=== PATIENT | female | born 1935 | race Caucasian/White ===

== ENCOUNTER 2017-03-03 16:32 | Inpatient (IN) | payer MEDICARE, OTHER ==
[2017-03-03] VITALS (7 sets, daily range): BP systolic 118–153; BP diastolic 54–82; PULSE 82–183; RESP 14–22; TEMP 97.3–97.9; O2SAT 83–98
[~2017-03-03] VITALS: Ht 163.8 cm; Wt 54.6 kg
[~2017-03-03 16:32] MED LIST: CALC1TAB16 PO; CALC500C16 CHEW; DIPH25CA PO; LEVO75TA3 PO; LISI-519 PO; MENT4GEL2 TOPICAL; OMEGCAP PO; POLYDRO EACH EYE; PRED10 PO; SACC1CAP3 PO; TYLE325T PO; VITA250T5 PO; [UNRECOGNIZED DRUG - CODE] IV
[2017-03-03] MEDS ORDERED: SODIUM CHLORID 0.9% 500 ML INJ 500 ML IV ONE (17:00)
[2017-03-03] MEDS ORDERED: DILTIAZEM INJ 125 MG in SODIUM CHLORIDE 0.9% INJ 100 ML IV PRN ×2 (17:00→19:45)
[2017-03-03] MEDS ORDERED: SODIUM CHLORIDE 0.9% FLUSH 5 ML FLUSH IV FLUSH PRN (17:00)
[2017-03-03] MEDS ORDERED: SODIUM CHLORIDE 0.9% FLUSH 10 ML FLUSH IVF PRN (17:00)
[2017-03-03] MEDS ORDERED: DILTIAZEM HCL 25 MG/5 ML VIAL IV PUSH ONE (17:00)
--- NOTE | 2017-03-03 17:19 | PD ---
HPI Chief Complaint: Cardiac Complaint Time Seen by Provider: 16:53 Travel History International Travel<30 days: No Contact w/Intl Traveler<30days: No Traveled to known affect area: No History of Present Illness HPI 81-year-old female patient with history of myasthenia gravis, chronic anemia, presents to the ER today because of intermittent dizziness, palpitations, found to be very tachycardic in the ER. She denies any shortness of breath or chest pains. She denies any vomiting, fevers, or other symptoms. She denies any black stools or blood in the stools. She states she is chronically anemic but they do not know why. Modifying Factors: None Associated Signs & Symptoms: Dizziness, palpitations Risk Factors: None PFSH Past Medical History Arthritis: Yes (jassi. shoulders) Cardiovascular Problems: No Genitourinary: No Musculoskeletal: Yes Neurologic: Yes (mystania gravis) Reproductive: No Respiratory: No Past Surgical History Gynecologic Surgery: Yes (tubal ligation 40 years ago) Social History Alcohol Use: No Tobacco Use: No Substance Use: No Allergies-Medications (Allergen,Severity, Reaction): Coded Allergies: levofloxacin (Unverified Allergy, Intermediate, rash, 03/03/17) Reported Meds & Prescriptions Reported Meds & Active Scripts Active Reported Diphenhydramine (Diphenhydramine HCl) 25 Mg Cap 25 Mg PO BEFORE PRIVIGEN Lisinopril 5 Mg Tab 5 Mg PO DAILY Lubricant Eye Drops Dry Eye Opth (Polyethylene Glycol-Propylene Opth) 0.4-0.3% Drops 1-2 Drop EACH EYE PRN Calcium Citrate-Vitamin D 315-200 Mg-Unit Tab 1 Tab PO DAILY Calcium Carbonate (Antacid) 500 Mg Chew 1,000 Mg CHEW PRN Tylenol (Acetaminophen) 325 Mg Tab 650 Mg PO Q4H PRN Privigen Inj (Immune Globulin) 20 Gm/200 Ml Inj 60 Gm IV [id number] Biofreeze Topical (Menthol Topical) 4 % Gel 1 Applic TOPICAL Q4H PRN [place]-3 Fish Oil/Vitamin (Fish Oil-Cholecalciferol) 1,000-1,000 Mg Cap 1 Cap PO DAILY Levothyroxine (Levothyroxine Sodium) 75 Mcg Tab 75 Mcg PO DAILY Prednisone 10 Mg Tab 10 Mg PO DAILY Probiotic (Saccharomyces Boulardii) Unknown Strength Cap Unknown Dose PO DAILY Vitamin B-12 (Cyanocobalamin) Unknown Strength Tab Unknown Dose PO DAILY Review of Systems Except as stated in HPI: all other systems reviewed are Neg Physical Exam Narrative GENERAL: Pleasant elderly white female patient currently in mild distress. Awake and oriented 3. SKIN: Focused skin assessment warm/dry. HEAD: Atraumatic. Normocephalic. EYES: Pupils equal and round. No scleral icterus. No injection or drainage. ENT: No nasal bleeding or discharge. Mucous membranes pink and moist. NECK: Trachea midline. No JVD. CARDIOVASCULAR: Fast and irregularly irregular. Pulses are present and equal bilaterally. RESPIRATORY: No accessory muscle use. Clear to auscultation. Breath sounds equal bilaterally. GASTROINTESTINAL: Abdomen soft, non-tender, nondistended. Hepatic and splenic margins not palpable. MUSCULOSKELETAL: No obvious deformities. No clubbing. No cyanosis. No edema. NEUROLOGICAL: Awake and alert. No obvious cranial nerve deficits. Motor grossly within normal limits. Normal speech. PSYCHIATRIC: Appropriate mood and affect; insight and judgment normal. Data Data Last Documented VS Vital Signs Date Time Temp Pulse Resp B/P (MAP) Pulse Ox O2 Delivery O2 Flow Rate FiO2 03/03/17 17:23 122 162/65 03/03/17 16:47 16 98 Room Air 03/03/17 16:42 97.9 Orders Orders Complete Blood Count With Diff (03/03/17 16:53) Comprehensive Metabolic Panel (03/03/17 16:53) Magnesium (Mg) (03/03/17 16:53) Ckmb (Isoenzyme) Profile (03/03/17 16:53) Troponin I (03/03/17 16:53) Act Partial Throm Time (Ptt) (03/03/17 16:53) Prothrombin Time / Inr (Pt) (03/03/17 16:53) Urinalysis - C+S If Indicated (03/03/17 16:53) Chest, Single Ap (03/03/17 16:53) Ecg Monitoring (03/03/17 16:53) Iv Access Insert/Monitor (03/03/17 16:53) Oximetry (03/03/17 16:53) Sodium Chloride 0.9% Flush (Ns Flush) (03/03/17 17:00) Diltiazem Inj (Cardizem Inj) (03/03/17 17:00) Diltiazem Inj (Cardizem Inj) (03/03/17 17:00) Sodium Chloride 0.9% Flush (Ns Flush) (03/03/17 17:00) Sodium Chlorid 0.9% 500 Ml Inj (Ns 500 M (03/03/17 17:00) Electrocardiogram (03/03/17 16:49) Enoxaparin Inj (Lovenox Inj) (03/03/17 18:45) Labs Laboratory Tests Test 03/03/17 16:57 White Blood Count 11.3 TH/MM3 Red Blood Count 3.39 MIL/MM3 Hemoglobin 11.3 GM/DL Hematocrit 33.8 % Mean Corpuscular Volume 99.8 FL Mean Corpuscular Hemoglobin 33.2 PG Mean Corpuscular Hemoglobin Concent 33.3 % Red Cell Distribution Width 12.5 % Platelet Count 453 TH/MM3 Mean Platelet Volume 6.6 FL Neutrophils (%) (Auto) 84.5 % Lymphocytes (%) (Auto) 9.7 % Monocytes (%) (Auto) 5.3 % Eosinophils (%) (Auto) 0.1 % Basophils (%) (Auto) 0.4 % Neutrophils # (Auto) 9.5 TH/MM3 Lymphocytes # (Auto) 1.1 TH/MM3 Monocytes # (Auto) 0.6 TH/MM3 Eosinophils # (Auto) 0.0 TH/MM3 Basophils # (Auto) 0.0 TH/MM3 CBC Comment DIFF FINAL Differential Comment Prothrombin Time 10.9 SEC Prothromb Time International Ratio 1.0 RATIO Activated Partial Thromboplast Time 28.9 SEC Blood Urea Nitrogen 12 MG/DL Creatinine 0.77 MG/DL Random Glucose 170 MG/DL Total Protein 7.9 GM/DL Albumin 3.0 GM/DL Calcium Level 10.2 MG/DL Magnesium Level 1.8 MG/DL Alkaline Phosphatase 82 U/L Aspartate Amino Transf (AST/SGOT) 19 U/L Alanine Aminotransferase (ALT/SGPT) 14 U/L Total Bilirubin 0.4 MG/DL Sodium Level 127 MEQ/L Potassium Level 4.2 MEQ/L Chloride Level 90 MEQ/L Carbon Dioxide Level 27.4 MEQ/L Anion Gap 10 MEQ/L Estimat Glomerular Filtration Rate 72 ML/MIN Total Creatine Kinase 93 U/L Troponin I 0.05 NG/ML MDM Medical Decision Making Medical Screen Exam Complete: Yes Emergency Medical Condition: Yes Medical Record Reviewed: Yes Interpretation(s) EKG shows A. fib with rapid ventricular response at a rate of 170 bpm. No signs of acute ST-T changes. Laboratory Tests Test 03/03/17 16:57 White Blood Count 11.3 TH/MM3 (4.0-11.0) Red Blood Count 3.39 MIL/MM3 (4.00-5.30) Hemoglobin 11.3 GM/DL (11.6-15.3) Hematocrit 33.8 % (35.0-46.0) Platelet Count 453 TH/MM3 (150-450) Mean Platelet Volume 6.6 FL (7.0-11.0) Neutrophils (%) (Auto) 84.5 % (16.0-70.0) Neutrophils # (Auto) 9.5 TH/MM3 (1.8-7.7) Random Glucose 170 MG/DL (74-106) Albumin 3.0 GM/DL (3.4-5.0) Calcium Level 10.2 MG/DL (8.5-10.1) Sodium Level 127 MEQ/L (136-145) Chloride Level 90 MEQ/L (98-107) Estimat Glomerular Filtration Rate 72 ML/MIN (>89) Last 24 hours Impressions Chest X-Ray 03/03/17 1653 Signed Impressions: Service Date/Time: Friday, March 03, 2017 17:09 - CONCLUSION: Cardiomegaly with chronic interstitial changes. Eduardo Broderick Jr., MD Differential Diagnosis Dizziness, palpitations: Dysrhythmias versus dehydration versus ACS versus metabolic issues versus pneumonia versus CHF Narrative Course Patient was given Cardizem in the ER and placed on Cardizem drip with good rate response. Vital signs are stable in the ER. Lab work did not indicate significant metabolic issues. Chest x-ray was unremarkable for any acute processes. At this point, patient was discussed with Dr. Tom for admission. Lovenox was given in the ER per discussion. He agrees to admit the patient. Diagnosis Primary Impression: New onset a-fib Admitting Information Admitting Physician Requests: Admit Bart Levin MD Mar 03, 2017 17:19
[2017-03-03 17:31] LABS: AUTOMATED NEUTROPHIL # 9.5 TH/MM3 (1.8-7.7); BASOPHIL % 0.4 % (0.0-2.0); EOSINOPHIL % 0.1 % (0.0-4.0); HEMATOCRIT 33.8 % (35.0-46.0); HEMO FLAGS DIFF FINAL; LYMPH % 9.7 % (9.0-44.0); LYMPHOCYTE # 1.1 TH/MM3 (1.0-4.8); MEAN CELL VOLUME 99.8 FL (80.0-100.0); MEAN CORPUSCULAR HEMOGLOBIN 33.2 PG (27.0-34.0); MEAN CORPUSCULAR HGB CONC 33.3 % (32.0-36.0); MONO % 5.3 % (0.0-8.0); NEUT % 84.5 % (16.0-70.0); PLATELET COUNT 453 TH/MM3 (150-450); RED BLOOD COUNT 3.39 MIL/MM3 (4.00-5.30); RED CELL DISTRIBUTION WIDTH 12.5 % (11.6-17.2); WHITE BLOOD COUNT 11.3 TH/MM3 (4.0-11.0)
--- NOTE | 2017-03-03 17:35 | RADRPT ---
EXAM DATE/TIME: 03/03/2017 17:09 [facility] COMPARISON: No previous studies available for comparison. INDICATIONS : Short of breath. MEDICAL HISTORY : None. SURGICAL HISTORY : None. ENCOUNTER: Initial ACUITY: 1 day PAIN SCORE: 0/10 LOCATION: Bilateral chest FINDINGS: A single portable frontal view the chest shows chronic interstitial changes. No infiltrates or effusi ons. Heart is mildly enlarged. The degenerative spine. High riding humeral heads bilaterally. Erosive changes involving the left humeral head. CONCLUSION: Cardiomegaly with chronic interstitial changes. Eduardo Broderick Jr., MD on March 03, 2017 at 17:27 Board Certified Radiologist. This report was verified electronically.
[2017-03-03 17:46] LABS: ANION GAP 10 MEQ/L (5-15); AST (GOT) 19 U/L (15-37); BICARBONATE 27.4 MEQ/L (21.0-32.0); BLOOD UREA NITROGEN 12 MG/DL (7-18); CHLORIDE 90 MEQ/L (98-107); GLOMERULAR FILTRATION RATE 72 ML/MIN (>89); MAGNESIUM 1.8 MG/DL (1.5-2.5); POTASSIUM 4.2 MEQ/L (3.5-5.1); SODIUM (NA) 127 MEQ/L (136-145)
[2017-03-03 17:47] LABS: ALT (GPT) 14 U/L (10-53); APTT (PATIENT) 28.9 SEC (24.3-30.1); PROTHROMBIN TIME - PATIENT 10.9 SEC (9.8-11.6)
[2017-03-03 17:51] LABS: ALKALINE PHOSPHATASE 82 U/L (45-117); TOTAL BILIRUBIN ADULT 0.4 MG/DL (0.2-1.0)
[2017-03-03 17:54] LABS: CREATINE KINASE 93 U/L (26-192)
[2017-03-03] MEDS ORDERED: ENOXAPARIN SODIUM 60 MG/0.6 ML SYRINGE SQ ONE (18:45)
[2017-03-03 18:49] LABS: BLOOD, URINE SMALL (NEG); COMMENT (UR) CULT NOT INDICATED; CULTURE IF INDICATED CULT NOT INDICATED; GLUCOSE,URINE 70 mg/dL (NEG); KETONE, URINE NEG (NEG); NITRITE,URINE NEG (NEG); URINE COLOR LIGHT-YELLOW (YELLW/STRAW)
[2017-03-03] MEDS ORDERED: ARTIFICIAL TEARS OPTH SOLN 15 ML BTL EACH EYE PRN (19:30)
[2017-03-03] MEDS ORDERED: MENTHOL TOPICAL PRN (19:30)
[2017-03-03] MEDS ORDERED: NALOXONE HCL 0.4 MG/ML AMP IV PUSH PRN (19:45)
[2017-03-03] MEDS ORDERED: MAGNESIUM HYDROXIDE SUSP 30 ML CUP PO PRN (19:45)
[2017-03-03] MEDS ORDERED: ACETAMINOPHEN 325 MG TAB PO PRN (19:45)
[2017-03-03] MEDS ORDERED: ONDANSETRON HCL 4 MG/2 ML VIAL IVP PRN (19:45)
[2017-03-03] MEDS ORDERED: SODIUM CHLORIDE 0.9% FLUSH 10 ML FLUSH IV FLUSH PRN (19:45)
[2017-03-03] MEDS: ASPIRIN 81 MG CHEW TAB PO SCH (20:22)
[2017-03-03] MEDS: SODIUM CHLORIDE 0.9% FLUSH 10 ML FLUSH IV FLUSH SCH (20:54)
[2017-03-03] MEDS: DOCUSATE SODIUM 50 MG/SENNA 8.6 MG TAB PO SCH (21:00)
[2017-03-04] VITALS (9 sets, daily range): BP systolic 127–156; BP diastolic 58–82; PULSE 88–110; RESP 16–20; TEMP 97.6–98.3; O2SAT 93–96
[2017-03-04 05:44] LABS: AUTOMATED NEUTROPHIL # 5.5 TH/MM3 (1.8-7.7); BASOPHIL # 0.1 TH/MM3 (0-0.2); EOSINOPHIL % 0.2 % (0.0-4.0); HEMATOCRIT 30.3 % (35.0-46.0); LYMPH % 22.3 % (9.0-44.0); LYMPHOCYTE # 1.8 TH/MM3 (1.0-4.8); MEAN CELL VOLUME 99.3 FL (80.0-100.0); MEAN CORPUSCULAR HEMOGLOBIN 34.2 PG (27.0-34.0); MEAN CORPUSCULAR HGB CONC 34.4 % (32.0-36.0); MONO % 10.5 % (0.0-8.0); PLATELET COUNT 394 TH/MM3 (150-450); RED BLOOD COUNT 3.05 MIL/MM3 (4.00-5.30); RED CELL DISTRIBUTION WIDTH 12.7 % (11.6-17.2); WHITE BLOOD COUNT 8.3 TH/MM3 (4.0-11.0)
[2017-03-04 05:50] LABS: HEMO FLAGS AUTO DIFF
[2017-03-04 06:07] LABS: BICARBONATE 29.8 MEQ/L (21.0-32.0)
[2017-03-04 06:08] LABS: POTASSIUM 4.2 MEQ/L (3.5-5.1)
[2017-03-04 07:00] LABS: SCAN/DIFF AUTO DIFF CONFIRMED
[2017-03-04] MEDS ORDERED: LISINOPRIL 5 MG TAB PO SCH (09:00)
[2017-03-04] MEDS ORDERED: predniSONE 10 MG TAB PO SCH (09:00)
[2017-03-04] MEDS: CALCIUM/VITAMIN D 250 MG/125 U TAB PO SCH (09:00)
[2017-03-04] MEDS: SODIUM CHLORIDE 0.9% FLUSH 10 ML FLUSH IV FLUSH SCH ×2 (09:00→22:11)
[2017-03-04] MEDS: DOCUSATE SODIUM 50 MG/SENNA 8.6 MG TAB PO SCH ×2 (10:42→22:11)
[2017-03-04] MEDS: ASPIRIN 81 MG CHEW TAB PO SCH (10:42)
[2017-03-04] MEDS: LEVOTHYROXINE SODIUM 100 MCG TAB PO SCH (11:15)
[2017-03-04] MEDS: FLUTICASONE PROPIONATE 50 MCG/ACT 16 GM NASAL SPRAY NASAL SCH ×2 (11:15→22:10)
--- NOTE | 2017-03-04 11:21 | MB ---
cc: JUNE ABREU M.D. DATE OF CONSULTATION: 03/04/2017 REASON FOR CONSULTATION Atrial fibrillation. HISTORY OF PRESENT ILLNESS The patient is an 81-year-old white female with a history of myasthenia gravis, left breast cancer, who was in her usual state of health up until the day of admission when she began to experience quivering palpitations. There was no associated dizziness, syncope, near-syncope, chest pain or shortness of breath. The palpitations subsided after a couple of hours. In the emergency department she was found to be in atrial fibrillation with a rapid ventricular response. Since coming into the hospital she has felt "just fine." She denies any recent chest pains, pedal edema, paroxysmal nocturnal dyspnea. For the most part she is active. PAST MEDICAL HISTORY As above. PAST SURGICAL HISTORY 1. Left lumpectomy for breast cancer. 2. Tubal ligation. MEDICATIONS Her cardiac medications at home are none. She had been on low-dose lisinopril in the past but it was stopped due to low blood pressures. ALLERGIES LEVAQUIN. FAMILY HISTORY Noncontributory. SOCIAL HISTORY The patient is a former smoker. There is no history of alcohol abuse. REVIEW OF SYSTEMS As in the history of present illness, otherwise negative or noncontributory. She also denies headache, melena, bright red blood per rectum, dyspepsia, abdominal pain. PHYSICAL EXAMINATION VITAL SIGNS: On physical examination her blood pressure is 134/66 with a pulse of 80, respirations 20. GENERAL: In general she is a well-developed, well-nourished white female in no acute distress HEENT/NECK: Jugular venous pressure is normal. Carotid pulses are 2+ bilaterally and without bruits. CHEST: Examination of the chest reveals clear lung mejia. CARDIAC: On cardiac examination she has a regular rhythm and rate without S3, S4, or murmur. ABDOMEN: On abdominal examination she has a soft, nontender abdomen. Bowel sounds are present. There is no definite hepatosplenomegaly. EXTREMITIES: Examination of extremities reveals no clubbing, cyanosis or edema. EKG EKG shows atrial fibrillation with a rapid ventricular response, otherwise normal EKG. IMAGING Chest x-ray shows no acute disease. LABORATORY Laboratory data includes WBC 8.3, hemoglobin 10.4, platelets 394, potassium 4.2, BUN 7, creatinine 0.57, troponin 0.06, TSH 2.85. IMPRESSION Paroxysmal atrial fibrillation in this 81-year-old white female with a history of myasthenia gravis and breast cancer. At this time she has reverted back to sinus rhythm. Overall there is no definite evidence for acute coronary syndrome. The slightly elevated troponin level may be due to the tachyarrhythmia. With respect to her thromboembolic risk, it is probably overall low. She denies any history of hypertension, diabetes, stroke, congestive heart failure. She may have been on low-dose lisinopril in the past, but it was stopped due to low blood pressures. RECOMMENDATIONS 1. Start oral Cardizem. 2. Continue daily aspirin. 3. Await her 2-D echo. 4. Continue to monitor until tomorrow morning. 5. Should she have significant atrial fibrillation recurrences in the future, consider anticoagulation therapy such as with Eliquis or Xarelto. MD MARYCRUZ Rios/LUIS ANTONIO /10:44 AM /11:09 AM MTDOmar
--- NOTE | 2017-03-04 12:25 | MH ---
cc: HARRISON TOM DATE OF ADMISSION: 03/03/2017 DATE OF : [address] Harrison Tom[address] PRIMARY CARE PHYSICIAN Dr. Monique. REASON FOR ADMISSION Dizziness, palpitations. HISTORY OF PRESENT ILLNESS The patient is very pleasant 81-year-old female with significant past medical history of myasthenia gravis, also has a history of chronic anemia, arthritis, who came to the ER because of the intermittent dizziness and palpitations. The patient came to the ER and in the ER was evaluated by the ER physician and found to have a new onset atrial fibrillation with RVR. The patient was given Cardizem and started on IV Cardizem, and recommended for admission. The patient at present has no complaint. She has no nausea or vomiting. No chest pain, diaphoresis or palpitations. There is no dizziness. There is no abdominal pain, diarrhea or constipation. She denies any diaphoresis. The patient has no other associated symptoms. As per patient she is taking prednisone and tapering down to 5 mg per day. She is not taking lisinopril anymore at all. PAST MEDICAL HISTORY 1. history of hypertension. 2. Myasthenia gravis. 3. Chronic anemia. MEDICATION Reviewed, please EMR. ALLERGIES The patient is allergic to LEVAQUIN. SOCIAL HISTORY The patient does not smoke, drink or do any drugs. The patient is a retired nurse. REVIEW OF SYSTEMS As described above in the history of present illness, negative for 10 systems. FAMILY HISTORY Noncontributory. PHYSICAL EXAMINATION GENERAL: The patient is alert and oriented x3, well-built, well-nourished, appropriate for age and condition, lying on bed without any apparent distress. As per patient she usually walks with a walking cane and walker and sometimes she uses a wheelchair as well. VITAL SIGNS: The patient is afebrile, pulse is 90, respiratory rate is 20, blood pressure 134/66, pulse ox 95% on room air. HEENT: Head is normocephalic. Negative conjunctival icterus. Mouth unremarkable. NECK: Supple. No increased JVD. Negative thyromegaly. Central trachea. RESPIRATORY SYSTEM: Chest is clear to auscultation. CVS: S1, S2 audible. Unable to hear any S3 gallop. GI: Abdomen soft, no organomegaly. Positive bowel sounds. MUSCULOSKELETAL: Extremities, no cyanosis or pedal edema appreciated. PEG DRIVER: Grossly intact. SKIN: Warm and moist. PSYCHE: Appropriate mood and affect. INVESTIGATIONS Chest x-ray was done which shows cardiomegaly with chronic interstitial changes. LABORATORY DATA WBC and platelet count within normal limits. Hemoglobin 10.4, hematocrit 30.3. Chemistry yesterday sodium was 127, today 130. Chloride 93. BMP within normal limits. Troponin first set was 0.05, second 0.06, third 0.06. TSH level is within normal limits. LFTs within normal limits. PT/INR APTT within normal limits. Urine shows urine glucose 70, urine occult blood is small and urine leukocyte esterase is small. EKG Shows atrial fibrillation at rate of 167 beats per minute. ASSESSMENT 1. Dizziness, palpitations secondary to atrial fibrillation. 2. Atrial fibrillation new onset with RVR on admission. 3. Hypothyroidism. 4. Myasthenia gravis history. 5. Chronic anemia. 6. Arthritis. PLAN 1. Admit to the floor. 2. Cardiology consult. 3. IV Cardizem. 4. Mild hyponatremia, improving. 5. Anemia, stable. 6. Continue home medications as indicated. 7. Monitor blood pressure. 8. Restart some of home medications as indicated including Levothyroxine. 9. Continue steroid 5 mg as she is taking at home. 10. Discussed with the patient. 11. Discussed with RN in detail. Further recommendation to follow as per patient progress. Harrison Tom MD JP/LESLEY /11:26 AM /11:53 AM
--- NOTE | 2017-03-04 12:43 | ECHRPT ---
Indication: ATRIAL FIB/FLUTTER CONCLUSIONS Normal left ventricular size. Normal wall motion.Wall thickness is normal. The left ventricular systolic function is normal with an estimated ejection fraction in the range of 55-60%. The left atrial size is mildly dilated. [id number] mitral valve regurgitation. Severe mitral annular calcification. Mild aortic valve sclerosis is present. Trace aortic valve regurgitation. There is mild tricuspid regurgitation. The estimated pulmonary arterial pressure is 40 mmHg. BP: 127 / 58 HR: Rhythm: Atrial fibrillation, Atrial flut ter, PVCs, PACs MEASUREMENTS (Male / Female) Normal Values Technical Quality:Fair 2D ECHO LV Diastolic Diameter PLAX 4.2 cm 4.2 - 5.9 / 3.9 - 5.3 cm LV Systolic Diameter PLAX 3.1 cm IVS Diastolic Thickness 0.8 cm 0.6 - 1.0 / 0.6 - 0.9 cm LVPW Diastolic Thickness 0.8 cm 0.6 - 1.0 / 0.6 - 0.9 cm LV Relative Wall Thickness 0.4 LVOT Diameter 1.7 cm Aortic Root Diameter 3.1 cm LA Systolic Diameter LX 3.6 cm 3.0 - 4.0 / 2.7 - 3.8 cm M-MODE AV Cusp Separation MM 1.6 cm DOPPLER AV Peak Velocity 128.0 cm/s AV Peak Gradient 6.6 mmHg AV Mean Gradient 4.0 mmHg AV Velocity Time Integral 26.3 cm LVOT Peak Velocity 78.5 cm/s LVOT Peak Gradient 2.5 mmHg LVOT Velocity Time Integral 17.8 cm AV Area Cont Eq vti 1.5 cm AV Area Cont Eq pk 1.4 cm MV Peak Velocity 185.5 cm/s MV Peak Gradient 13.8 mmHg MV Mean Velocity 105.5 cm/s MV Mean Gradient 5.0 mmHg MV Area PHT 2.4 cm Mitral E Point Velocity 164.0 cm/s Mitral A Point Velocity 112.0 cm/s Mitral E to A Ratio 1.5 LV E' Lateral Velocity 6.5 cm/s Mitral E to LV E' Lateral Ratio 25.1 LV E' Septal Velocity 3.9 cm/s Mitral E to LV E' Septal Ratio 42.1 TR Peak Velocity 282.0 cm/s TR Peak Gradient 31.8 mmHg Right Atrial Pressure 10.0 mmHg Pulmonary Artery Systolic Pressu 41.8 mmHg Right Ventricular Systolic Press 41.8 mmHg PV Peak Velocity 53.4 cm/s PV Peak Gradient 1.1 mmHg FINDINGS LEFT VENTRICLE Normal left ventricular size. Normal wall motion.Wall thickness is normal. The left ventricular systolic function is normal with an estimated ejection fraction in the range of 55-60%. RIGHT VENTRICLE Normal right ventricular size and systolic function. LEFT ATRIUM The left atrial size is mildly dilated. RIGHT ATRIUM The right atrial size is normal. ATRIAL SEPTUM Normal atrial septal thickness without atrial level shunting by limited color doppler interrogation. AORTA The aortic root and proximal ascending aorta are normal in size on limited imaging. MITRAL VALVE [id number] mitral valve regurgitation. Severe mitral annular calcification. AORTIC VALVE Mild aortic valve sclerosis is present. Trace aortic valve regurgitation. TRICUSPID VALVE There is mild tricuspid regurgitation. The estimated pulmonary arterial pressure is 40 mmHg. PULMONARY VALVE No pulmonary valve regurgitation or stenosis. VESSELS The inferior vena cava is normal in size. PERICARDIUM No pericardial effusion. Nico Martino MD (Electronically Signed) Final Date:04 March 2017 12:41
[2017-03-04] MEDS: DILTIAZEM-CD 180 MG CAP ER PO SCH (13:36)
--- NOTE | 2017-03-04 14:15 | EKG ---
Date Performed: 03/03/2017 Time Performed: 16:49:19 PTAGE: 81 years EKG: ATRIAL FIBRILLATION WITH RAPID VENTRICULAR RESPONSE MODERATE ST DEPRESSION ABNORMAL ECG INT ERPRETATION BASED ON A DEFAULT AGE OF 40 YEARS NO PREVIOUS TRACING DOCTOR: Brian Petit Interpretating Date/Time 03/04/2017 14:13:27
[2017-03-05] VITALS (16 sets, daily range): BP systolic 100–138; BP diastolic 50–81; PULSE 79–165; RESP 14–20; TEMP 97.4–98.8; O2SAT 90–98
[2017-03-05] MEDS ORDERED: DILTIAZEM HCL 25 MG/5 ML VIAL IV ONE (06:45)
[2017-03-05] MEDS: LEVOTHYROXINE SODIUM 100 MCG TAB PO SCH (06:48)
[2017-03-05] MEDS ORDERED: AMIODARONE INJ 150 MG in DEXTROSE 5% IN WATER 100ML INJ 100 ML IV ONE ×2 (08:07)
[2017-03-05] MEDS: DILTIAZEM-CD 180 MG CAP ER PO SCH (08:07)
[2017-03-05] MEDS: CALCIUM/VITAMIN D 250 MG/125 U TAB PO SCH (08:07)
--- NOTE | 2017-03-05 08:07 | PD.CARD.PN ---
Subjective Subjective Remarks Racing palpitations earlier this morning. Mild dizziness and nausea earlier, none now. No CP, near syncope. Slept very well. Objective Medications Item Value Date Time Diltiazem HCl 180 mg 03/04/17 1100 (Cardizem Cd) DAILY/PO 03/04/17 1336 Aspirin 81 mg 03/03/17 1945 (Aspirin Chew) DAILY/PO 03/04/17 1042 Current Medications Medications (Trade) Dose Ordered Sig/Naldo Route Start Time Stop Time Status Last Admin (Oscal-D 250-125) 250 mg DAILY PO 03/04/17 09:00 Patient Own Medication PT OWN MED: Ment... Q4H PRN TOPICAL 03/03/17 19:30 Future Hold (Tears Naturale Opth Soln) 1-2 drops to both eyes q ... Q4H PRN EACH EYE 03/03/17 19:30 (NS Flush) 2 ml UNSCH PRN IV FLUSH 03/03/17 19:45 03/05/17 06:50 (NS Flush) 2 ml BID IV FLUSH 03/03/17 21:00 03/04/17 22:11 (Tylenol) 650 mg Q4H PRN PO 03/03/17 19:45 (Zofran Inj) 4 mg Q6H PRN IVP 03/03/17 19:45 (Narcan Inj) 0.4 mg UNSCH PRN IV PUSH 03/03/17 19:45 (Connie-Colace) 1 tab BID PO 03/03/17 21:00 03/04/17 22:11 (Milk Of Magnesia Liq) 30 ml Q12H PRN PO 03/03/17 19:45 (Aspirin Chew) 81 mg DAILY PO 03/03/17 19:45 03/04/17 10:42 (Cardizem Cd) 180 mg DAILY PO 03/04/17 11:00 03/04/17 13:36 (Deltasone) 5 mg DAILY PO 03/05/17 09:00 (Synthroid) 100 mcg DAILY@0600 PO 03/04/17 11:15 03/05/17 06:48 (Flonase Cortez Spr) 1 spray BID NASAL 03/04/17 11:15 03/04/17 22:10 Vital Signs / I&O Vital Signs Date Time Temp Pulse Resp B/P (MAP) Pulse Ox O2 Delivery O2 Flow Rate FiO2 03/05/17 06:55 98.0 148 18 114/62 (79) 95 03/05/17 06:45 97.6 165 18 118/65 (82) 94 03/05/17 03:25 98.3 98 16 138/68 (91) 95 03/04/17 23:52 97.6 99 16 156/80 (105) 95 03/04/17 20:45 97.9 90 16 143/74 (97) 94 03/04/17 20:00 88 03/04/17 20:00 Room Air 03/04/17 16:00 98.2 107 20 153/82 (105) 96 03/04/17 12:00 98.3 97 20 154/72 (99) 96 I/O 03/04/17 03/04/17 03/04/17 03/05/17 03/05/17 03/05/17 07:00 15:00 23:00 07:00 15:00 23:00 Intake Total 60 ml 480 ml 480 ml Output Total 850 ml 1300 ml 1150 ml Balance -790 ml -820 ml -670 ml Intake Oral 60 ml 480 ml 480 ml Output Urine Total 850 ml 1300 ml 1150 ml # Bowel Movements 0 0 0 Physical Exam GENERAL: Well developed, well nourished. No acute distress. HEENT: Jugular venous pressure is normal. CHEST: Lungs clear to auscultation bilaterally. Unlabored respiratory effort. CARDIAC: Tachycardic irregular rhythm without S3, S4, or murmur. ABDOMEN: Soft, nontender, no hepatosplenomegaly. Bowel sounds present. EXTREMITIES: No clubbing, cyanosis, or edema. Assessment and Plan Problem List: (1) Paroxysmal atrial fibrillation ICD Codes: I48.0 - Paroxysmal atrial fibrillation Status: Acute Plan: Recurrent atrial fib this morning with RVR associated with palpitations, mild dizziness. HR still elevated now. REC IV Amiodarone anticoagulation therapy with Eliquis or Xarelto--->patient declines, wishes to remain on daily aspirin (2) Elevated troponin ICD Codes: R74.8 - Abnormal levels of other serum enzymes Status: Acute Plan: Minimal troponin elevations. Doubt due to ACS. More likely due to atrial fib tachyarrhythmia. Code Status full code Discussed Condition With patient Nico Martino MD Mar 05, 2017 08:07
[2017-03-05] MEDS: SODIUM CHLORIDE 0.9% FLUSH 10 ML FLUSH IV FLUSH SCH ×2 (08:08→20:46)
[2017-03-05] MEDS: DOCUSATE SODIUM 50 MG/SENNA 8.6 MG TAB PO SCH ×2 (08:08→20:46)
[2017-03-05] MEDS: predniSONE 5 MG TAB PO SCH (08:08)
[2017-03-05] MEDS: ASPIRIN 81 MG CHEW TAB PO SCH (08:09)
[2017-03-05] MEDS: FLUTICASONE PROPIONATE 50 MCG/ACT 16 GM NASAL SPRAY NASAL SCH ×2 (08:09→20:46)
[2017-03-05] MEDS ORDERED: AMIODARONE INJ 900 MG in DEXTROSE 5% IN WATE 500 ML INJ 482 ML IV PRN ×2 (08:17)
[2017-03-05] MEDS: AMIODARONE INJ 450 MG in D5W (EXCEL BAG) INJ 241 ML IV SCH ×2 (11:30→22:27)
--- NOTE | 2017-03-05 13:53 | HHI.PR ---
Subjective Remarks Patient is feeling okay now. This morning patient was feeling weak and has palpitations. had high heart rate. Review of systems a 12 point system otherwise unremarkable Objective Objective Results - Vital Signs Date Time Temp Pulse Resp B/P (MAP) Pulse Ox O2 Delivery O2 Flow Rate FiO2 03/05/17 12:20 93 130/65 03/05/17 12:15 98.1 93 18 130/65 (86) 97 03/05/17 12:05 98.1 84 18 130/62 (84) 95 03/05/17 12:05 84 130/62 03/05/17 12:02 98.7 93 20 114/55 (74) 96 03/05/17 12:00 97 Room Air 03/05/17 11:50 98.1 89 20 125/63 (83) 95 03/05/17 11:50 89 125/63 03/05/17 11:34 98.5 86 14 111/58 (75) 95 03/05/17 11:30 89 113/55 03/05/17 10:05 97.9 151 16 103/50 (67) 97 03/05/17 09:52 144 100/69 03/05/17 09:50 98.1 145 20 100/69 (79) 97 03/05/17 08:20 97.4 142 18 129/81 (97) 95 03/05/17 08:00 95 Room Air 03/05/17 08:00 97.8 136 20 113/61 (78) 93 03/05/17 07:54 139 03/05/17 06:55 98.0 148 18 114/62 (79) 95 03/05/17 06:45 97.6 165 18 118/65 (82) 94 03/05/17 03:25 98.3 98 16 138/68 (91) 95 03/04/17 23:52 97.6 99 16 156/80 (105) 95 03/04/17 20:45 97.9 90 16 143/74 (97) 94 03/04/17 20:00 88 03/04/17 20:00 Room Air 03/04/17 16:00 98.2 107 20 153/82 (105) 96 I/O 03/04/17 03/04/17 03/04/17 03/05/17 03/05/17 03/05/17 07:00 15:00 23:00 07:00 15:00 23:00 Intake Total 60 ml 480 ml 480 ml 100 ml Output Total 850 ml 1300 ml 1150 ml Balance -790 ml -820 ml -670 ml 100 ml Intake Oral 60 ml 480 ml 480 ml IV Total 100 ml Output Urine Total 850 ml 1300 ml 1150 ml # Bowel Movements 0 0 0 Result Diagram: 03/04/1751603/04/17516 Physical Exam Physical Exam GENERAL: The patient is alert and oriented x3, well-built, well-nourished, appropriate for age and condition, lying on bed without any apparent distress. As per patient she usually walks with a walking cane and walker and sometimes she uses a wheelchair as well. VITAL SIGNS: Reviewed HEENT: Head is normocephalic. Negative conjunctival icterus. Mouth unremarkable. NECK: Supple. No increased JVD. Negative thyromegaly. Central trachea. RESPIRATORY SYSTEM: Chest is clear to auscultation. CVS: S1, S2 audible. Unable to hear any S3 gallop. GI: Abdomen soft, no organomegaly. Positive bowel sounds. MUSCULOSKELETAL: Extremities, no cyanosis or pedal edema appreciated. INDEPENDENT CONSULTANT: Grossly intact. SKIN: Warm and moist. PSYCHE: Appropriate mood and affect. A/P Assessment and Plan 1. Dizziness, palpitations secondary to atrial fibrillation. 2. Atrial fibrillation new onset with RVR on admission. 3. Hypothyroidism. 4. Myasthenia gravis history. 5. Chronic anemia. 6. Arthritis. PLAN 1. Seen on the floor. 2. Cardiology consult. And input appreciated 3. Also on by mouth Cardizem. Had high heart rate this morning for which bolus Cardizem was ordered. After that still she had high heart rate for which started on amiodarone drip. 4. Mild hyponatremia, improving. 5. Anemia, stable. 6. Continue home medications as indicated. 7. Monitor blood pressure. 8. Restart some of home medications as indicated including Levothyroxine. 9. Continue steroid 5 mg as she is taking at home. 10. Discussed with the patient. 11. Discussed with RN in detail. Condition guarded Ariana Tom MD Mar 05, 2017 13:53
[2017-03-06] VITALS (8 sets, daily range): BP systolic 117–149; BP diastolic 58–84; PULSE 74–90; RESP 12–20; TEMP 97.1–99; O2SAT 95–96
[2017-03-06] MEDS: AMIODARONE INJ 450 MG in D5W (EXCEL BAG) INJ 241 ML IV SCH (00:02)
[2017-03-06] MEDS: LEVOTHYROXINE SODIUM 100 MCG TAB PO SCH (05:15)
[2017-03-06] MEDS: CALCIUM/VITAMIN D 250 MG/125 U TAB PO SCH (07:55)
[2017-03-06] MEDS: DILTIAZEM-CD 180 MG CAP ER PO SCH (07:56)
[2017-03-06] MEDS: DOCUSATE SODIUM 50 MG/SENNA 8.6 MG TAB PO SCH ×2 (07:56→21:13)
[2017-03-06] MEDS: predniSONE 5 MG TAB PO SCH (07:56)
[2017-03-06] MEDS: ASPIRIN 81 MG CHEW TAB PO SCH (07:56)
[2017-03-06] MEDS: FLUTICASONE PROPIONATE 50 MCG/ACT 16 GM NASAL SPRAY NASAL SCH ×2 (08:01→21:13)
[2017-03-06] MEDS: SODIUM CHLORIDE 0.9% FLUSH 10 ML FLUSH IV FLUSH SCH ×2 (08:17→21:14)
--- NOTE | 2017-03-06 08:45 | PD.CARD.PN ---
Subjective Subjective Remarks Denies palpitations, SOB, CP, dizziness, nausea. Objective Medications Item Value Date Time Amiodarone HCl 250 ml @ 33.33 mls/hr 03/05/17 0900 450 mg/Dextrose .Q7H31M/IV 03/06/17 0002 Diltiazem HCl 180 mg 03/04/17 1100 (Cardizem Cd) DAILY/PO 03/06/17 0756 Aspirin 81 mg 03/03/17 1945 (Aspirin Chew) DAILY/PO 03/06/17 0756 Current Medications Medications (Trade) Dose Ordered Sig/Naldo Route Start Time Stop Time Status Last Admin (Oscal-D 250-125) 250 mg DAILY PO 03/04/17 09:00 03/06/17 07:55 Patient Own Medication PT OWN MED: Ment... Q4H PRN TOPICAL 03/03/17 19:30 Future Hold (Tears Naturale Opth Soln) 1-2 drops to both eyes q ... Q4H PRN EACH EYE 03/03/17 19:30 (NS Flush) 2 ml UNSCH PRN IV FLUSH 03/03/17 19:45 03/05/17 06:50 (NS Flush) 2 ml BID IV FLUSH 03/03/17 21:00 03/05/17 08:08 (Tylenol) 650 mg Q4H PRN PO 03/03/17 19:45 (Zofran Inj) 4 mg Q6H PRN IVP 03/03/17 19:45 (Narcan Inj) 0.4 mg UNSCH PRN IV PUSH 03/03/17 19:45 (Connie-Colace) 1 tab BID PO 03/03/17 21:00 03/06/17 07:56 (Milk Of Magnesia Liq) 30 ml Q12H PRN PO 03/03/17 19:45 (Aspirin Chew) 81 mg DAILY PO 03/03/17 19:45 03/06/17 07:56 (Cardizem Cd) 180 mg DAILY PO 03/04/17 11:00 03/06/17 07:56 (Deltasone) 5 mg DAILY PO 03/05/17 09:00 03/06/17 07:56 (Synthroid) 100 mcg DAILY@0600 PO 03/04/17 11:15 03/06/17 05:15 (Flonase Cortez Spr) 1 spray BID NASAL 03/04/17 11:15 03/06/17 08:01 Amiodarone HCl 450 mg/Dextrose 250 ml @ 33.33 mls/ hr Q7H31M IV 03/05/17 09:00 03/06/17 00:02 Vital Signs / I&O Vital Signs Date Time Temp Pulse Resp B/P (MAP) Pulse Ox O2 Delivery O2 Flow Rate FiO2 03/06/17 07:10 98.5 82 14 135/62 (86) 95 03/06/17 04:00 Room Air 03/06/17 03:45 98.1 90 16 149/66 (93) 96 03/06/17 00:02 89 146/84 03/06/17 00:00 97.1 89 16 146/84 (104) 96 03/06/17 00:00 Room Air 03/05/17 22:27 80 129/61 03/05/17 21:00 97.5 90 16 131/59 (83) 90 03/05/17 20:45 Room Air 03/05/17 20:00 79 03/05/17 18:00 98 Room Air 03/05/17 15:54 98.8 85 20 124/69 (87) 98 03/05/17 12:20 93 130/65 03/05/17 12:15 98.1 93 18 130/65 (86) 97 03/05/17 12:05 98.1 84 18 130/62 (84) 95 03/05/17 12:05 84 130/62 03/05/17 12:02 98.7 93 20 114/55 (74) 96 03/05/17 12:00 97 Room Air 03/05/17 12:00 97 Room Air 03/05/17 11:50 98.1 89 20 125/63 (83) 95 03/05/17 11:50 89 125/63 03/05/17 11:34 98.5 86 14 111/58 (75) 95 03/05/17 11:30 89 113/55 03/05/17 10:05 97.9 151 16 103/50 (67) 97 03/05/17 09:52 144 100/69 03/05/17 09:50 98.1 145 20 100/69 (79) 97 I/O 10/19/03/05/17 03/05/17 03/06/17 03/06/17 03/06/17 07:00 15:00 23:00 07:00 15:00 23:00 Intake Total 480 ml 100 ml 357 ml Output Total 1150 ml 700 ml Balance -670 ml 100 ml -343 ml Intake Oral 480 ml 240 ml IV Total 100 ml 117 ml Output Urine Total 1150 ml 700 ml # Voids 3 # Bowel Movements 0 0 Physical Exam GENERAL: Well developed, well nourished. No acute distress. HEENT: Jugular venous pressure is normal. CHEST: Lungs clear to auscultation bilaterally. Unlabored respiratory effort. CARDIAC: Regular rate and rhythm without S3, S4, or murmur. ABDOMEN: Soft, nontender, no hepatosplenomegaly. Bowel sounds present. EXTREMITIES: No clubbing, cyanosis, or edema. Assessment and Plan Problem List: (1) Paroxysmal atrial fibrillation ICD Codes: I48.0 - Paroxysmal atrial fibrillation Status: Acute Plan: Remains in NSR on IV Amiodarone, oral Cardizem. Unremarkable echo this admission. REC change to oral Amiodarone; OK to discharge tomorrow on Amiodarone 400 mg qd , Cardizem CD 180 mg qd patient wishes to f/u in our [place] office; will refer to Dr. Walters anticoagulation therapy with Eliquis or Xarelto--->patient declines, wishes to remain on daily aspirin will have coverage see patient PRN tomorrow (2) Elevated troponin ICD Codes: R74.8 - Abnormal levels of other serum enzymes Status: Acute Plan: Minimal troponin elevations. Doubt due to ACS. More likely due to atrial fib tachyarrhythmia. Normal EF with normal wall motion on echo. Code Status full code Discussed Condition With patient Nico Martino MD Mar 06, 2017 08:45
--- NOTE | 2017-03-06 10:16 | HHI.PR ---
Subjective Remarks Patient is feeling okay now. This morning patient was feeling weak and has palpitations. Heart rate is controlled. Review of systems a 12 point system otherwise unremarkable Objective Objective Results - Vital Signs Date Time Temp Pulse Resp B/P (MAP) Pulse Ox O2 Delivery O2 Flow Rate FiO2 03/06/17 08:00 95 Room Air 03/06/17 07:10 98.5 82 14 135/62 (86) 95 03/06/17 04:00 Room Air 03/06/17 03:45 98.1 90 16 149/66 (93) 96 03/06/17 00:02 89 146/84 03/06/17 00:00 97.1 89 16 146/84 (104) 96 03/06/17 00:00 Room Air 03/05/17 22:27 80 129/61 03/05/17 21:00 97.5 90 16 131/59 (83) 90 03/05/17 20:45 Room Air 03/05/17 20:00 79 03/05/17 18:00 98 Room Air 03/05/17 15:54 98.8 85 20 124/69 (87) 98 03/05/17 12:20 93 130/65 03/05/17 12:15 98.1 93 18 130/65 (86) 97 03/05/17 12:05 98.1 84 18 130/62 (84) 95 03/05/17 12:05 84 130/62 03/05/17 12:02 98.7 93 20 114/55 (74) 96 03/05/17 12:00 97 Room Air 03/05/17 12:00 97 Room Air 03/05/17 11:50 98.1 89 20 125/63 (83) 95 03/05/17 11:50 89 125/63 03/05/17 11:34 98.5 86 14 111/58 (75) 95 03/05/17 11:30 89 113/55 I/O 03/05/17 03/05/17 03/05/17 03/06/17 03/06/17 03/06/17 07:00 15:00 23:00 07:00 15:00 23:00 Intake Total 480 ml 100 ml 357 ml Output Total 1150 ml 700 ml Balance -670 ml 100 ml -343 ml Intake Oral 480 ml 240 ml IV Total 100 ml 117 ml Output Urine Total 1150 ml 700 ml # Voids 3 # Bowel Movements 0 0 1 Result Diagram: 03/04/1751603/04/17516 Physical Exam Physical Exam GENERAL: The patient is alert and oriented x3, well-built, well-nourished, appropriate for age and condition, sitting on bed without any apparent distress. As per patient she usually walks with a walking cane and walker and sometimes she uses a wheelchair as well. VITAL SIGNS: Reviewed HEENT: Head is normocephalic. Negative conjunctival icterus. Mouth unremarkable. NECK: Supple. No increased JVD. Negative thyromegaly. Central trachea. RESPIRATORY SYSTEM: Chest is clear to auscultation. CVS: S1, S2 audible. Unable to hear any S3 gallop. GI: Abdomen soft, no organomegaly. Positive bowel sounds. MUSCULOSKELETAL: Extremities, no cyanosis or pedal edema appreciated. HOUSEKEEPER CLEANING COOKING: Grossly intact. SKIN: Warm and moist. PSYCHE: Appropriate mood and affect. A/P Assessment and Plan 1. Dizziness, palpitations secondary to atrial fibrillation. 2. Atrial fibrillation new onset with RVR on admission. 3. Hypothyroidism. 4. Myasthenia gravis history. 5. Chronic anemia. 6. Arthritis. PLAN 1. Seen on the floor. 2. Cardiology consult. And input appreciated 3. Also on by mouth Cardizem. on amiodarone drip. As per cardiology can go home tomorrow on amiodarone 400 mg daily and by mouth Cardizem to follow cardiology as outpatient 4. Mild hyponatremia, improving/better. 5. Anemia, stable. 6. Continue home medications as indicated. 7. Monitor blood pressure. 8. Restart some of home medications as indicated including Levothyroxine. 9. Continue steroid 5 mg as she is taking at home. 10. Discussed with the patient. 11. Discussed with RN in detail. Hopefully we see tomorrow if his stable Ariana Tom MD Mar 06, 2017 10:16
[2017-03-07] VITALS: BP 119/58; PULSE 86; RESP 16; TEMP 98; O2SAT 96
[2017-03-07 04:00] VITALS: BP 130/60; PULSE 91; RESP 16; TEMP 97.7; O2SAT 93
[2017-03-07] MEDS: LEVOTHYROXINE SODIUM 100 MCG TAB PO SCH (05:00)
[2017-03-07 08:00] VITALS: BP 118/58; PULSE 81; PULSE 88; RESP 20; TEMP 97.5; O2SAT 96
[2017-03-07] MEDS: DILTIAZEM-CD 180 MG CAP ER PO SCH (08:55)
[2017-03-07] MEDS: DOCUSATE SODIUM 50 MG/SENNA 8.6 MG TAB PO SCH (08:55)
[2017-03-07] MEDS: CALCIUM/VITAMIN D 250 MG/125 U TAB PO SCH (08:56)
[2017-03-07] MEDS: ASPIRIN 81 MG CHEW TAB PO SCH (08:56)
[2017-03-07] MEDS: predniSONE 5 MG TAB PO SCH (08:56)
[2017-03-07] MEDS: FLUTICASONE PROPIONATE 50 MCG/ACT 16 GM NASAL SPRAY NASAL SCH (08:57)
[2017-03-07] MEDS: SODIUM CHLORIDE 0.9% FLUSH 10 ML FLUSH IV FLUSH SCH (08:57)
[2017-03-07] MEDS ORDERED: AMIODARONE 200 MG TAB PO SCH (09:00)
[2017-03-07] MEDS ORDERED: AMIO200T PO ×2 (10:06→17:30)
[2017-03-07] MEDS ORDERED: ASPI81CH25 PO (10:11)
[2017-03-07] MEDS ORDERED: CARD180C5 PO (10:11)
[2017-03-07] MEDS ORDERED: SENN1TAB PO (10:11)
--- NOTE | 2017-03-07 10:13 | HHI.PR ---
Subjective Remarks Patient seen and examined today. Feeling good. No further episodes of tachycardia/palpitations. No CP./SOB/fever/NVD. Will dc to home on amiodarone 400mg/cardizem CD 180mg po qday. Follow-up with pcp in1 week. Follow-up with cardiology in 1-2 weeks. Objective Objective Results - Vital Signs Date Time Temp Pulse Resp B/P (MAP) Pulse Ox O2 Delivery O2 Flow Rate FiO2 03/07/17 04:00 Room Air 03/07/17 04:00 97.7 91 16 130/60 (83) 93 03/07/17 00:00 98.0 86 16 119/58 (78) 96 03/07/17 00:00 Room Air 03/06/17 21:15 Room Air 03/06/17 20:22 74 03/06/17 20:00 97.7 78 18 117/58 (77) 96 03/06/17 16:00 98.1 83 20 130/64 (86) 96 03/06/17 12:00 95 Nasal Cannula 03/06/17 11:00 99.0 86 12 123/61 (81) 95 I/O 03/06/17 03/06/17 03/06/17 03/07/17 03/07/17 03/07/17 07:00 15:00 23:00 07:00 15:00 23:00 Intake Total 357 ml 360 ml Output Total 700 ml Balance -343 ml 360 ml Intake Oral 240 ml 360 ml IV Total 117 ml Output Urine Total 700 ml # Voids 8 # Bowel Movements 0 1 2 Result Diagram: 03/04/1751603/04/17516 Physical Exam Physical Exam PHYSICAL EXAMINATION GENERAL: This is a well-developed, well-nourished female who appears to be in no acute distress. She is alert and awake, []. HEAD: Normocephalic without any lesion or mass noted. Facial features appear symmetric. EYES: Perrla, Normal eye movement, [] Icterus. [] Conj congestion. OROPHARYNGEAL: Oropharynx without erythema or edema. MOUTH/THROAT: Tongue midline []. Buccal mucosa is moist []. NECK: Supple. No nuchal rigidity or lymphadenopathy. Trachea midline without deviation. Thyroid not palpable, no bruits appreciated. CARDIAC: Regular rhythm, regular rate, S1 and S2 are heard. Murmur []; no gallops or rubs. LUNGS: Clear to auscultation bilaterally. [] wheeze, [] rhonchi or [] rale. No use of accessory muscles on inspiration or expiration. ABDOMEN: Soft, nontender, no organomegaly or masses. Bowel sounds are heard in all four quadrants. No rebound. No guarding. EXTREMITIES: [] edema. Pulses equal bilateral. [] cyanosis. NEUROLOGICAL: Patient mood and affect appropriate. Cranial nerves II through XII grossly intact. Muscle strength 5/5 in the upper and lower extremities bilaterally. Deep tendon reflexes are 2+ in the upper and lower extremities bilaterally. SKIN:Warm and moist PSYCH: Mood and affect appropriate Ant Mahoney MD Mar 07, 2017 10:13
[2017-03-07 12:00] VITALS: BP 138/63; PULSE 89; RESP 20; TEMP 97.6; O2SAT 95
--- NOTE | 2017-03-07 12:13 | HHI.FF ---
Face to Face Verification Diagnosis: (1) New onset a-fib (2) Myasthenia gravis (3) History of breast cancer Physical Therapy Order: Evaluate and Treat, Improve ambulation, Strength and gait training Home Health Nursing Order: Medical education Signs/symptoms of disease process Medication education-adverse effect I have seen patient Richa Hayes on 03/07/17. My clinical findings support the need for the requested home health care services because: of myasthenia gravis, new onset atrial fibrillation Deconditioned w/ increased weakness Limited ability to care for self High risk of falls I certify that my clinical findings support that this patient is homebound because: of myasthenia gravis/generalized weakness Unsteady gait/balance Poor cardiac reserve Ant Mahoney MD Mar 07, 2017 12:13
[2017-03-07 16:00] VITALS: BP 129/62; PULSE 87; RESP 20; TEMP 98.1; O2SAT 97
--- NOTE | 2017-03-09 08:14 | MD ---
cc: CATHLEEN OCHOA MD ADMISSION DATE: 03/05/2017 DISCHARGE DATE: 03/07/2017 ADMITTING PHYSICIAN: Dr. Ariana Tom. DISCHARGING PHYSICIAN: Dr. Cathleen Ochoa. ADMITTING DIAGNOSIS: 1. Dizziness. 2. Palpitations secondary to atrial fibrillation. 3. Atrial fibrillation new-onset with rapid ventricular rate on admission. 4. Hypothyroidism. 5. Myasthenia gravis. 6. Chronic anemia. 7. Arthritis. DISCHARGE DIAGNOSIS: 1. Atrial fibrillation with rapid ventricular rate on admission. 2. Dizziness. 3. Palpitations secondary to atrial fibrillation. 4. Hypothyroidism. 5. Myasthenia gravis. 6. Chronic anemia. 7. Arthritis. CONSULTS REQUESTED: Cardiology. PROCEDURES DONE: On 03/03/2017, chest x-ray: Cardiomegaly with chronic interstitial changes. On 03/04/2017, 2-D echocardiogram shows an ejection fraction of 55% to 60%, trace mitral regurgitation, severe mitral annular calcification, trace aortic valve regurgitation, no pulmonary valve regurgitation or stenosis. HOSPITAL COURSE: The patient is a very pleasant 81-year-old female who had presented to the emergency room with complaints of intermittent dizziness and palpitations. In the emergency room, she was noted to be in atrial fibrillation with rapid ventricular rate. She was given IV Cardizem and recommended an admission. Cardiology consult was requested. She was continued on IV Cardizem, which was tapered off as her heart rate was improving. She was started on a small dose of IV fluids. Her home medications were continued as appropriate. A 2-D echocardiogram was done on 03/04/2017. The patient was started on IV amiodarone and oral Cardizem by cardiology and she was continuously monitored on telemetry. On 03/06/2017, her IV amiodarone was changed to oral amiodarone and she was continued on Cardizem CD 180 milligrams. On 03/07/2017, the patient was clinically stable. Her blood pressure was 130/60, temperature was 97.7, her pulse was 91. As the patient was clinically stable for discharge after discussing with cardiology she was discharged home in stable condition. DISCHARGE CONDITION: Stable. DISCHARGE DISPOSITION: Home. DISCHARGE MEDICATIONS: Please see the reconciled medication list. DISCHARGE INSTRUCTIONS: 1. Follow up with primary care physician in one week. 2. Follow up with cardiology, Dr. Walters, in two weeks. Cathleen Ochoa MD SR/CRISTOBAL /11:29 AM /8:12 AM
== END 2017-03-07 18:37 | disposition home or self-care (01) | DRG 309 ==
LOC: NEPC 16:32 → UNDOADMIN 18:32 → NEDA 18:32 → INTOOBSV 19:35 → NEDA 19:35 → N04B 21:28 → OBSVTOIN 03-05 13:55
PROVIDERS: ADMIT Specialist; ATTEND Specialist
DX: I48.0 Paroxysmal atrial fibrillation (principal); E87.1 Hypo-osmolality and hyponatremia; G70.00 Myasthenia gravis without (acute) exacerbation; I11.9 Hypertensive heart disease without heart failure; I08.3 Combined rheumatic disorders of mitral, aortic and tricuspid valves; D64.9 Anemia, unspecified; E03.9 Hypothyroidism, unspecified; M19.90 Unspecified osteoarthritis, unspecified site; R74.8 Abnormal levels of other serum enzymes; R42 Dizziness and giddiness; R00.2 Palpitations; Z88.1 Allergy status to other antibiotic agents; Z79.82 Long term (current) use of aspirin; Z85.3 Personal history of malignant neoplasm of breast; Z87.891 Personal history of nicotine dependence
CPT/HCPCS: 71010; 76937; 80048; 80053; 81001; 82550; 83735; 84443; 84484; 85025; 85610; 85730; 93005; 93306; J0282; J1650; J7040; J7060; J7512

== ENCOUNTER 2017-05-29 06:02 | Day surgery (SDC) | payer MEDICARE, OTHER ==
[~2017-05-29 06:02] MED LIST changes: +AMIO200T PO; +ASPI81CH25 PO; -CALC1TAB16 PO; +CARD180C5 PO; +SENN1TAB PO
[2017-05-29] MEDS ORDERED: NS 1000 ML IV SCH (06:15)
[2017-05-29] MEDS ORDERED: MUPIROCIN 2% OINT 1 APPLIC/GM SYR NASAL SCH (06:15)
[2017-05-29] MEDS ORDERED: CHLORHEXIDINE GLUCONATE 2 % 1 PACK (2 CLOTHS) TOPICAL SCH (06:30)
[2017-05-29] MEDS ORDERED: POVIDONE IODINE 5% (ANTISEPSIS KIT) 4 APPLICATIONS EACH NARE SCH (06:30)
[2017-05-29] MEDS ORDERED: ceFAZolin 2 GM PREMIX 50 ML IV SCH (06:30)
[2017-05-29] MEDS ORDERED: FLUT1SPR5 EACH NARE (06:34)
[2017-05-29] MEDS ORDERED: TUMS500C PO (06:34)
--- NOTE | 2017-05-29 09:33 | MA ---
cc: VIGNESH WALTERS MD DATE 05/29/[address] Vignesh Walters PREPROCEDURE DIAGNOSIS Atrial fibrillation with an uncertain burden POSTPROCEDURE DIAGNOSIS Atrial fibrillation with an uncertain burden PROCEDURE PERFORMED Loop recorder insertion DESCRIPTION OF THE PROCEDURE The patient was brought to the DOC unit in the postabsorptive state. After informed consent was obtained, a [employer] LINQ loop recorder was inserted subcutaneously in the left chest. The patient tolerated procedure well without any apparent complications. Tachybrady pause and atrial fibrillation detection was enabled. Initial R-wave was 0.64 mV. The serial number was [id number]. Vignesh Walters MD ARTUR/SKYE /8:15 AM /9:24 AM
== END 2017-05-29 09:20 | disposition home or self-care (01) ==
LOC: HDOC 06:02 → HDIC 06:03 → HDOC 09:20
PROVIDERS: ATTEND Nuclear Medicine Nuclear Cardiology
DX: I48.91 Unspecified atrial fibrillation (principal)
CPT/HCPCS: 33282; C1764; J0690

== ENCOUNTER 2017-07-24 03:11 | Inpatient (IN) | payer MEDICARE, OTHER ==
[2017-07-24] VITALS (27 sets, daily range): BP systolic 95–137; BP diastolic 55–80; PULSE 77–142; RESP 16–22; TEMP 97.2–98.4; O2SAT 93–98
[~2017-07-24] VITALS: Ht 162.6 cm; Wt 51.9 kg
[~2017-07-24 03:11] MED LIST changes: -AMIO200T PO; -ASPI81CH25 PO; -CALC500C16 CHEW; +FLUT1SPR5 EACH NARE; +IVIG10P4 IV; -LISI-519 PO; -MENT4GEL2 TOPICAL; -OMEGCAP PO; -SENN1TAB PO; +TUMS500C PO; -[UNRECOGNIZED DRUG - CODE] IV
[2017-07-24] MEDS ORDERED: DILTIAZEM HCL 25 MG/5 ML VIAL IV ONE ×2 (03:30)
[2017-07-24 03:43] LABS: AUTOMATED NEUTROPHIL # 14.9 TH/MM3 (1.8-7.7); BASOPHIL % 0.2 % (0.0-2.0); HEMATOCRIT 31.9 % (35.0-46.0); HEMOGLOBIN 10.7 GM/DL (11.6-15.3); LYMPH % 1.8 % (9.0-44.0); LYMPHOCYTE # 0.3 TH/MM3 (1.0-4.8); MEAN CORPUSCULAR HEMOGLOBIN 32.9 PG (27.0-34.0); MEAN CORPUSCULAR HGB CONC 33.6 % (32.0-36.0); MEAN PLATELET VOLUME 7.1 FL (7.0-11.0); MONO % 2.4 % (0.0-8.0); MONOCYTE # 0.4 TH/MM3 (0-0.9); NEUT % 95.6 % (16.0-70.0); PLATELET COUNT 199 TH/MM3 (150-450); RED BLOOD COUNT 3.25 MIL/MM3 (4.00-5.30); RED CELL DISTRIBUTION WIDTH 14.2 % (11.6-17.2); WHITE BLOOD COUNT 15.7 TH/MM3 (4.0-11.0)
--- NOTE | 2017-07-24 03:49 | RADRPT ---
EXAM DATE/TIME: 07/24/2017 03:32 [facility] COMPARISON: CHEST SINGLE AP, March 03, 2017, 17:09. INDICATIONS : Shortness of breath. MEDICAL HISTORY : None. SURGICAL HISTORY : IV access port ENCOUNTER: Initial ACUITY: 1 day PAIN SCORE: 0/10 LOCATION: Bilateral chest FINDINGS: A moderate to large pleural effusion has developed on the right, some of which is loculated laterally . There is associated right parenchymal consolidation, mostly the base. Mild patchy air space opacities left lung. No left pleural effusion. No pneumothorax on either side. Lumpectomy changes of the left breast and I believe mastectomy on the right. There is a right subclav minnie [id number] catheter with tip in the superior vena cava. High riding humeral heads with chronic bony remodeling typical of a chronic full-thickness rotator cu ff tears. There is bilateral glenohumeral joint osteoarthritis, moderate to severe on the right and v maryam severe on the left. CONCLUSION: Right greater than left airspace opacities and a moderate to large right pleural effusion, all new. Jose Herman MD on July 24, 2017 at 3:45 Board Certified Radiologist. This report was verified electronically.
[2017-07-24 04:04] LABS: ALT (GPT) 22 U/L (10-53); AST (GOT) 19 U/L (15-37); BICARBONATE 35.7 MEQ/L (21.0-32.0); BLOOD UREA NITROGEN 22 MG/DL (7-18); CALCIUM 9.3 MG/DL (8.5-10.1); CHLORIDE 87 MEQ/L (98-107); CREATININE 0.69 MG/DL (0.50-1.00); GLOMERULAR FILTRATION RATE 81 ML/MIN (>89); GLUCOSE,RANDOM 121 MG/DL (74-106); SODIUM (NA) 129 MEQ/L (136-145)
[2017-07-24 04:09] LABS: ALKALINE PHOSPHATASE 102 U/L (45-117); TOTAL BILIRUBIN ADULT 0.2 MG/DL (0.2-1.0); TOTAL PROTEIN 6.9 GM/DL (6.4-8.2); TROPONIN I 0.05 NG/ML (0.02-0.05)
[2017-07-24] MEDS ORDERED: PIPERACIL-TAZO 3.375 GM PREMIX 50 ML IV ONE (04:45)
[2017-07-24] MEDS ORDERED: VANCOMYCIN INJ 1,000 MG in SODIUM CHLOR 0.9% 250 ML INJ 250 ML IV ONE (04:45)
[2017-07-24] MEDS ORDERED: ACETAMINOPHEN 325 MG TAB PO ONE (05:15)
[2017-07-24] MEDS ORDERED: Vancomycin Consult Pharmacy 1 EA OTHER SCH (05:45)
[2017-07-24] MEDS ORDERED: LACTULOSE SYRUP 20 GM/30 ML CUP PO PRN (05:45)
[2017-07-24] MEDS ORDERED: BISACODYL 10 MG SUPP RECTAL PRN (05:45)
[2017-07-24] MEDS ORDERED: NALOXONE HCL 0.4 MG/ML AMP IV PUSH PRN (05:45)
[2017-07-24] MEDS ORDERED: ONDANSETRON HCL 4 MG/2 ML VIAL IVP PRN (05:45)
[2017-07-24] MEDS ORDERED: MAGNESIUM HYDROXIDE SUSP 30 ML CUP PO PRN (05:45)
[2017-07-24] MEDS ORDERED: SODIUM CHLORIDE 0.9% FLUSH 10 ML FLUSH IV FLUSH PRN (05:45)
[2017-07-24] MEDS ORDERED: SENNOSIDES 8.6 MG TAB PO PRN (05:45)
[2017-07-24] MEDS ORDERED: RESP: ALBUTEROL 2.5 MG/IPRATROPIUM 0.5 MG NEB (PRN) NEB (05:45)
[2017-07-24] MEDS: DILTIAZEM INJ 125 MG in SODIUM CHLORIDE 0.9% INJ 100 ML IV PRN ×2 (05:55→07:17)
[2017-07-24 07:01] LABS: LACTIC ACID SEPSIS PROTOCOL 2.1 mmol/L (0.4-2.0)
[2017-07-24] MEDS ORDERED: HEPARIN SODIUM - SQ 10,000 UNITS/ML VIAL SQ SCH (09:00)
[2017-07-24] MEDS: DOCUSATE SODIUM 50 MG/SENNA 8.6 MG TAB PO SCH ×2 (09:56→20:58)
[2017-07-24] MEDS: SODIUM CHLORIDE 0.9% FLUSH 10 ML FLUSH IV FLUSH SCH ×2 (09:57→20:58)
[2017-07-24] MEDS: PIPERACIL-TAZO 4.5 GM PREMIX 100 ML IV SCH ×2 (11:02→16:53)
[2017-07-24 11:30] LABS: TROPONIN I 0.08 NG/ML (0.02-0.05)
--- NOTE | 2017-07-24 13:37 | HHI.HP ---
[facility] Non-Staff Admission Diagnosis RAPID AFIB Diagnoses: Chief Complaint: SOB Travel History International Travel<30 Days: No Contact w/Intl Traveler <30 Da: No Traveled to Known Affected Are: No History of Present Illness This is an 82-year-old female with history of myasthenia gravis, hypertension, atrial fibrillation, and chronic anemia who presented with shortness of breathing. Patient stated that shortness of breathing happened last night so she went to the emergency department. Patient stated that about 2 weeks ago she has been having a cough so was seen fruit harvester machine operator Dr. Gaston. Patient stated that she had a thoracentesis done about 1-1/2 weeks ago when she had 100 cc of fluid taken out. She also said that she had a PET scan done. Patient stated that she does not know the results. Patient also found wheezing upon exam she said that she had never had any history of wheezing. Denies any history of COPD or asthma. She denies any chest pain, palpitation, lightheadedness or dizziness. Patient's daughter at the bedside during the interview. She is asking for a second opinion with a different fruit harvester machine operator. All other review of system reviewed and negative. Past Family Social History Past Medical History Myasthenia gravis Hypertension Atrial fibrillation Chronic anemia Hypothyroidism Allergic rhinitis Past Surgical History Loop recorder placement Port placement Left lumpectomy secondary to breast cancer Tubal ligation Reported Medications Reported Meds & Active Scripts Active Cardizem CD 24 HR (Diltiazem CD 24 HR) 180 Mg Caper 180 Mg PO DAILY MDD 180 30 Days Reported Privigen Inj (Immune Globulin) 10 % Inj 55 Gm IV EVERY 8 WEEKS Tylenol (Acetaminophen) 325 Mg Tab 650 Mg PO ONCE PRN Diphenhydramine (Diphenhydramine HCl) 25 Mg Cap 25 Mg PO ONCE PRN Flonase Nasal Hamilton (Fluticasone Nasal Hamilton) 50 Mcg/Act Hamilton 50 Mcg EACH NARE BID Tums (Calcium Carbonate (Antacid)) 500 Mg Chew 200 Mg PO DAILY PRN Lubricant Eye Drops Dry Eye Opth (Polyethylene Glycol-Propylene Opth) 0.4-0.3% Drops 1-2 Drop EACH EYE PRN Levothyroxine (Levothyroxine Sodium) 75 Mcg Tab 75 Mcg PO DAILY Prednisone 10 Mg Tab 10 Mg PO DAILY Probiotic (Saccharomyces Boulardii) Unknown Strength Cap Unknown Dose PO DAILY Vitamin B-12 (Cyanocobalamin) Unknown Strength Tab Unknown Dose PO DAILY Allergies: Coded Allergies: ketorolac (Verified Allergy, Severe, 07/20/17) levofloxacin (Unverified Allergy, Intermediate, rash, 07/20/17) Active Ordered Medications Current Medications Diltiazem HCl (Cardizem Inj) 10 mg ONCE ONCE IV Last administered on 07/24/17at 03:28; Start 07/24/17 at 03:30; Stop 07/24/17 at 03:31; Status DC Diltiazem HCl (Cardizem Inj) 10 mg ONCE ONCE IV Last administered on 07/24/17at 04:17; Start 07/24/17 at 03:30; Stop 07/24/17 at 03:31; Status DC Piperacillin Sod/ Tazobactam Sod 50 ml @ 100 mls/hr ONCE ONCE IV Last administered on 07/24/17at 07:27; Start 07/24/17 at 04:45; Stop 07/24/17 at 05:14; Status DC Vancomycin HCl 1000 mg/Sodium Chloride 250 ml @ 250 mls/hr ONCE ONCE IV Last administered on 07/24/17at 05:03; Start 07/24/17 at 04:45; Stop 07/24/17 at 05:44; Status DC Diltiazem HCl 125 mg/Sodium Chloride 125 ml @ 5 mls/hr TITRATE PRN IV Tachycardia Last administered on 07/24/17at 07:17; Start 07/24/17 at 05:00 Acetaminophen (Tylenol) 975 mg ONCE ONCE PO Last administered on 07/24/17at 05: 22; Start 07/24/17 at 05:15; Stop 07/24/17 at 05:16; Status DC Pharmacy Profile Note 0 ml @ 0 mls/hr UNSCH OTHER ; Start 07/24/17 at 05:45 Vancomycin HCl 1250 mg/Sodium Chloride 262.5 ml @ 262.5 mls/ hr Q24H IV ; Start 07/25/17 at 05:00 Piperacillin Sod/ Tazobactam Sod 100 ml @ 200 mls/hr Q6H IV Last administered on 07/24/17at 11:02; Start 07/24/17 at 11:00 Albuterol/ Ipratropium (Duoneb Neb) 1 ampule Q4HR NEB PRN NEB SOB/Wheezing; Start 07/24/17 at 05:45; Stop 07/24/17 at 13:39; Status DC Sodium Chloride (NS Flush) 2 ml UNSCH PRN IV FLUSH FLUSH AFTER USING IV ACCESS ; Start 07/24/17 at 05:45 Sodium Chloride (NS Flush) 2 ml BID IV FLUSH Last administered on 07/24/17at 09: 57; Start 07/24/17 at 09:00 Acetaminophen (Tylenol) 650 mg Q4H PRN PO TEMP > 100.4; Start 07/24/17 at 05:45 Ondansetron HCl (Zofran Inj) 4 mg Q6H PRN IVP NAUSEA OR VOMITING; Start at 05:45 Naloxone HCl (Narcan Inj) 0.4 mg UNSCH PRN IV PUSH SEE LABEL COMMENTS; Start at 05:45 Senna/Docusate Sodium (Connie-Colace) 1 tab BID PO Last administered on 07/24/17at 09:56; Start 07/24/17 at 09:00 Magnesium Hydroxide (Milk Of Magnesia Liq) 30 ml Q12H PRN PO Mild constipation ; Start 07/24/17 at 05:45 Sennosides (Senokot) 17.2 mg Q12H PRN PO Moderate constipation; Start 07/24/17 at 05:45 Bisacodyl (Dulcolax Supp) 10 mg DAILY PRN RECTAL SEVERE CONSITIPATION; Start at 05:45 Lactulose (Lactulose Liq) 30 ml DAILY PRN PO SEVERE CONSITIPATION; Start at 05:45 Heparin Sodium (Porcine) (Heparin Inj) 5,000 units Q12HR SQ Last administered on 07/24/17at 09:57; Start 07/24/17 at 09:00 Miscellaneous Information SPECIFIC LAB TO BE LENA... ONCE ONCE .XX ; Start 07/27 at 04:45; Stop 07/27/17 at 04:46 Metoprolol Tartrate (Lopressor) 25 mg Q12HR PO ; Start 07/24/17 at 13:00 Albuterol/ Ipratropium (Duoneb Neb) 1 ampule Q4HR NEB NEB ; Start 07/24/17 at 16 :00 Methylprednisolone Sodium Succinate (SoluMEDROL INJ) 60 mg Q6HR IV PUSH ; Start 07/24/17 at 13:45; Status UNV Albuterol Sulfate (Albuterol Concentrated Neb) 2.5 mg Q2HR NEB PRN NEB SOB or Wheezing; Start 07/24/17 at 13:45; Status UNV Furosemide (Lasix Inj) 20 mg DAILY IV PUSH ; Start 07/24/17 at 14:00; Status UNV Family History reviewed past family history noncontributory. Social History Denies any alcohol, tobacco, or illicit drug use. Physical Exam Vital Signs Vital Signs Date Time Temp Pulse Resp B/P (MAP) Pulse Ox O2 Delivery O2 Flow Rate FiO2 07/24/17 12:50 97.8 115 22 129/77 (94) 98 Nasal Cannula 2.00 07/24/17 12:16 98 2.00 07/24/17 11:42 115 20 137/70 (92) 98 Nasal Cannula 2.00 07/24/17 11:03 133 20 123/59 (80) 98 Nasal Cannula 2.00 07/24/17 09:58 131 18 95/57 (70) 97 Nasal Cannula 2.00 07/24/17 08:46 22 07/24/17 07:17 108 108/55 07/24/17 07:14 108 22 108/55 (72) 97 Nasal Cannula 2.00 07/24/17 06:27 95 Nasal Cannula 2.00 07/24/17 05:55 132 130/62 07/24/17 05:26 132 16 132/62 (85) Nasal Cannula 2.00 07/24/17 04:20 139 19 96 Nasal Cannula 2.00 07/24/17 04:14 121 16 122/72 (89) 96 Nasal Cannula 2.00 07/24/17 04:02 135 19 104/64 (77) 96 Nasal Cannula 2.00 07/24/17 03:32 126 19 99/56 (70) 95 Nasal Cannula 3.00 07/24/17 03:18 97.9 142 16 131/73 (92) 95 Nasal Cannula 2.00 Physical Exam GENERAL: This is a well-nourished, well-developed patient, in no apparent distress. SKIN: No rashes, ecchymoses or lesions. Cool and dry. HEAD: Atraumatic. Normocephalic. No temporal or scalp tenderness. EYES: Pupils equal round and reactive. Extraocular motions intact. No scleral icterus. No injection or drainage. ENT: Nose without bleeding, purulent drainage or septal hematoma. Throat without erythema, tonsillar hypertrophy or exudate. Uvula midline. Airway patent. NECK: Trachea midline. No JVD or lymphadenopathy. Supple, nontender, no meningeal signs. CARDIOVASCULAR: Irregular rate and irregular rhythm without murmurs, gallops, or rubs. RESPIRATORY: Diffuse bilateral expiratory wheezing. Decreased breath sounds right side of the lungs. GASTROINTESTINAL: Abdomen soft, non-tender, nondistended. No hepato-splenomegaly , or palpable masses. No guarding. MUSCULOSKELETAL: Extremities without clubbing, cyanosis, or edema. No joint tenderness, effusion, or edema noted. No calf tenderness. Negative Homans sign bilaterally. NEUROLOGICAL: Awake and alert. Cranial nerves II through XII intact. Motor and sensory grossly within normal limits. Five out of 5 muscle strength in all muscle groups. Normal speech. Laboratory Laboratory Tests Test 07/24/17 03:22 07/24/17 06:03 07/24/17 10:15 White Blood Count 15.7 Red Blood Count 3.25 Hemoglobin 10.7 Hematocrit 31.9 Mean Corpuscular Volume 98.0 Mean Corpuscular Hemoglobin 32.9 Mean Corpuscular Hemoglobin Concent 33.6 Red Cell Distribution Width 14.2 Platelet Count 199 Mean Platelet Volume 7.1 Neutrophils (%) (Auto) 95.6 Lymphocytes (%) (Auto) 1.8 Monocytes (%) (Auto) 2.4 Eosinophils (%) (Auto) 0.0 Basophils (%) (Auto) 0.2 Neutrophils # (Auto) 14.9 Lymphocytes # (Auto) 0.3 Monocytes # (Auto) 0.4 Eosinophils # (Auto) 0.0 Basophils # (Auto) 0.0 CBC Comment DIFF FINAL Differential Comment Blood Urea Nitrogen 22 Creatinine 0.69 Random Glucose 121 Total Protein 6.9 Albumin 2.0 Calcium Level 9.3 Alkaline Phosphatase 102 Aspartate Amino Transf (AST/SGOT) 19 Alanine Aminotransferase (ALT/SGPT) 22 Total Bilirubin 0.2 Sodium Level 129 Potassium Level 3.7 Chloride Level 87 Carbon Dioxide Level 35.7 Anion Gap 6 Estimat Glomerular Filtration Rate 81 Total Creatine Kinase 22 38 Troponin I 0.05 0.08 B-Type Natriuretic Peptide 422 Lipase 85 Lactic Acid Level 2.1 2.6 Date/Time Source Procedure Growth Status 07/24/17 06:05 Blood Peripheral Aerobic Blood Culture Pending Received 07/24/17 06:05 Blood Peripheral Anaerobic Blood Culture Pending Received Result Diagram: 07/24/17 0322 07/24/17 0322 Imaging Last Impressions Chest X-Ray 07/24/17314 Signed Impressions: Service Date/Time: Monday, July 24, 2017 03:32 - CONCLUSION: Right greater than left airspace opacities and a moderate to large right pleural effusion, all new. MD Debbie Cameron VTE Risk Assessment Debbie VTE Risk Assessment: Mod/High Risk (score >= 2) Caprini Risk Assessment Model Point Value = 1 Point Value = 2 Point Value = 3 Point Value = 5 Age 41-60 Minor surgery BMI > 25 kg/m2 Swollen legs Varicose veins or History of unexplained or recurrent spontaneous Oral contraceptives or hormone replacement Sepsis (< 1 month) Serious lung disease, including pneumonia (< 1 month) Abnormal pulmonary function Acute myocardial infarction Congestive heart failure (< 1 month) History of inflammatory bowel disease Medical patient at bed rest Age 61-74 Arthroscopic surgery Major open surgery (> 45 min) Laparoscopic surgery (> 45 min) Malignancy Confined to bed (> 72 hours) Immobilizing plaster cast Central venous access Age >= 75 History of VTE Family history of VTE Factor V Leiden Prothrombin [id number] Lupus anticoagulant Anticardiolipin antibodies Elevated serum homocysteine Heparin-induced thrombocytopenia Other congenital or acquired thrombophilia Stroke (< 1 month) Elective arthroplasty Hip, pelvis, or leg fracture Acute spinal cord injury (< 1 month) Prophylaxis Regimen Total Risk Factor Score Risk Level Prophylaxis Regimen 0-1 Low Early ambulation 2 Moderate Order ONE of the following: *Sequential Compression Device (SCD) *Heparin 5000 units SQ BID 3-4 Higher Order ONE of the following medications: *Heparin 5000 units SQ TID *Enoxaparin/Lovenox 40 mg SQ daily (WT < 150 kg, CrCl > 30 mL/min) *Enoxaparin/Lovenox 30 mg SQ daily (WT < 150 kg, CrCl > 10-29 mL/min) *Enoxaparin/Lovenox 30 mg SQ BID (WT < 150 kg, CrCl > 30 mL/min) AND/OR *Sequential Compression Device (SCD) 5 or more Highest Order ONE of the following medications: *Heparin 5000 units SQ TID (Preferred with Epidurals) *Enoxaparin/Lovenox 40 mg SQ daily (WT < 150 kg, CrCl > 30 mL/min) *Enoxaparin/Lovenox 30 mg SQ daily (WT < 150 kg, CrCl > 10-29 mL/min) *Enoxaparin/Lovenox 30 mg SQ BID (WT < 150 kg, CrCl > 30 mL/min) AND *Sequential Compression Device (SCD) Assessment and Plan Assessment and Plan This is an 82-year-old female with myasthenia gravis and atrial fibrillation who presented with shortness of breathing Dyspnea -Labs significant for leukocytosis. Imaging significant for chest x-ray with left-sided consolidation and pleural effusion. EKG shows atrial fibrillation with RVR. Heart rate in the 130s. See treatment as below. Atrial fibrillation with RVR -Patient currently on IV Cardizem drip at 15 heart rate continues to be elevated in the 130s. Rn Hedis consulted and managing. Management per slope hoist operator. -We will place an echo. Pneumonia/pleural effusion -Chest x-ray shows bilateral opacities right greater than left with moderate to large amount of right pleural effusion. -Patient was being worked up by Dr. Gaston as outpatient. She had thoracentesis and a PET scan done and does not know the results. Patient asking for a second opinion from a different fruit harvester machine operator. -Patient given Zosyn and vancomycin in the ED. We will continue with vancomycin and Zosyn. Will have pharmacist manage vancomycin. -This may be due to an underlying malignancy. We will also request medical records from her fruit harvester machine operator. Reactive airway disease -Patient has diffuse wheezing. She has no history of COPD or asthma. Patient has no history of smoking tobacco. -We will schedule duo nebs every 4 hours, as needed albuterol, schedule Solu- Medrol 60 mg IV every 6 hours. Continue to supplement with oxygen. -Later she will need a pulmonary function test. Mild hyponatremia sodium 129. -Asymptomatic. Most likely secondary to atrial fibrillation with RVR. -Continue to monitor. Once heart rate improves this should improve. Mildly elevated troponin -Troponin 0 0.05 now 0.08. Most likely secondary to age of atrial fibrillation with RVR causing demand ischemia. Hypothyroidism/hypertension/GERD -Continue with home medication. DVT prophylaxis -Heparin Code Status discussed code status with patient and her daughter at the bedside. patient stated she does not want to be intubated. She stated she wants to be a DNI. She is okay with chest compression, shock and medication. she stated her daughter in law will bring her living will. Discussed Condition With patient, her nurse, Dr. Murphy, and patient's daughter Physician Certification 2 Midnight Certification Type: Admission for Inpatient Services Order for Inpatient Services The services are ordered in accordance with Medicare regulations or non- Medicare payer requirements, as applicable. In the case of services not specified as inpatient-only, they are appropriately provided as inpatient services in accordance with the 2-midnight benchmark. Estimated LOS (days): 5 5 days is the estimated time the patient will need to remain in the hospital, assuming treatment plan goals are met and no additional complications. Post-Hospital Plan: SNF Tatiana Le MD Jul 24, 2017 13:37
[2017-07-24] MEDS: FUROSEMIDE 20 MG/2 ML VIAL IV PUSH SCH (14:28)
[2017-07-24] MEDS: METOPROLOL TARTRATE 25 MG TAB PO SCH ×2 (14:28→20:58)
[2017-07-24] MEDS: methylPREDNISolone SOD SUCC 125 MG/2 ML VIAL IV PUSH SCH ×2 (14:28→20:59)
[2017-07-24] MEDS: RESP: ALBUTEROL 2.5 MG/IPRATROPIUM 0.5 MG NEB (SCH) NEB ×3 (17:00→23:14)
--- NOTE | 2017-07-24 17:14 | MB ---
cc: Katlyn Potts MD, [place] W MD DATE OF CONSULT: 07/24/2017 REASON FOR CONSULTATION: Pleural effusion. HISTORY OF PRESENT ILLNESS: Mrs. Hayes is an 82-year-old female admitted with increasing shortness of breath, chest x-ray with bilateral pleural effusions more so on the right. She had a previous thoracentesis about 10 day ago in [place] and tells me 800 mL of fluid was aspirated. The patient was being evaluated by further imaging studies including a PET scan which she had had. The patient, however, is not aware of her diagnosis to explain her recurrent pleural effusion. PAST MEDICAL HISTORY: Myasthenia gravis, atrial fibrillation, hypothyroidism, hypertension as well as allergic rhinitis. She did have previous lumpectomy for breast cancer. SOCIAL HISTORY: She does not smoke, does not drink. No TB, no industrial exposure. FAMILY HISTORY: Noncontributory. ALLERGIES: CARDIZEM, KETOROLAC, LEVOFLOXACIN. MEDICATIONS: At present include diltiazem, Tylenol, albuterol, piperacillin, vancomycin. REVIEW OF SYSTEMS: A 12-point review of systems as per HPI and past history otherwise negative. PHYSICAL EXAMINATION: GENERAL: The patient is alert on oxygen by nasal cannula. VITAL SIGNS: Pulse 100, respiration 18, blood pressure 120/80, oxygen saturation 98% on 2 liters oxygen nasal cannula. HEENT: Unremarkable. Eyes without icterus. NECK: Without adenopathy or thyroid enlargement. Trachea is central. CHEST: Decreased breath sounds at both lung bases. CARDIAC: Irregularity noted. ABDOMEN: Lax, bowel sounds audible. EXTREMITIES: Trace edema. LABORATORY DATA: White count 16.7, hemoglobin 10, hematocrit 31, platelets 199,000. Sodium 129, potassium 3.7, BUN 22, creatinine 0.69. IMAGING STUDIES: Chest x-ray: Bilateral effusions, more so on the right. IMPRESSION: 1. Bilateral pleural effusion. 2. Atrial fibrillation. 3. Hypothyroidism. 4. Hypertension. 5. Myasthenia gravis. 6. Chronic anemia. PLAN: The patient has bilateral pleural effusions. No clear etiology is known. Apparently, workup has been initiated prior to her admission. She does have history of breast cancer, which is a diagnosis of exclusion. The results of previous thoracentesis are not available nor are the results of the PET scan. An attempt should be made to obtain both to avoid repetition. Meanwhile, proceed with a right thoracentesis for both diagnostic and therapeutic objective. This has been discussed and explained to the patient and she is agreeable to proceed. I do thank you for asking me to partake in Mrs. Hayes's care. MD MALINDA Palomo//angelo , 04:03 PM , 05:05 PM
[2017-07-24 18:28] LABS: PROTHROMBIN TIME - PATIENT 10.1 SEC (9.8-11.6)
[2017-07-24 18:44] LABS: TROPONIN I 0.08 NG/ML (0.02-0.05)
[2017-07-24] MEDS: HEPARIN SODIUM - SQ 10,000 UNITS/ML VIAL SQ SCH (20:58)
--- NOTE | 2017-07-24 23:54 | MB ---
cc: Luca Murphy DO DATE OF CONSULT: 07/24/2017 REASON FOR CONSULTATION: Atrial fibrillation with rapid ventricular response. HISTORY OF PRESENT ILLNESS: Richa Hayes is a pleasant 82-year-old female who presented to [facility] Emergency Room on 07/24/2017 due to shortness of breath. Apparently she has had significant shortness of breath over the past few weeks. She saw her novelty printing machine operator Dr. López around 2 weeks ago and had a thoracentesis done for which she said they took out 800 mL of fluid and then had a PET scan done. Family as well as the patient do not know the results of this testing yet. She continues to be short of breath and so she came into the emergency room. In seeing her she is significantly shortness of breath on nasal cannula 8 liters of oxygen. She denies any chest pain, palpitations, light-headedness or dizziness. PAST MEDICAL HISTORY: 1. Myasthenia gravis. 2. Hypertension . 3. Atrial fibrillation. 4. Chronic anemia. 5. Hypothyroidism. 6. Allergic rhinitis. PAST SURGICAL HISTORY: 1. Loop recorder placement. 2. Port placement. 3. Left lumpectomy secondary to breast cancer. 4. Tubal ligation. 5. Recent thoracentesis. ALLERGIES: 1. KETOROLAC. 2. LEVOFLOXACIN. MEDICATIONS: 1. Benadryl 25 mg as needed for IVIg infusion. 2. Cardizem 180 mg daily. 3. Tylenol 650 mg as needed for IVIg infusion. 4. Flonase 50 mcg b.i.d. 5. Probiotic daily. 6. Prednisone 10 mg daily. 7. Synthroid 75 mcg daily. 8. Immunoglobin 55 gm every week. FAMILY HISTORY: Denies premature coronary artery disease or sudden cardiac within the family. SOCIAL HISTORY: Denies alcohol, tobacco or drug abuse. REVIEW OF SYSTEMS: Fourteen systems were reviewed including osteopathic including positive and negatives above, otherwise negative. PHYSICAL EXAMINATION: VITAL SIGNS: Temperature 97.8, heart rate 115, blood pressure 129/77, respirations 22, pulse ox 98% on 8 liters. GENERAL: The patient appears in mild distress due to shortness of breath. HEENT: Extraocular muscles intact. Mucous membranes are moist. NECK: Supple, no JVD at 45 degrees, no carotid bruits heard bilaterally. Carotid upstroke is brisk in nature. HEART: Irregularly irregular, positive first and second heart sounds with no noted murmurs, rubs or gallops. LUNGS: Decreased breath sounds bilaterally with expiratory wheezes noted. ABDOMEN: Soft, nontender, nondistended, no organomegaly noted. EXTREMITIES: Show no clubbing, cyanosis or edema. Femoral and distal pulses intact bilaterally. NEUROLOGIC: No focal deficits. SKIN: Warm, dry and intact. OSTEOPATHIC: No kyphoscoliosis, lordosis or paraspinal tender points. LABORATORY DATA: Hemoglobin 10.7, hematocrit 31.9, platelets 199. BUN 22, creatinine 0.69. Troponin 0.08. Electrocardiogram (07/24/2017 at 1429) atrial fibrillation with rapid ventricular response, incomplete right bundle branch block, non-specific ST-T wave changes. IMPRESSION: 1. Shortness of breath. 2. Atrial fibrillation with rapid ventricular response. 3. Pleural effusion. 4. Mild hyponatremia. 5. Minimally elevated troponin. 6. Hypertension . 7. Chronic anemia. RECOMMENDATIONS: 1. Ms. Hayes appears to have atrial fibrillation with rapid ventricular response. She has been started on a Cardizem drip and is at 10 mg per hour and this will be increased to 15 to further control her heart rate. 2. Her overall shortness of breath is most likely secondary to her atrial fibrillation with rapid ventricular response as well as a pleural effusion. Pleural effusion may be recurrent or due to the atrial fibrillation with rapid ventricular response. 3. She will be seen by pulmonology and most likely need repeat thoracentesis. 4. She underwent a PET scan and review of the report shows a large loculated pleural effusion with pleural uptake highly suspicious for pleural based metastatic disease as well as mediastinal adenopathy, highly suspicious for metastatic disease, a right lung base parenchymal opacity is mass like essentially consolidated collapsed lung, however underlying malignancy in this location should be entertained. She will be further evaluated by pulmonology for considerations of thoracentesis so that pleural effusion can be evaluated for malignant cells. 5. We will check a 2D echo to look at her overall left ventricular function, cardiac structure and possible valvulopathies. 6. She does have a mildly elevated troponin but I believe that this is due to her overall illness including her atrial fibrillation with rapid ventricular response as well as her significant shortness of breath. 7. As far as anticoagulation goes, this will be held off at this time due to the need for most likely a thoracentesis. This can be reevaluated later in the hospital course or as an outpatient. Thank you for allowing me to see Richa Hayes. If there are any questions please due not hesitate to call. Luca Murphy DO VGP/rt , 11:18 PM , 11:52 PM
[2017-07-25] VITALS (27 sets, daily range): BP systolic 101–129; BP diastolic 33–77; PULSE 63–114; RESP 18; TEMP 96.7–98.8; O2SAT 94–99
--- NOTE | 2017-07-25 01:03 | RADRPT ---
EXAM DATE/TIME: 07/25/2017 00:38 [place] COMPARISON: No previous studies available for comparison. INDICATIONS : Respiratory failure. MEDICAL HISTORY : None. SURGICAL HISTORY : IV access port ENCOUNTER: Subsequent ACUITY: 2 days PAIN SCORE: 0/10 LOCATION: Bilateral chest FINDINGS: Worsening consolidation and pleural effusion on the right, right hemithorax now completely opacified. Mild consolidation of the left mid and lower lung is slightly worse in the interim. No pneumothorax seen. Heart size stable, within normal limits. Right subclavian [id number] cathete r again seen with tip in the superior vena cava. CONCLUSION: There is essentially complete opacification of the right hemithorax currently related to worsening co nsolidation and effusion. Jose Herman MD on July 25, 2017 at 1:00 Board Certified Radiologist. This report was verified electronically.
[2017-07-25] MEDS: PIPERACIL-TAZO 4.5 GM PREMIX 100 ML IV SCH ×5 (01:26→22:40)
[2017-07-25] MEDS: DILTIAZEM HCL 90 MG TAB PO SCH ×4 (01:26→18:47)
[2017-07-25] MEDS: DILTIAZEM INJ 125 MG in SODIUM CHLORIDE 0.9% INJ 100 ML IV PRN (01:27)
[2017-07-25] MEDS: methylPREDNISolone SOD SUCC 125 MG/2 ML VIAL IV PUSH SCH ×4 (01:50→22:40)
[2017-07-25] MEDS: RESP: ALBUTEROL 2.5 MG/IPRATROPIUM 0.5 MG NEB (SCH) NEB ×6 (02:47→23:25)
[2017-07-25] MEDS: HEPARIN SODIUM - SQ 10,000 UNITS/ML VIAL SQ SCH ×3 (05:12→22:00)
[2017-07-25] MEDS: VANCOMYCIN INJ 1,250 MG in SODIUM CHLOR 0.9% 250 ML INJ 250 ML IV SCH (05:13)
[2017-07-25 06:54] LABS: AUTOMATED NEUTROPHIL # 10.5 TH/MM3 (1.8-7.7); HEMATOCRIT 30.4 % (35.0-46.0); HEMOGLOBIN 10.5 GM/DL (11.6-15.3); LYMPH % 1.5 % (9.0-44.0); LYMPHOCYTE # 0.2 TH/MM3 (1.0-4.8); MEAN CELL VOLUME 98.2 FL (80.0-100.0); MEAN CORPUSCULAR HEMOGLOBIN 33.7 PG (27.0-34.0); MEAN CORPUSCULAR HGB CONC 34.4 % (32.0-36.0); MEAN PLATELET VOLUME 7.4 FL (7.0-11.0); MONO % 1.1 % (0.0-8.0); MONOCYTE # 0.1 TH/MM3 (0-0.9); NEUT % 97.4 % (16.0-70.0); PLATELET COUNT 179 TH/MM3 (150-450); RED CELL DISTRIBUTION WIDTH 14.2 % (11.6-17.2); WHITE BLOOD COUNT 10.8 TH/MM3 (4.0-11.0)
[2017-07-25 07:08] LABS: BICARBONATE 38.3 MEQ/L (21.0-32.0); CALCIUM 9.3 MG/DL (8.5-10.1); CREATININE 0.62 MG/DL (0.50-1.00)
--- NOTE | 2017-07-25 08:53 | HHI.PR ---
Subjective Remarks This is an 82-year-old female with history of myasthenia gravis, hypertension, atrial fibrillation, and chronic anemia who presented with shortness of breathing. Patient stated that shortness of breathing happened last night so she went to the emergency department. Patient stated that about 2 weeks ago she has been having a cough so was seen content publisher Dr. Gaston. Patient stated that she had a thoracentesis done about 1-1/2 weeks ago when she had 100 cc of fluid taken out. She also said that she had a PET scan done. Patient stated that she does not know the results. Patient also found wheezing upon exam she said that she had never had any history of wheezing. Denies any history of COPD or asthma. She denies any chest pain, palpitation, lightheadedness or dizziness. Seen in her bedroom in the presence of her Daughter, she has Respiratory insufficiency, followed by logistics specialist, recommended to continue Bronchodilator Steroids, awaiting for Right ultrasound guided thoracentesis, to continue Zosyn and Vancomycin. Lasix. Echocardiogram from February 2017 showed EF 55 to 60%. Objective Vital Signs Date Time Temp Pulse Resp B/P (MAP) Pulse Ox O2 Delivery O2 Flow Rate FiO2 07/25/17 06:00 66 07/25/17 05:00 64 07/25/17 04:00 95 40 07/25/17 04:00 92 07/25/17 03:00 98.0 98 117/76 (90) 99 07/25/17 03:00 90 07/25/17 02:00 84 07/25/17 01:27 101/69 07/25/17 01:00 96 07/25/17 00:45 95 40 07/25/17 00:00 114 07/25/17 00:00 97.6 72 101/69 (80) 97 07/24/17 23:00 110 07/24/17 22:00 84 07/24/17 21:00 98 07/24/17 20:50 98 Simple Mask 8.00 07/24/17 20:00 82 07/24/17 20:00 97.2 77 117/69 (85) 93 07/24/17 19:00 80 07/24/17 18:00 94 07/24/17 17:10 94 Simple Mask 9.00 07/24/17 17:00 102 07/24/17 16:00 83 07/24/17 15:00 97.9 79 20 118/64 (82) 98 07/24/17 15:00 98 07/24/17 14:20 95 Simple Mask 10.00 07/24/17 14:00 87 07/24/17 14:00 130 118/64 07/24/17 13:35 98.4 120 22 124/80 (95) 98 07/24/17 13:35 130 07/24/17 12:50 97.8 115 22 129/77 (94) 98 Nasal Cannula 2.00 07/24/17 12:16 98 2.00 07/24/17 11:42 115 20 137/70 (92) 98 Nasal Cannula 2.00 07/24/17 11:03 133 20 123/59 (80) 98 Nasal Cannula 2.00 07/24/17 09:58 131 18 95/57 (70) 97 Nasal Cannula 2.00 I/O 07/24/17 07/24/17 07/24/17 07/25/17 07/25/17 07/25/17 07:00 15:00 23:00 07:00 15:00 23:00 Intake Total 400 ml 580 ml 240 ml Output Total 400 ml 350 ml Balance 400 ml 180 ml -110 ml Intake Oral 480 ml 240 ml IV Total 400 ml 100 ml Output Urine Total 400 ml 350 ml Bladder Scan Volume Amount 296 ml # Voids 2 # Bowel Movements 0 Result Diagram: 07/25/17 0530 07/25/17 0530 Imaging Last Impressions Chest X-Ray 07/25/17 0032 Signed Impressions: Service Date/Time: Tuesday, July 25, 2017 00:38 - CONCLUSION: There is essentially complete opacification of the right hemithorax currently related to worsening consolidation and effusion. Jose Herman MD Procedures None Other Results Laboratory Tests Test 07/24/17 03:22 07/24/17 10:15 07/24/17 18:00 07/25/17 00:28 Blood Urea Nitrogen 22 MG/DL Creatinine 0.69 MG/DL Random Glucose 121 MG/DL Total Protein 6.9 GM/DL Albumin 2.0 GM/DL Calcium Level 9.3 MG/DL Alkaline Phosphatase 102 U/L Aspartate Amino Transf (AST/SGOT) 19 U/L Alanine Aminotransferase (ALT/SGPT) 22 U/L Total Bilirubin 0.2 MG/DL Sodium Level 129 MEQ/L Potassium Level 3.7 MEQ/L Chloride Level 87 MEQ/L Carbon Dioxide Level 35.7 MEQ/L B-Type Natriuretic Peptide 422 PG/ML Lipase 85 U/L Lactic Acid Level 2.6 mmol/L Prothrombin Time 10.1 SEC Prothromb Time International Ratio 1.0 RATIO Activated Partial Thromboplast Time 25.4 SEC Total Creatine Kinase 40 U/L Troponin I 0.08 NG/ML Thyroid Stimulating Hormone 3rd Gen 2.420 uIU/ML Blood Gas Puncture Site RT RADIAL Blood Gas Patient Temperature 98.6 Blood Gas HCO3 38 mmol/L Blood Gas Base Excess 12.9 mmol/L Blood Gas Oxygen Saturation 90 % Arterial Blood pH 7.41 Arterial Blood Partial Pressure CO2 62 mmHg Arterial Blood Partial Pressure O2 68 mmHg Arterial Blood Oxygen Content 14.5 Vol % Arterial Blood Carboxyhemoglobin 0.9 % Arterial Blood Methemoglobin 1.1 % Blood Gas Hemoglobin 11.4 G/DL Oxygen Delivery Device NRB MASK Blood Gas Liter Flow 15 L/M Test 07/25/17 05:30 White Blood Count 10.8 TH/MM3 Red Blood Count 3.10 MIL/MM3 Hemoglobin 10.5 GM/DL Hematocrit 30.4 % Mean Corpuscular Volume 98.2 FL Mean Corpuscular Hemoglobin 33.7 PG Mean Corpuscular Hemoglobin Concent 34.4 % Red Cell Distribution Width 14.2 % Platelet Count 179 TH/MM3 Mean Platelet Volume 7.4 FL Neutrophils (%) (Auto) 97.4 % Lymphocytes (%) (Auto) 1.5 % Monocytes (%) (Auto) 1.1 % Eosinophils (%) (Auto) 0.0 % Basophils (%) (Auto) 0.0 % Neutrophils # (Auto) 10.5 TH/MM3 Lymphocytes # (Auto) 0.2 TH/MM3 Monocytes # (Auto) 0.1 TH/MM3 Eosinophils # (Auto) 0.0 TH/MM3 Basophils # (Auto) 0.0 TH/MM3 CBC Comment DIFF FINAL Differential Comment Blood Urea Nitrogen 20 MG/DL Creatinine 0.62 MG/DL Random Glucose 124 MG/DL Calcium Level 9.3 MG/DL Sodium Level 128 MEQ/L Potassium Level 3.3 MEQ/L Chloride Level 82 MEQ/L Carbon Dioxide Level 38.3 MEQ/L Anion Gap 8 MEQ/L Estimat Glomerular Filtration Rate 92 ML/MIN Objective Remarks GENERAL: This is a well-nourished, well-developed patient, in no apparent distress. SKIN: No rashes, ecchymoses or lesions. Cool and dry. HEAD: Atraumatic. Normocephalic. No temporal or scalp tenderness. EYES: Pupils equal round and reactive. Extraocular motions intact. No scleral icterus. No injection or drainage. NECK: Trachea midline. No JVD or lymphadenopathy. Supple CARDIOVASCULAR: Irregular rate and irregular rhythm without murmurs RESPIRATORY: Decreased breath sounds bilateral, No wheezing or crackles. GASTROINTESTINAL: Abdomen soft, non-tender, nondistended. MUSCULOSKELETAL: Extremities without clubbing, cyanosis, or edema. NEUROLOGICAL: Awake and alert. No focal deficits. Medications and IVs Current Medications Medications (Trade) Dose Ordered Sig/Naldo Route Start Time Stop Time Status Last Admin Pharmacy Profile Note 0 ml @ 0 mls/hr UNSCH OTHER 07/24/17 05:45 Vancomycin HCl 1250 mg/Sodium Chloride 262.5 ml @ 262.5 mls/ hr Q24H IV 07/25/17 05:00 07/25/17 05:13 Piperacillin Sod/ Tazobactam Sod 100 ml @ 200 mls/hr Q6H IV 07/24/17 11:00 07/25/17 05:13 (NS Flush) 2 ml UNSCH PRN IV FLUSH 07/24/17 05:45 (NS Flush) 2 ml BID IV FLUSH 07/24/17 09:00 07/24/17 20:58 (Tylenol) 650 mg Q4H PRN PO 07/24/17 05:45 (Zofran Inj) 4 mg Q6H PRN IVP 07/24/17 05:45 (Narcan Inj) 0.4 mg UNSCH PRN IV PUSH 07/24/17 05:45 (Connie-Colace) 1 tab BID PO 07/24/17 09:00 07/24/17 20:58 (Milk Of Magnesia Liq) 30 ml Q12H PRN PO 07/24/17 05:45 (Senokot) 17.2 mg Q12H PRN PO 07/24/17 05:45 (Dulcolax Supp) 10 mg DAILY PRN RECTAL 07/24/17 05:45 (Lactulose Liq) 30 ml DAILY PRN PO 07/24/17 05:45 Miscellaneous Information SPECIFIC LAB TO BE ... ONCE ONCE .XX 07/27/17 04:45 07/27/17 04:46 (Lopressor) 25 mg Q12HR PO 07/24/17 13:00 07/24/17 20:58 (Duoneb Neb) 1 ampule Q4HR NEB NEB 07/24/17 16:00 07/25/17 02:47 (SoluMEDROL INJ) 60 mg Q6H IV PUSH 07/24/17 14:00 07/25/17 01:50 (Albuterol Concentrated Neb) 2.5 mg Q2HR NEB PRN NEB 07/24/17 13:45 (Lasix Inj) 20 mg DAILY IV PUSH 07/24/17 14:00 07/24/17 14:28 (Heparin Inj) 5,000 units Q8HR SQ 07/24/17 22:00 07/25/17 05:12 (Cardizem) 90 mg Q6HR PO 07/25/17 00:00 07/25/17 05:12 A/P Assessment and Plan This is an 82-year-old female with myasthenia gravis and atrial fibrillation who presented with shortness of breathing Pneumonia -Labs significant for leukocytosis. Imaging significant for chest x-ray with left-sided consolidation and pleural effusion. continue Vancomycin and Zosyn. continue Steroids. bronchodilators. logistics specialist following. Atrial fibrillation with RVR -Patient currently on IV Cardizem drip at 15 heart rate continues to be elevated in the 130s. [facility] consulted and managing. Management per backside grinder. -Echocardiogram showed EF 55-60%. -Chest x-ray shows bilateral opacities right greater than left with moderate to large amount of right pleural effusion. -Patient was being worked up by Dr. Gaston as outpatient. She had thoracentesis and a PET scan done and does not know the results. Patient asking for a second opinion from a different content publisher. -Patient given Zosyn and vancomycin in the ED. We will continue with vancomycin and Zosyn. Will have pharmacist manage vancomycin. -Questioned probable malignancy, as per Cardiology do not know why the patient is off anticoagulation will get information from the office. Reactive airway disease -Patient has diffuse wheezing. She has no history of COPD or asthma. Patient has no history of smoking tobacco. -We will schedule duo nebs every 4 hours, as needed albuterol, schedule Solu- Medrol 60 mg IV every 6 hours. Continue to supplement with oxygen. -Later she will need a pulmonary function test. Pleural effusion will go for Right thoracentesis later today. electrolyte derangement replacing. Mildly elevated troponin -Troponin 0 0.05 now 0.08. Most likely secondary to age of atrial fibrillation with RVR causing demand ischemia. Hypothyroidism/hypertension/GERD -Continue with home medication. DVT prophylaxis -Heparin Code Status discussed code status with patient and her daughter at the bedside. patient stated she does not want to be intubated. She stated she wants to be a DNI. She is okay with chest compression, shock and medication. she stated her daughter in law will bring her living will. Discussed Condition With patient, his Daughter and Nurse Chase Weinstein. Discharge Planning Once cleared by Cardiology and Pulmonary specialists. Froy Hart MD Jul 25, 2017 08:53
[2017-07-25] MEDS: METOPROLOL TARTRATE 25 MG TAB PO SCH ×2 (09:36→21:00)
[2017-07-25] MEDS: DOCUSATE SODIUM 50 MG/SENNA 8.6 MG TAB PO SCH ×2 (09:36→21:00)
[2017-07-25] MEDS: SODIUM CHLORIDE 0.9% FLUSH 10 ML FLUSH IV FLUSH SCH ×2 (09:38→22:39)
--- NOTE | 2017-07-25 10:08 | HHI.PR ---
Subjective Remarks Patient is on 6L oxygen with sats 97%. For thoracentesis today. Afebrile. Looks comfortable. Objective Vital Signs Vital Signs Date Time Temp Pulse Resp B/P (MAP) Pulse Ox O2 Delivery O2 Flow Rate FiO2 07/25/17 09:13 97 Nasal Cannula 6.00 07/25/17 06:00 66 07/25/17 05:00 64 07/25/17 04:00 95 40 07/25/17 04:00 92 07/25/17 03:00 98.0 98 117/76 (90) 99 07/25/17 03:00 90 07/25/17 02:00 84 07/25/17 01:27 101/69 07/25/17 01:00 96 07/25/17 00:45 95 40 07/25/17 00:00 114 07/25/17 00:00 97.6 72 101/69 (80) 97 07/24/17 23:00 110 07/24/17 22:00 84 07/24/17 21:00 98 07/24/17 20:50 98 Simple Mask 8.00 07/24/17 20:00 82 07/24/17 20:00 97.2 77 117/69 (85) 93 07/24/17 19:00 80 07/24/17 18:00 94 07/24/17 17:10 94 Simple Mask 9.00 07/24/17 17:00 102 07/24/17 16:00 83 07/24/17 15:00 97.9 79 20 118/64 (82) 98 07/24/17 15:00 98 07/24/17 14:20 95 Simple Mask 10.00 07/24/17 14:00 87 07/24/17 14:00 130 118/64 07/24/17 13:35 98.4 120 22 124/80 (95) 98 07/24/17 13:35 130 07/24/17 12:50 97.8 115 22 129/77 (94) 98 Nasal Cannula 2.00 07/24/17 12:16 98 2.00 07/24/17 11:42 115 20 137/70 (92) 98 Nasal Cannula 2.00 07/24/17 11:03 133 20 123/59 (80) 98 Nasal Cannula 2.00 I/O 3/9/07/24/17 07/24/17 07/25/17 07/25/17 07/25/17 07:00 15:00 23:00 07:00 15:00 23:00 Intake Total 400 ml 580 ml 240 ml Output Total 400 ml 350 ml Balance 400 ml 180 ml -110 ml Intake Oral 480 ml 240 ml IV Total 400 ml 100 ml Output Urine Total 400 ml 350 ml Bladder Scan Volume Amount 296 ml # Voids 2 # Bowel Movements 0 Result Diagram: 07/25/17 0530 07/25/17 0530 Other Results Last Impressions Chest X-Ray 07/25/17 0032 Signed Impressions: Service Date/Time: Tuesday, July 25, 2017 00:38 - CONCLUSION: There is essentially complete opacification of the right hemithorax currently related to worsening consolidation and effusion. Jose Herman MD Objective Remarks GENERAL: Patient is 82 yo lying in bed in NAD SKIN: Warm and dry. HEAD: Normocephalic. EYES: No scleral icterus. No injection or drainage. NECK: Supple, trachea midline. No JVD or lymphadenopathy. CARDIOVASCULAR: Regular rate and rhythm without murmurs, gallops, or rubs. RESPIRATORY: Diminished BS on right. No accessory muscle use. GASTROINTESTINAL: Abdomen soft, non-tender, nondistended. MUSCULOSKELETAL: No cyanosis, or edema. Neuro: Awake and alert A/P Assessment and Plan 10Resp Insuff 2)Opacification of right hemithorax 3)Bilateral pleural effusion. 4)Atrial fibrillation. 5)Hyponatremia, hypokalemia 6)Hypothyroidism. 7)Hypertension. 8)Myasthenia gravis. 9)Chronic anemia. 10 Hx Breast ca PLAN: Continue with oxygen keep sats >92% Bronchodilators, on solumederol 60mg Q6 For US guided right thoracentesis today, send pleural fluid for analysis, cytology/cxs Continue abx for now ( Vanco, Zosyn) monitor for signs of infections ( Fever, WBC) Follow up on blood culture Continue with Lasix 20mg daily, for K replacement today Echo from February 2017 showed EF 55-60% Patient had PET scan as outpatient- awaiting records GI/DVT prophylaxis per primary team. Manish Florentino MD Jul 25, 2017 10:08
[2017-07-25] MEDS ORDERED: POTASSIUM CHLORIDE 25 MEQ EFFERVESCENT TAB PO ONE ×2 (11:15→14:00)
[2017-07-25] MEDS: FUROSEMIDE 20 MG/2 ML VIAL IV PUSH SCH (12:18)
[2017-07-25] MEDS: NYSTATIN SUSP 500,000 U/5 ML CUP SWISH-SWAL SCH ×3 (12:20→22:39)
[2017-07-25] MEDS: POLYETHYLENE GLYCOL 17 GM PKG PO SCH (13:27)
--- NOTE | 2017-07-25 14:00 | PD.CARD.PN ---
Subjective Subjective Remarks Doing much better today SOB decreased, heart rates controlled Objective Medications Current Medications Medications (Trade) Dose Ordered Sig/Naldo Route Start Time Stop Time Status Last Admin Pharmacy Profile Note 0 ml @ 0 mls/hr UNSCH OTHER 07/24/17 05:45 Vancomycin HCl 1250 mg/Sodium Chloride 262.5 ml @ 262.5 mls/ hr Q24H IV 07/25/17 05:00 07/25/17 05:13 Piperacillin Sod/ Tazobactam Sod 100 ml @ 200 mls/hr Q6H IV 07/24/17 11:00 07/25/17 12:26 (NS Flush) 2 ml UNSCH PRN IV FLUSH 07/24/17 05:45 (NS Flush) 2 ml BID IV FLUSH 07/24/17 09:00 07/25/17 09:38 (Tylenol) 650 mg Q4H PRN PO 07/24/17 05:45 (Zofran Inj) 4 mg Q6H PRN IVP 07/24/17 05:45 (Narcan Inj) 0.4 mg UNSCH PRN IV PUSH 07/24/17 05:45 (Connie-Colace) 1 tab BID PO 07/24/17 09:00 07/25/17 09:36 (Milk Of Magnesia Liq) 30 ml Q12H PRN PO 07/24/17 05:45 (Senokot) 17.2 mg Q12H PRN PO 07/24/17 05:45 (Dulcolax Supp) 10 mg DAILY PRN RECTAL 07/24/17 05:45 (Lactulose Liq) 30 ml DAILY PRN PO 07/24/17 05:45 Miscellaneous Information SPECIFIC LAB TO BE LENA... ONCE ONCE .XX 07/27/17 04:45 07/27/17 04:46 (Lopressor) 25 mg Q12HR PO 07/24/17 13:00 07/25/17 09:36 (Duoneb Neb) 1 ampule Q4HR NEB NEB 07/24/17 16:00 07/25/17 12:06 (SoluMEDROL INJ) 60 mg Q6H IV PUSH 07/24/17 14:00 07/25/17 13:28 (Albuterol Concentrated Neb) 2.5 mg Q2HR NEB PRN NEB 07/24/17 13:45 (Lasix Inj) 20 mg DAILY IV PUSH 07/24/17 14:00 07/25/17 12:18 (Heparin Inj) 5,000 units Q8HR SQ 07/24/17 22:00 07/25/17 05:12 (Cardizem) 90 mg Q6HR PO 07/25/17 00:00 07/25/17 12:19 (Miralax) 17 gm DAILY PO 07/25/17 11:15 07/25/17 13:27 (Mycostatin Liq) 5 ml QID SWISH-SWAL 07/25/17 13:00 07/25/17 12:20 (K-Lyte Cl Eff) 25 meq ONCE ONCE PO 07/25/17 14:00 07/25/17 14:01 07/25/17 13:29 Vital Signs / I&O Vital Signs Date Time Temp Pulse Resp B/P (MAP) Pulse Ox O2 Delivery O2 Flow Rate FiO2 07/25/17 09:13 97 Nasal Cannula 6.00 07/25/17 06:00 66 07/25/17 05:00 64 07/25/17 04:00 95 40 07/25/17 04:00 92 07/25/17 03:00 98.0 98 117/76 (90) 99 07/25/17 03:00 90 07/25/17 02:00 84 07/25/17 01:27 101/69 07/25/17 01:00 96 07/25/17 00:45 95 40 07/25/17 00:00 114 07/25/17 00:00 97.6 72 101/69 (80) 97 07/24/17 23:00 110 07/24/17 22:00 84 07/24/17 21:00 98 07/24/17 20:50 98 Simple Mask 8.00 07/24/17 20:00 82 07/24/17 20:00 97.2 77 117/69 (85) 93 07/24/17 19:00 80 07/24/17 18:00 94 07/24/17 17:10 94 Simple Mask 9.00 07/24/17 17:00 102 07/24/17 16:00 83 07/24/17 15:00 97.9 79 20 118/64 (82) 98 07/24/17 15:00 98 07/24/17 14:20 95 Simple Mask 10.00 07/24/17 14:00 87 07/24/17 14:00 130 118/64 I/O 07/24/17 07/24/17 07/24/17 07/25/17 07/25/17 07/25/17 07:00 15:00 23:00 07:00 15:00 23:00 Intake Total 400 ml 580 ml 240 ml Output Total 400 ml 350 ml Balance 400 ml 180 ml -110 ml Intake Oral 480 ml 240 ml IV Total 400 ml 100 ml Output Urine Total 400 ml 350 ml Bladder Scan Volume Amount 296 ml # Voids 2 # Bowel Movements 0 Physical Exam GENERAL: NAD, AAOx3 SKIN: Warm and dry. HEAD: Atraumatic. Normocephalic. EYES: Pupils equal and round. No scleral icterus. No injection or drainage. ENT: No nasal bleeding or discharge. Mucous membranes pink and moist. NECK: Trachea midline. No JVD. CARDIOVASCULAR: Irregularly irregular RESPIRATORY: No accessory muscle use. Decreased breath sounds bilaterally, right > left GASTROINTESTINAL: Abdomen soft, non-tender, nondistended. Hepatic and splenic margins not palpable. MUSCULOSKELETAL: Extremities without clubbing, cyanosis, or edema. No obvious deformities. NEUROLOGICAL: Awake and alert. No obvious cranial nerve deficits. Motor grossly within normal limits. Five out of 5 muscle strength in the arms and legs. Normal speech. PSYCHIATRIC: Appropriate mood and affect; insight and judgment normal. Laboratory Laboratory Tests Test 07/24/17 18:00 07/25/17 00:28 07/25/17 05:30 Prothrombin Time 10.1 SEC Prothromb Time International Ratio 1.0 RATIO Activated Partial Thromboplast Time 25.4 SEC Total Creatine Kinase 40 U/L Troponin I 0.08 NG/ML Thyroid Stimulating Hormone 3rd Gen 2.420 uIU/ML Blood Gas Puncture Site RT RADIAL Blood Gas Patient Temperature 98.6 Blood Gas HCO3 38 mmol/L Blood Gas Base Excess 12.9 mmol/L Blood Gas Oxygen Saturation 90 % Arterial Blood pH 7.41 Arterial Blood Partial Pressure CO2 62 mmHg Arterial Blood Partial Pressure O2 68 mmHg Arterial Blood Oxygen Content 14.5 Vol % Arterial Blood Carboxyhemoglobin 0.9 % Arterial Blood Methemoglobin 1.1 % Blood Gas Hemoglobin 11.4 G/DL Oxygen Delivery Device NRB MASK Blood Gas Liter Flow 15 L/M White Blood Count 10.8 TH/MM3 Red Blood Count 3.10 MIL/MM3 Hemoglobin 10.5 GM/DL Hematocrit 30.4 % Mean Corpuscular Volume 98.2 FL Mean Corpuscular Hemoglobin 33.7 PG Mean Corpuscular Hemoglobin Concent 34.4 % Red Cell Distribution Width 14.2 % Platelet Count 179 TH/MM3 Mean Platelet Volume 7.4 FL Neutrophils (%) (Auto) 97.4 % Lymphocytes (%) (Auto) 1.5 % Monocytes (%) (Auto) 1.1 % Eosinophils (%) (Auto) 0.0 % Basophils (%) (Auto) 0.0 % Neutrophils # (Auto) 10.5 TH/MM3 Lymphocytes # (Auto) 0.2 TH/MM3 Monocytes # (Auto) 0.1 TH/MM3 Eosinophils # (Auto) 0.0 TH/MM3 Basophils # (Auto) 0.0 TH/MM3 CBC Comment DIFF FINAL Differential Comment Blood Urea Nitrogen 20 MG/DL Creatinine 0.62 MG/DL Random Glucose 124 MG/DL Calcium Level 9.3 MG/DL Sodium Level 128 MEQ/L Potassium Level 3.3 MEQ/L Chloride Level 82 MEQ/L Carbon Dioxide Level 38.3 MEQ/L Anion Gap 8 MEQ/L Estimat Glomerular Filtration Rate 92 ML/MIN Imaging Last 24 hours Impressions Chest X-Ray 07/25/17 0032 Signed Impressions: Service Date/Time: Tuesday, July 25, 2017 00:38 - CONCLUSION: There is essentially complete opacification of the right hemithorax currently related to worsening consolidation and effusion. Jose Herman MD Assessment and Plan Problem List: (1) Paroxysmal atrial fibrillation ICD Codes: I48.0 - Paroxysmal atrial fibrillation Status: Acute (2) Tachycardia ICD Codes: R00.0 - Tachycardia, unspecified Status: Acute (3) Myasthenia gravis ICD Codes: G70.00 - Myasthenia gravis without (acute) exacerbation Status: Acute (4) History of breast cancer ICD Codes: Z85.3 - Personal history of malignant neoplasm of breast Status: Acute (5) Elevated troponin ICD Codes: R74.8 - Abnormal levels of other serum enzymes Status: Acute (6) Edema of both legs ICD Codes: R60.0 - Localized edema Status: Acute (7) Hyponatremia ICD Codes: E87.1 - Hypo-osmolality and hyponatremia Status: Acute (8) Hypertension ICD Codes: I10 - Essential (primary) hypertension Status: Acute Assessment and Plan 1) Afib with RVR Rates now controlled, con't CCB/BB Not currently on anti-coagulation, will plan to hold off as patient will be getting thoracentesis Will review outpatient office note to see if there is a reason for or against anti-coagulation 2) Recurrent pleural effusion Plan for thoracentesis today 3) Dyspnea Secondary to pleural effusion as well as Afib with RVR 4) Minimally elevated troponin Due to Afib with RVR and SOB/pleural effusion 5) Outpatient PET scan Review of the report shows a large loculated pleural effusion with pleural uptake highly suspicious for pleural based metastatic disease as well as mediastinal adenopathy, highly suspicious for metastatic disease, a right lung base parenchymal opacity is mass like essentially consolidated collapsed lung, however underlying malignancy in this location should be entertained. She will be further evaluated by pulmonology for considerations of thoracentesis so that pleural effusion can be evaluated for malignant cells. 6) 2D echo pending Luca Murphy DO Jul 25, 2017 14:00
[2017-07-25] MEDS: ACETAMINOPHEN 325 MG TAB PO PRN (15:15)
--- NOTE | 2017-07-25 16:59 | ECHRPT ---
Indication: ATRIAL FIB/FLUTTER CONCLUSIONS Normal left ventricular size. Mild concentric left ventricular hypertrophy. The left ventricular systolic function is normal with an estimated ejection fraction in the range of 55-60%. The left atrial size is moderately dilated. The right atrial size is mildly dilated. No atrial level shunt is demonstrated by color flow Doppler interrogation. Moderate mitral valve regurgitation. Severe mitral annular calcification. Aortic valve sclerosis is present. Trace aortic valve regurgitation. There is moderate tricuspid regurgitation. The estimated pulmonary arterial pressure is 48.9 mmHg. Mild pulmonary valve regurgitation. BP: 124 / 80 HR: 87 Rhythm: Atrial fibrillation, Atrial flut ter MEASUREMENTS (Male / Female) Normal Values Technical Quality:Fair 2D ECHO LV Diastolic Diameter PLAX 3.6 cm 4.2 - 5.9 / 3.9 - 5.3 cm LV Systolic Diameter PLAX 2.3 cm IVS Diastolic Thickness 1.1 cm 0.6 - 1.0 / 0.6 - 0.9 cm LVPW Diastolic Thickness 1.1 cm 0.6 - 1.0 / 0.6 - 0.9 cm LV Relative Wall Thickness 0.6 RV Internal Dim ED PLAX 3.2 cm LVOT Diameter 2.2 cm Aortic Root Diameter 3.2 cm LA Systolic Diameter LX 3.5 cm 3.0 - 4.0 / 2.7 - 3.8 cm M-MODE AV Cusp Separation MM 1.6 cm DOPPLER AV Peak Velocity 121.0 cm/s AV Peak Gradient 5.9 mmHg AV Mean Gradient 3.0 mmHg AV Velocity Time Integral 26.8 cm LVOT Peak Velocity 65.8 cm/s LVOT Peak Gradient 1.7 mmHg LVOT Velocity Time Integral 15.2 cm AV Area Cont Eq vti 2.2 cm AV Area Cont Eq pk 2.1 cm MV Peak Velocity 165.5 cm/s MV Peak Gradient 11.0 mmHg MV Mean Velocity 86.0 cm/s MV Mean Gradient 4.0 mmHg Mitral E Point Velocity 123.0 cm/s Mitral A Point Velocity 106.0 cm/s Mitral E to A Ratio 1.2 LV E' Lateral Velocity 4.7 cm/s Mitral E to LV E' Lateral Ratio 26.3 LV E' Septal Velocity 4.3 cm/s Mitral E to LV E' Septal Ratio 28.7 TR Peak Velocity 312.0 cm/s TR Peak Gradient 38.9 mmHg Right Atrial Pressure 10.0 mmHg Pulmonary Artery Systolic Pressu 48.9 mmHg Right Ventricular Systolic Press 48.9 mmHg PV Peak Velocity 52.6 cm/s PV Peak Gradient 1.1 mmHg FINDINGS LEFT VENTRICLE Normal left ventricular size. Mild concentric left ventricular hypertrophy. The left ventricular systolic function is grossly normal on limited imaging. The left ventricular systolic function is normal with an estimated ejection fraction in the range of 55-60%. RIGHT VENTRICLE Normal right ventricular size and systolic function. LEFT ATRIUM The left atrial size is moderately dilated. RIGHT ATRIUM The right atrial size is mildly dilated. ATRIAL SEPTUM No atrial level shunt is demonstrated by color flow Doppler interrogation. AORTA The aortic root and proximal ascending aorta are normal in size on limited imaging. MITRAL VALVE Moderate mitral valve regurgitation. Severe mitral annular calcification. AORTIC VALVE Aortic valve sclerosis is present. Trace aortic valve regurgitation. TRICUSPID VALVE There is moderate tricuspid regurgitation. The estimated pulmonary arterial pressure is 48.9 mmHg. PULMONARY VALVE Mild pulmonary valve regurgitation. VESSELS The inferior vena cava is normal in size. PERICARDIUM No pericardial effusion. Vignesh Walters MD (Electronically Signed) Final Date:25 July 2017 16:58
--- NOTE | 2017-07-25 17:49 | RADRPT ---
EXAM DATE/TIME: 07/25/2017 16:08 [facility] COMPARISON: CHEST EXPIRATION ONLY, July 25, 2017, 17:38. INDICATIONS : Right pleural effusion. MEDICAL HISTORY : Hypothyroidism. Arthritis. Left breast cancer. Chemotherapy. Radiation therapy. SURGICAL HISTORY : Tubal ligation. Left breast lumpectomy. ENCOUNTER: Initial ACUITY: 1 month PAIN SCORE: 2/10 LOCATION: Right chest FLUID: Total volume of 425 cc of clear, red fluid was removed. Fluid was sent to lab for ordered studies. TECHNIQUE: 1. Ultrasound guidance for thoracentesis. 2. Thoracentesis. The risks, benefits, and alternatives to ultrasound guided thoracentesis were explained to the patien t in lay simple terms, including the risk of bleeding and infection. Written and verbal informed con sent was obtained. Appropriate area for thoracentesis was marked under ultrasound guidance with the patient in the uprig ht position. Overlying skin was prepped and draped in the usual sterile fashion and with local anest hetic, a dermatotomy was made with an 11 blade scalpel. A 6 Portuguese thoracentesis catheter was placed in the pleural space and fluid was removed. Catheter was then removed and a sterile dressing applie d. There were no immediate complications. The patient tolerated the procedure well and the left the ultrasound suite in stable condition. Chest radiograph is to be obtained. CONCLUSION: The ultrasound images show the effusion on the right to be highly loculated. This will limit the amou nt of fluid that can be removed via thoracentesis. Edurado Broderick Jr., MD on July 25, 2017 at 17:45 Board Certified Radiologist. This report was verified electronically.
--- NOTE | 2017-07-25 17:59 | RADRPT ---
EXAM DATE/TIME: 07/25/2017 17:38 [facility] COMPARISON: CHEST SINGLE AP, July 25, 2017, 0:38. INDICATIONS : Status post right sided thoracentesis. MEDICAL HISTORY : None. SURGICAL HISTORY : None. ENCOUNTER: Initial ACUITY: 1 day PAIN SCORE: 0/10 LOCATION: Right chest FINDINGS: Single frontal expiratory view of the chest. Right-sided [id number] remains in place. There has be en prominent decrease in size of right pleural effusion. Moderate size residual pleural effusion is s een. No evidence of pneumothorax. Bilateral pulmonary opacity unchanged. CONCLUSION: Decrease in size of right pleural effusion. No evidence of pneumothorax. Apollo Garay MD on July 25, 2017 at 17:56 Board Certified Radiologist. This report was verified electronically.
[2017-07-25] MEDS ORDERED: LIDOCAINE HCL 1% 20 ML VIAL ONE (18:38)
[2017-07-25 21:12] LABS: TOTAL PROTEIN,PLEURAL FLUID 2.6 GM/DL
[2017-07-25 22:34] LABS: PLEURAL FLUID LYMPHS 14 %; PLEURAL FLUID POLYS (SEGS) 86 %; PLEURAL FLUID RBC 61375 /MM3 (0-0); PLEURAL FLUID WBC 205 /MM3 (0-10)
--- NOTE | 2017-07-25 23:01 | EKG ---
Date Performed: 07/24/2017 Time Performed: 03:15:54 PTAGE: 82 years EKG: ATRIAL FIBRILLATION WITH RAPID VENTRICULAR RESPONSE INDETERMINATE AXIS ABNORMAL RHYTHM ECG Since the prior tracing, there has been no significant change DOCTOR: Luca Murphy Interpretating Date/Time 07/25/2017 23:00:47
--- NOTE | 2017-07-25 23:23 | EKG ---
Date Performed: 07/24/2017 Time Performed: 10:05:39 PTAGE: 82 years EKG: ATRIAL FIBRILLATION WITH RAPID VENTRICULAR RESPONSE INDETERMINATE AXIS RIGHT BUNDLE BRANCH BLOCK ABNORMAL ECG PREVIOUS TRACING : 07/24/2017 03.15 Since the prior tracing, there has been no significant murillo DOCTOR: Luca Murphy Interpretating Date/Time 07/25/2017 23:21:58
--- NOTE | 2017-07-25 23:39 | EKG ---
Date Performed: 07/24/2017 Time Performed: 14:29:32 PTAGE: 82 years EKG: Atrial fibrillation with rapid ventricular response Incomplete RBBB ST junctional depressio n is nonspecific Abnormal ECG PREVIOUS TRACING : 07/24/2017 10.05 Since the prior tracing, there has been no significant murillo DOCTOR: Luca Murphy Interpretating Date/Time 07/25/2017 23:38:26
[2017-07-26] VITALS (20 sets, daily range): BP systolic 114–136; BP diastolic 60–65; PULSE 64–96; RESP 16–20; TEMP 96.6–98.8; O2SAT 94–98
[2017-07-26] MEDS: RESP: ALBUTEROL 2.5 MG/IPRATROPIUM 0.5 MG NEB (SCH) NEB ×5 (03:24→21:41)
[2017-07-26] MEDS: methylPREDNISolone SOD SUCC 125 MG/2 ML VIAL IV PUSH SCH (04:13)
[2017-07-26] MEDS: PIPERACIL-TAZO 4.5 GM PREMIX 100 ML IV SCH ×3 (04:13→23:30)
[2017-07-26] MEDS: VANCOMYCIN INJ 1,250 MG in SODIUM CHLOR 0.9% 250 ML INJ 250 ML IV SCH (04:13)
[2017-07-26] MEDS: DILTIAZEM HCL 90 MG TAB PO SCH ×3 (04:17→23:30)
[2017-07-26] MEDS: HEPARIN SODIUM - SQ 10,000 UNITS/ML VIAL SQ SCH ×2 (04:17→21:37)
[2017-07-26 06:42] LABS: BICARBONATE 38.8 MEQ/L (21.0-32.0); CALCIUM 9.3 MG/DL (8.5-10.1); CREATININE 0.66 MG/DL (0.50-1.00); MAGNESIUM 2.1 MG/DL (1.5-2.5)
--- NOTE | 2017-07-26 08:49 | HHI.PR ---
Subjective Remarks This is an 82-year-old female with history of myasthenia gravis, hypertension, atrial fibrillation, and chronic anemia who presented with shortness of breathing. Patient stated that shortness of breathing happened last night so she went to the emergency department. Patient stated that about 2 weeks ago she has been having a cough so was seen practice coordinator Dr. Gaston. Patient stated that she had a thoracentesis done about 1-1/2 weeks ago when she had 100 cc of fluid taken out. She also said that she had a PET scan done. Patient stated that she does not know the results. Patient also found wheezing upon exam she said that she had never had any history of wheezing. Denies any history of COPD or asthma. She denies any chest pain, palpitation, lightheadedness or dizziness. Seen in her bedroom in the presence of her Daughter, she has Respiratory insufficiency, followed by investigative research specialist, recommended to continue Bronchodilator Steroids, awaiting for Right ultrasound guided thoracentesis, to continue Zosyn and Vancomycin. Lasix. Echocardiogram from February 2017 showed EF 55 to 60%. 07/26: Seen in her bedroom and discussed with nurse and her Daughter, her rate is controlled, status post Thoracentesis removed 425 ml of fluid no nausea, vomit or diarrhea. seen by investigative research specialist recommended to continue Oxygen, to follow cytology from Thoracentesis, Outpatient PET scan: large loculated pleural effusion with pleural uptake highly suspicious for pleural based metastatic disease as well as mediastinal adenopathy, highly suspicious for metastatic disease, a right lung base parenchymal opacity is mass like essentially consolidated lung. to continue antibiotics and Potassium replacement. Echo from February 2017 showed EF 55-60%. Objective Vital Signs Date Time Temp Pulse Resp B/P (MAP) Pulse Ox O2 Delivery O2 Flow Rate FiO2 07/26/17 06:00 80 07/26/17 05:00 77 07/26/17 04:00 96.6 85 18 129/62 (84) 98 07/26/17 04:00 72 07/26/17 03:00 77 07/26/17 01:00 72 07/26/17 00:00 64 07/25/17 23:00 70 07/25/17 23:00 96.7 76 18 108/58 (75) 98 07/25/17 22:00 64 07/25/17 21:00 66 07/25/17 20:06 96.7 67 18 111/33 (59) 96 07/25/17 20:00 66 07/25/17 19:48 64 07/25/17 19:44 96 Nasal Cannula 3.00 07/25/17 18:00 63 07/25/17 17:00 74 07/25/17 16:00 73 07/25/17 16:00 98.5 73 18 129/77 (94) 98 07/25/17 15:00 72 07/25/17 14:00 72 07/25/17 13:00 84 07/25/17 13:00 72 07/25/17 12:00 66 07/25/17 11:00 98.8 70 18 122/74 (90) 97 07/25/17 11:00 70 07/25/17 10:00 70 07/25/17 09:13 97 Nasal Cannula 6.00 07/25/17 09:00 66 I/O 07/25/17 07/25/17 07/25/17 07/26/17 07/26/17 07/26/17 07:00 15:00 23:00 07:00 15:00 23:00 Intake Total 240 ml 600 ml 240 ml Output Total 350 ml 325 ml Balance -110 ml 600 ml -85 ml Intake Oral 240 ml 400 ml 240 ml IV Total 200 ml Output Urine Total 350 ml 325 ml Bladder Scan Volume Amount 296 ml # Voids 2 # Bowel Movements 1 0 Result Diagram: 07/25/17 0530 07/26/17 0430 Imaging Last Impressions Chest X-Ray 07/25/17 0032 Signed Impressions: Service Date/Time: Tuesday, July 25, 2017 00:38 - CONCLUSION: There is essentially complete opacification of the right hemithorax currently related to worsening consolidation and effusion. Jose Herman MD Thoracentesis Ultrasound 07/25/17 0000 Signed Impressions: Service Date/Time: Tuesday, July 25, 2017 16:08 - CONCLUSION: The ultrasound images show the effusion on the right to be highly loculated. This will limit the amount of fluid that can be removed via thoracentesis. Eduardo Broderick Jr., MD Procedures Right Thoracentesis Other Results Laboratory Tests Test 07/24/17 03:22 07/24/17 10:15 07/24/17 18:00 3/10/18 00:28 Blood Urea Nitrogen 22 MG/DL Creatinine 0.69 MG/DL Random Glucose 121 MG/DL Total Protein 6.9 GM/DL Albumin 2.0 GM/DL Calcium Level 9.3 MG/DL Alkaline Phosphatase 102 U/L Aspartate Amino Transf (AST/SGOT) 19 U/L Alanine Aminotransferase (ALT/SGPT) 22 U/L Total Bilirubin 0.2 MG/DL Sodium Level 129 MEQ/L Potassium Level 3.7 MEQ/L Chloride Level 87 MEQ/L Carbon Dioxide Level 35.7 MEQ/L B-Type Natriuretic Peptide 422 PG/ML Lipase 85 U/L Lactic Acid Level 2.6 mmol/L Prothrombin Time 10.1 SEC Prothromb Time International Ratio 1.0 RATIO Activated Partial Thromboplast Time 25.4 SEC Total Creatine Kinase 40 U/L Troponin I 0.08 NG/ML Thyroid Stimulating Hormone 3rd Gen 2.420 uIU/ML Blood Gas Puncture Site RT RADIAL Blood Gas Patient Temperature 98.6 Blood Gas HCO3 38 mmol/L Blood Gas Base Excess 12.9 mmol/L Blood Gas Oxygen Saturation 90 % Arterial Blood pH 7.41 Arterial Blood Partial Pressure CO2 62 mmHg Arterial Blood Partial Pressure O2 68 mmHg Arterial Blood Oxygen Content 14.5 Vol % Arterial Blood Carboxyhemoglobin 0.9 % Arterial Blood Methemoglobin 1.1 % Blood Gas Hemoglobin 11.4 G/DL Oxygen Delivery Device NRB MASK Blood Gas Liter Flow 15 L/M Test 07/25/17 05:30 07/25/17 17:26 07/26/17 04:30 White Blood Count 10.8 TH/MM3 Red Blood Count 3.10 MIL/MM3 Hemoglobin 10.5 GM/DL Hematocrit 30.4 % Mean Corpuscular Volume 98.2 FL Mean Corpuscular Hemoglobin 33.7 PG Mean Corpuscular Hemoglobin Concent 34.4 % Red Cell Distribution Width 14.2 % Platelet Count 179 TH/MM3 Mean Platelet Volume 7.4 FL Neutrophils (%) (Auto) 97.4 % Lymphocytes (%) (Auto) 1.5 % Monocytes (%) (Auto) 1.1 % Eosinophils (%) (Auto) 0.0 % Basophils (%) (Auto) 0.0 % Neutrophils # (Auto) 10.5 TH/MM3 Lymphocytes # (Auto) 0.2 TH/MM3 Monocytes # (Auto) 0.1 TH/MM3 Eosinophils # (Auto) 0.0 TH/MM3 Basophils # (Auto) 0.0 TH/MM3 CBC Comment DIFF FINAL Differential Comment Pleural Fluid WBC 205 /MM3 Pleural Fluid RBC 93456 /MM3 Pleural Fluid Neutrophils 86 % Pleural Fluid Lymphocytes 14 % Pleural Fluid Total Protein 2.6 GM/DL Pleural Fluid LDH 369 U/L Pleural Fluid Glucose 96 MG/DL Blood Urea Nitrogen 23 MG/DL Creatinine 0.66 MG/DL Random Glucose 151 MG/DL Calcium Level 9.3 MG/DL Magnesium Level 2.1 MG/DL Sodium Level 132 MEQ/L Potassium Level 3.3 MEQ/L Chloride Level 88 MEQ/L Carbon Dioxide Level 38.8 MEQ/L Anion Gap 5 MEQ/L Estimat Glomerular Filtration Rate 85 ML/MIN Objective Remarks GENERAL: This is a well-nourished, well-developed patient, in no apparent distress. SKIN: No rashes, ecchymoses or lesions. Cool and dry. HEAD: Atraumatic. Normocephalic. No temporal or scalp tenderness. EYES: Pupils equal round and reactive. Extraocular motions intact. No scleral icterus. No injection or drainage. NECK: Trachea midline. No JVD or lymphadenopathy. Supple CARDIOVASCULAR: Irregular rate and irregular rhythm without murmurs RESPIRATORY: Decreased breath sounds bilateral, No wheezing or crackles. GASTROINTESTINAL: Abdomen soft, non-tender, nondistended. MUSCULOSKELETAL: Extremities without clubbing, cyanosis, or edema. NEUROLOGICAL: Awake and alert. No focal deficits. Medications and IVs Current Medications Medications (Trade) Dose Ordered Sig/Naldo Route Start Time Stop Time Status Last Admin Pharmacy Profile Note 0 ml @ 0 mls/hr UNSCH OTHER 07/24/17 05:45 Vancomycin HCl 1250 mg/Sodium Chloride 262.5 ml @ 262.5 mls/ hr Q24H IV 07/25/17 05:00 07/26/17 04:13 Piperacillin Sod/ Tazobactam Sod 100 ml @ 200 mls/hr Q6H IV 07/24/17 11:00 07/26/17 04:13 (NS Flush) 2 ml UNSCH PRN IV FLUSH 07/24/17 05:45 (NS Flush) 2 ml BID IV FLUSH 07/24/17 09:00 07/25/17 22:39 (Tylenol) 650 mg Q4H PRN PO 07/24/17 05:45 07/25/17 15:15 (Zofran Inj) 4 mg Q6H PRN IVP 07/24/17 05:45 (Narcan Inj) 0.4 mg UNSCH PRN IV PUSH 07/24/17 05:45 (Connie-Colace) 1 tab BID PO 07/24/17 09:00 07/25/17 09:36 (Milk Of Magnesia Liq) 30 ml Q12H PRN PO 07/24/17 05:45 (Senokot) 17.2 mg Q12H PRN PO 07/24/17 05:45 (Dulcolax Supp) 10 mg DAILY PRN RECTAL 07/24/17 05:45 (Lactulose Liq) 30 ml DAILY PRN PO 07/24/17 05:45 Miscellaneous Information SPECIFIC LAB TO BE LENA... ONCE ONCE .XX 07/27/17 04:45 07/27/17 04:46 (Lopressor) 25 mg Q12HR PO 07/24/17 13:00 07/25/17 09:36 (Duoneb Neb) 1 ampule Q4HR NEB NEB 07/24/17 16:00 07/26/17 03:24 (SoluMEDROL INJ) 60 mg Q6H IV PUSH 07/24/17 14:00 07/26/17 04:13 (Albuterol Concentrated Neb) 2.5 mg Q2HR NEB PRN NEB 07/24/17 13:45 (Lasix Inj) 20 mg DAILY IV PUSH 07/24/17 14:00 07/25/17 12:18 (Heparin Inj) 5,000 units Q8HR SQ 07/24/17 22:00 07/25/17 05:12 (Cardizem) 90 mg Q6HR PO 07/25/17 00:00 07/26/17 04:17 (Miralax) 17 gm DAILY PO 07/25/17 11:15 07/25/17 13:27 (Mycostatin Liq) 5 ml QID SWISH-SWAL 07/25/17 13:00 07/25/17 22:39 A/P Assessment and Plan This is an 82-year-old female with myasthenia gravis and atrial fibrillation who presented with shortness of breathing Pneumonia -Labs significant for leukocytosis. Imaging significant for chest x-ray with left-sided consolidation and pleural effusion. continue Vancomycin and Zosyn. continue Steroids. bronchodilators. investigative research specialist following. Atrial fibrillation with RVR, on Cardizem by mouth and Beta blockers, -Echocardiogram showed EF 55-60%. -Chest x-ray shows bilateral opacities right greater than left with moderate to large amount of right pleural effusion. -Patient was being worked up by Dr. Gaston as outpatient. She had thoracentesis and a PET scan done and does not know the results. Patient asking for a second opinion from a different practice coordinator. -Outpatient PET scan: large loculated pleural effusion with pleural uptake highly suspicious for pleural based metastatic disease as well as mediastinal adenopathy, highly suspicious for metastatic disease, a right lung base parenchymal opacity is mass like essentially consolidated lung. to continue antibiotics and Potassium replacement. Echo from February 2017 showed EF 55-60%. -Patient given Zosyn and vancomycin in the ED. We will continue with vancomycin and Zosyn. Will have pharmacist manage vancomycin. -Questioned probable malignancy, as per Cardiology do not know why the patient is off anticoagulation will get information from the office. Reactive airway disease -Patient has diffuse wheezing. She has no history of COPD or asthma. Patient has no history of smoking tobacco. -We will schedule duo nebs every 4 hours, as needed albuterol, schedule Solu- Medrol 60 mg IV every 6 hours. Continue to supplement with oxygen. -Later she will need a pulmonary function test. Pleural effusion will go for Right thoracentesis later today. Loculated Pleural effusion status post Thoracentesis. obtained 425 ml of fluid awaiting to follow cytology. electrolyte derangement replacing. Mildly elevated troponin -Troponin 0 0.05 now 0.08. Most likely secondary to age of atrial fibrillation with RVR causing demand ischemia. Hypothyroidism/hypertension/GERD -continue hormonal replacement. DVT prophylaxis -Heparin Code Status daughter, She stated she wants to be a DNI. She is okay with chest compression , shock and medication. she stated her daughter in law will bring her living will. Discussed Condition With patient, his Daughter and Nurse Chase Js. Discharge Planning Once cleared by Cardiology and Pulmonary specialists. Froy Hart MD Jul 26, 2017 08:49
[2017-07-26] MEDS ORDERED: POTASSIUM CHLORIDE 25 MEQ EFFERVESCENT TAB PO ONE ×2 (09:00→11:00)
--- NOTE | 2017-07-26 09:34 | HHI.PR ---
Subjective Remarks Patient s/p US guided right thoracentesis with removal 425ml. On 3L oxygen. Objective Vital Signs Vital Signs Date Time Temp Pulse Resp B/P (MAP) Pulse Ox O2 Delivery O2 Flow Rate FiO2 07/26/17 09:03 96 Nasal Cannula 3.00 07/26/17 06:00 80 07/26/17 05:00 77 07/26/17 04:00 96.6 85 18 129/62 (84) 98 07/26/17 04:00 72 07/26/17 03:00 77 07/26/17 01:00 72 07/26/17 00:00 64 07/25/17 23:00 70 07/25/17 23:00 96.7 76 18 108/58 (75) 98 07/25/17 22:00 64 07/25/17 21:00 66 07/25/17 20:06 96.7 67 18 111/33 (59) 96 07/25/17 20:00 66 07/25/17 19:48 64 07/25/17 19:44 96 Nasal Cannula 3.00 07/25/17 18:00 63 07/25/17 17:00 74 07/25/17 16:00 73 07/25/17 16:00 98.5 73 18 129/77 (94) 98 07/25/17 15:00 72 07/25/17 14:00 72 07/25/17 13:00 84 07/25/17 13:00 72 07/25/17 12:00 66 07/25/17 11:00 98.8 70 18 122/74 (90) 97 07/25/17 11:00 70 07/25/17 10:00 70 I/O 07/25/17 07/25/17 07/25/17 07/26/17 07/26/17 07/26/17 07:00 15:00 23:00 07:00 15:00 23:00 Intake Total 240 ml 600 ml 240 ml Output Total 350 ml 325 ml Balance -110 ml 600 ml -85 ml Intake Oral 240 ml 400 ml 240 ml IV Total 200 ml Output Urine Total 350 ml 325 ml Bladder Scan Volume Amount 296 ml # Voids 2 # Bowel Movements 1 0 Result Diagram: 07/25/17 0530 07/26/17 0430 Other Results Laboratory Tests Test 07/25/17 17:26 07/26/17 04:30 Pleural Fluid WBC 205 /MM3 Pleural Fluid RBC 76167 /MM3 Pleural Fluid Neutrophils 86 % Pleural Fluid Lymphocytes 14 % Pleural Fluid Total Protein 2.6 GM/DL Pleural Fluid LDH 369 U/L Pleural Fluid Glucose 96 MG/DL Blood Urea Nitrogen 23 MG/DL Creatinine 0.66 MG/DL Random Glucose 151 MG/DL Calcium Level 9.3 MG/DL Magnesium Level 2.1 MG/DL Sodium Level 132 MEQ/L Potassium Level 3.3 MEQ/L Chloride Level 88 MEQ/L Carbon Dioxide Level 38.8 MEQ/L Anion Gap 5 MEQ/L Estimat Glomerular Filtration Rate 85 ML/MIN Objective Remarks GENERAL: Patient is 82 yo lying in bed in NAD SKIN: Warm and dry. HEAD: Normocephalic. EYES: No scleral icterus. No injection or drainage. NECK: Supple, trachea midline. No JVD or lymphadenopathy. CARDIOVASCULAR: Regular rate and rhythm without murmurs, gallops, or rubs. RESPIRATORY: Diminished BS on right. No accessory muscle use. GASTROINTESTINAL: Abdomen soft, non-tender, nondistended. MUSCULOSKELETAL: No cyanosis, or edema. Neuro: Awake and alert A/P Assessment and Plan 1)Resp Insuff 2)Opacification of right hemithorax 3)Bilateral pleural effusion. 4)Atrial fibrillation. 5)Hyponatremia, hypokalemia 6)Hypothyroidism. 7)Hypertension. 8)Myasthenia gravis. 9)Chronic anemia. 10 Hx Breast ca PLAN: Continue with oxygen keep sats >92% Bronchodilators, on solumederol 60mg Q6 s/p US guided right thoracentesis with removal 425ml pleural fluid - Exudative by LDH criteria Follow up on pleural fluid for analysis, cytology/cxs Will check CT chest - effusion is loculated per US . Outpatient PET scan: large loculated pleural effusion with pleural uptake highly suspicious for pleural based metastatic disease as well as mediastinal adenopathy, highly suspicious for metastatic disease, a right lung base parenchymal opacity is mass like essentially consolidated lung, however underlying malignancy in this location should be entertained. Continue abx for now ( Vanco, Zosyn) monitor for signs of infections ( Fever, WBC) Follow up on blood culture Continue with Lasix 20mg daily, for K replacement today Echo from February 2017 showed EF 55-60% GI/DVT prophylaxis per primary team. Manish Florentino MD Jul 26, 2017 09:34
--- NOTE | 2017-07-26 13:40 | PD.CARD.PN ---
Subjective Subjective Remarks Doing much better today SOB decreased, heart rates controlled s/p right sided thoracentesis with 425cc out Objective Medications Current Medications Medications (Trade) Dose Ordered Sig/Naldo Route Start Time Stop Time Status Last Admin Pharmacy Profile Note 0 ml @ 0 mls/hr UNSCH OTHER 07/24/17 05:45 Vancomycin HCl 1250 mg/Sodium Chloride 262.5 ml @ 262.5 mls/ hr Q24H IV 07/25/17 05:00 07/26/17 04:13 Piperacillin Sod/ Tazobactam Sod 100 ml @ 200 mls/hr Q6H IV 07/24/17 11:00 07/26/17 04:13 (NS Flush) 2 ml UNSCH PRN IV FLUSH 07/24/17 05:45 (NS Flush) 2 ml BID IV FLUSH 07/24/17 09:00 07/25/17 22:39 (Tylenol) 650 mg Q4H PRN PO 07/24/17 05:45 07/25/17 15:15 (Zofran Inj) 4 mg Q6H PRN IVP 07/24/17 05:45 (Narcan Inj) 0.4 mg UNSCH PRN IV PUSH 07/24/17 05:45 (Connie-Colace) 1 tab BID PO 07/24/17 09:00 07/25/17 09:36 (Milk Of Magnesia Liq) 30 ml Q12H PRN PO 07/24/17 05:45 (Senokot) 17.2 mg Q12H PRN PO 07/24/17 05:45 (Dulcolax Supp) 10 mg DAILY PRN RECTAL 07/24/17 05:45 (Lactulose Liq) 30 ml DAILY PRN PO 07/24/17 05:45 Miscellaneous Information SPECIFIC LAB TO BE LENA... ONCE ONCE .XX 07/27/17 04:45 07/27/17 04:46 (Lopressor) 25 mg Q12HR PO 07/24/17 13:00 07/25/17 09:36 (Duoneb Neb) 1 ampule Q4HR NEB NEB 07/24/17 16:00 07/26/17 12:24 (SoluMEDROL INJ) 60 mg Q6H IV PUSH 07/24/17 14:00 07/26/17 04:13 (Albuterol Concentrated Neb) 2.5 mg Q2HR NEB PRN NEB 07/24/17 13:45 (Lasix Inj) 20 mg DAILY IV PUSH 07/24/17 14:00 07/25/17 12:18 (Heparin Inj) 5,000 units Q8HR SQ 07/24/17 22:00 07/25/17 05:12 (Cardizem) 90 mg Q6HR PO 07/25/17 00:00 07/26/17 04:17 (Miralax) 17 gm DAILY PO 07/25/17 11:15 07/25/17 13:27 (Mycostatin Liq) 5 ml QID SWISH-SWAL 07/25/17 13:00 07/25/17 22:39 Vital Signs / I&O Vital Signs Date Time Temp Pulse Resp B/P (MAP) Pulse Ox O2 Delivery O2 Flow Rate FiO2 07/26/17 09:03 96 Nasal Cannula 3.00 07/26/17 06:00 80 07/26/17 05:00 77 07/26/17 04:00 96.6 85 18 129/62 (84) 98 07/26/17 04:00 72 07/26/17 03:00 77 07/26/17 01:00 72 07/26/17 00:00 64 07/25/17 23:00 70 07/25/17 23:00 96.7 76 18 108/58 (75) 98 07/25/17 22:00 64 07/25/17 21:00 66 07/25/17 20:06 96.7 67 18 111/33 (59) 96 07/25/17 20:00 66 07/25/17 19:48 64 07/25/17 19:44 96 Nasal Cannula 3.00 07/25/17 18:00 63 07/25/17 17:00 74 07/25/17 16:00 73 07/25/17 16:00 98.5 73 18 129/77 (94) 98 07/25/17 15:00 72 07/25/17 14:00 72 I/O 07/25/17 07/25/17 07/25/17 07/26/17 07/26/17 07/26/17 07:00 15:00 23:00 07:00 15:00 23:00 Intake Total 240 ml 600 ml 240 ml Output Total 350 ml 325 ml Balance -110 ml 600 ml -85 ml Intake Oral 240 ml 400 ml 240 ml IV Total 200 ml Output Urine Total 350 ml 325 ml Bladder Scan Volume Amount 296 ml # Voids 2 # Bowel Movements 1 0 Physical Exam GENERAL: NAD, AAOx3 SKIN: Warm and dry. HEAD: Atraumatic. Normocephalic. EYES: Pupils equal and round. No scleral icterus. No injection or drainage. ENT: No nasal bleeding or discharge. Mucous membranes pink and moist. NECK: Trachea midline. No JVD. CARDIOVASCULAR: Irregularly irregular RESPIRATORY: No accessory muscle use. Decreased breath sounds bilaterally GASTROINTESTINAL: Abdomen soft, non-tender, nondistended. Hepatic and splenic margins not palpable. MUSCULOSKELETAL: Extremities without clubbing, cyanosis, or edema. No obvious deformities. NEUROLOGICAL: Awake and alert. No obvious cranial nerve deficits. Motor grossly within normal limits. Five out of 5 muscle strength in the arms and legs. Normal speech. PSYCHIATRIC: Appropriate mood and affect; insight and judgment normal. Laboratory Laboratory Tests Test 07/25/17 17:26 07/26/17 04:30 Pleural Fluid WBC 205 /MM3 Pleural Fluid RBC 01059 /MM3 Pleural Fluid Neutrophils 86 % Pleural Fluid Lymphocytes 14 % Pleural Fluid Total Protein 2.6 GM/DL Pleural Fluid LDH 369 U/L Pleural Fluid Glucose 96 MG/DL Blood Urea Nitrogen 23 MG/DL Creatinine 0.66 MG/DL Random Glucose 151 MG/DL Calcium Level 9.3 MG/DL Magnesium Level 2.1 MG/DL Sodium Level 132 MEQ/L Potassium Level 3.3 MEQ/L Chloride Level 88 MEQ/L Carbon Dioxide Level 38.8 MEQ/L Anion Gap 5 MEQ/L Estimat Glomerular Filtration Rate 85 ML/MIN Assessment and Plan Problem List: (1) Paroxysmal atrial fibrillation ICD Codes: I48.0 - Paroxysmal atrial fibrillation Status: Acute (2) Tachycardia ICD Codes: R00.0 - Tachycardia, unspecified Status: Acute (3) Myasthenia gravis ICD Codes: G70.00 - Myasthenia gravis without (acute) exacerbation Status: Acute (4) History of breast cancer ICD Codes: Z85.3 - Personal history of malignant neoplasm of breast Status: Acute (5) Elevated troponin ICD Codes: R74.8 - Abnormal levels of other serum enzymes Status: Acute (6) Edema of both legs ICD Codes: R60.0 - Localized edema Status: Acute (7) Hyponatremia ICD Codes: E87.1 - Hypo-osmolality and hyponatremia Status: Acute (8) Hypertension ICD Codes: I10 - Essential (primary) hypertension Status: Acute Assessment and Plan 1) Afib with RVR Rates now controlled, con't CCB/BB Not currently on anti-coagulation, will plan to hold off as patient will be getting thoracentesis Will review outpatient office note to see if there is a reason for or against anti-coagulation 2) Recurrent pleural effusion s/p right thoracentesis which removed 425cc fluid 3) Dyspnea Secondary to pleural effusion as well as Afib with RVR 4) Minimally elevated troponin Due to Afib with RVR and SOB/pleural effusion 5) Outpatient PET scan Review of the report shows a large loculated pleural effusion with pleural uptake highly suspicious for pleural based metastatic disease as well as mediastinal adenopathy, highly suspicious for metastatic disease, a right lung base parenchymal opacity is mass like essentially consolidated collapsed lung, however underlying malignancy in this location should be entertained. She will be further evaluated by pulmonology for considerations of thoracentesis so that pleural effusion can be evaluated for malignant cells. 6) EF 55-60% 7) No further cardiovascular work up Daughter would like to see case management and discuss with hospitalist, attempting to get her mother back to her house in [place] to stay with her Luca Murphy DO Jul 26, 2017 13:40
[2017-07-26] MEDS ORDERED: predniSONE 20 MG TAB PO ONE (16:00)
[2017-07-26] MEDS: POTASSIUM CHLOR 20 MEQ PREMIX 100 ML IV SCH ×2 (17:06→19:47)
[2017-07-26] MEDS: NYSTATIN SUSP 500,000 U/5 ML CUP SWISH-SWAL SCH ×2 (17:47→21:37)
[2017-07-26] MEDS: SODIUM CHLORIDE 0.9% FLUSH 10 ML FLUSH IV FLUSH SCH ×2 (17:52→21:37)
[2017-07-26] MEDS: DOCUSATE SODIUM 50 MG/SENNA 8.6 MG TAB PO SCH (21:00)
[2017-07-26] MEDS: METOPROLOL TARTRATE 25 MG TAB PO SCH ×2 (21:00→21:37)
[2017-07-26] MEDS: ACETAMINOPHEN 325 MG TAB PO PRN (21:36)
[2017-07-27] VITALS (24 sets, daily range): BP systolic 114–155; BP diastolic 62–82; PULSE 66–100; RESP 16–18; TEMP 97.1–98.4; O2SAT 92–97
[2017-07-27] MEDS: RESP: ALBUTEROL 2.5 MG/IPRATROPIUM 0.5 MG NEB (SCH) NEB ×7 (00:38→23:35)
[2017-07-27] MEDS: PIPERACIL-TAZO 4.5 GM PREMIX 100 ML IV SCH ×4 (04:36→21:50)
[2017-07-27] MEDS: VANCOMYCIN INJ 1,250 MG in SODIUM CHLOR 0.9% 250 ML INJ 250 ML IV SCH (04:37)
[2017-07-27] MEDS: DILTIAZEM HCL 90 MG TAB PO SCH ×3 (04:37→17:36)
[2017-07-27] MEDS ORDERED: PHARMACY ORDERED LAB ONE (04:45)
[2017-07-27] MEDS: HEPARIN SODIUM - SQ 10,000 UNITS/ML VIAL SQ SCH ×3 (06:00→21:49)
--- NOTE | 2017-07-27 08:56 | HHI.PR ---
Subjective Remarks This is an 82-year-old female with history of myasthenia gravis, hypertension, atrial fibrillation, and chronic anemia who presented with shortness of breathing. Patient stated that shortness of breathing happened last night so she went to the emergency department. Patient stated that about 2 weeks ago she has been having a cough so was seen contact representative Dr. Gaston. Patient stated that she had a thoracentesis done about 1-1/2 weeks ago when she had 100 cc of fluid taken out. She also said that she had a PET scan done. Patient stated that she does not know the results. Patient also found wheezing upon exam she said that she had never had any history of wheezing. Denies any history of COPD or asthma. She denies any chest pain, palpitation, lightheadedness or dizziness. Seen in her bedroom in the presence of her Daughter, she has Respiratory insufficiency, followed by accounts payable specialist, recommended to continue Bronchodilator Steroids, awaiting for Right ultrasound guided thoracentesis, to continue Zosyn and Vancomycin. Lasix. Echocardiogram from February 2017 showed EF 55 to 60%. 07/26: Seen in her bedroom and discussed with nurse and her Daughter, her rate is controlled, status post Thoracentesis removed 425 ml of fluid no nausea, vomit or diarrhea. seen by accounts payable specialist recommended to continue Oxygen, to follow cytology from Thoracentesis, Outpatient PET scan: large loculated pleural effusion with pleural uptake highly suspicious for pleural based metastatic disease as well as mediastinal adenopathy, highly suspicious for metastatic disease, a right lung base parenchymal opacity is mass like essentially consolidated lung. to continue antibiotics and Potassium replacement. Echo from February 2017 showed EF 55-60%. 07/27: Seen in her bedroom, discussed with her Daughter Miss August, she complaint of Dysphagia, asked for Speech therapy for swallow eval, Barium Swallow asked may be related to Myasthenia Gravis but will rule out other pathology. no nausea vomit or diarrhea, her Daughter asking for PET scan result will leave that to accounts payable specialist. Objective Vital Signs Date Time Temp Pulse Resp B/P (MAP) Pulse Ox O2 Delivery O2 Flow Rate FiO2 07/27/17 07:41 92 Nasal Cannula 2.00 07/27/17 04:00 97.1 82 18 139/75 (96) 96 07/27/17 04:00 78 07/27/17 00:00 97.3 68 16 114/62 (79) 94 07/27/17 00:00 66 07/26/17 21:42 94 Nasal Cannula 3.00 07/26/17 20:00 97.6 72 16 114/60 (78) 95 07/26/17 20:00 Nasal Cannula 3.00 Humidified 07/26/17 20:00 70 07/26/17 18:00 76 07/26/17 17:00 74 07/26/17 15:30 98.8 78 16 130/60 (83) 98 07/26/17 15:30 78 07/26/17 15:00 72 07/26/17 14:00 76 07/26/17 13:00 82 07/26/17 12:00 98.0 76 16 136/63 (87) 96 07/26/17 12:00 96 07/26/17 11:00 74 07/26/17 10:00 72 07/26/17 09:03 96 Nasal Cannula 3.00 07/26/17 09:00 92 I/O 07/26/17 07/26/17 07/26/17 07/27/17 07/27/17 07/27/17 07:00 15:00 23:00 07:00 15:00 23:00 Intake Total 240 ml 1100 ml 822.5 ml Output Total 325 ml 100 ml Balance -85 ml 1000 ml 822.5 ml Intake Oral 240 ml 500 ml 360 ml IV Total 600 ml 462.5 ml Output Urine Total 325 ml 100 ml # Voids 3 3 # Bowel Movements 0 1 0 Result Diagram: 07/25/17 0530 07/26/17 1448 Imaging Last Impressions Chest X-Ray 07/25/17 0032 Signed Impressions: Service Date/Time: Tuesday, July 25, 2017 00:38 - CONCLUSION: There is essentially complete opacification of the right hemithorax currently related to worsening consolidation and effusion. Jose Herman MD Thoracentesis Ultrasound 07/25/17 0000 Signed Impressions: Service Date/Time: Tuesday, July 25, 2017 16:08 - CONCLUSION: The ultrasound images show the effusion on the right to be highly loculated. This will limit the amount of fluid that can be removed via thoracentesis. Eduardo Broderick Jr., MD Procedures Right Thoracentesis 07/25/17 Obtained 425 ml Other Results Laboratory Tests Test 07/24/17 03:22 07/24/17 10:15 07/24/17 18:00 07/25/17 00:28 Blood Urea Nitrogen 22 MG/DL Creatinine 0.69 MG/DL Random Glucose 121 MG/DL Total Protein 6.9 GM/DL Albumin 2.0 GM/DL Calcium Level 9.3 MG/DL Alkaline Phosphatase 102 U/L Aspartate Amino Transf (AST/SGOT) 19 U/L Alanine Aminotransferase (ALT/SGPT) 22 U/L Total Bilirubin 0.2 MG/DL Sodium Level 129 MEQ/L Potassium Level 3.7 MEQ/L Chloride Level 87 MEQ/L Carbon Dioxide Level 35.7 MEQ/L B-Type Natriuretic Peptide 422 PG/ML Lipase 85 U/L Lactic Acid Level 2.6 mmol/L Prothrombin Time 10.1 SEC Prothromb Time International Ratio 1.0 RATIO Activated Partial Thromboplast Time 25.4 SEC Total Creatine Kinase 40 U/L Troponin I 0.08 NG/ML Thyroid Stimulating Hormone 3rd Gen 2.420 uIU/ML Blood Gas Puncture Site RT RADIAL Blood Gas Patient Temperature 98.6 Blood Gas HCO3 38 mmol/L Blood Gas Base Excess 12.9 mmol/L Blood Gas Oxygen Saturation 90 % Arterial Blood pH 7.41 Arterial Blood Partial Pressure CO2 62 mmHg Arterial Blood Partial Pressure O2 68 mmHg Arterial Blood Oxygen Content 14.5 Vol % Arterial Blood Carboxyhemoglobin 0.9 % Arterial Blood Methemoglobin 1.1 % Blood Gas Hemoglobin 11.4 G/DL Oxygen Delivery Device NRB MASK Blood Gas Liter Flow 15 L/M Test 07/25/17 05:30 07/25/17 17:26 07/26/17 04:30 07/26/17 14:48 White Blood Count 10.8 TH/MM3 Red Blood Count 3.10 MIL/MM3 Hemoglobin 10.5 GM/DL Hematocrit 30.4 % Mean Corpuscular Volume 98.2 FL Mean Corpuscular Hemoglobin 33.7 PG Mean Corpuscular Hemoglobin Concent 34.4 % Red Cell Distribution Width 14.2 % Platelet Count 179 TH/MM3 Mean Platelet Volume 7.4 FL Neutrophils (%) (Auto) 97.4 % Lymphocytes (%) (Auto) 1.5 % Monocytes (%) (Auto) 1.1 % Eosinophils (%) (Auto) 0.0 % Basophils (%) (Auto) 0.0 % Neutrophils # (Auto) 10.5 TH/MM3 Lymphocytes # (Auto) 0.2 TH/MM3 Monocytes # (Auto) 0.1 TH/MM3 Eosinophils # (Auto) 0.0 TH/MM3 Basophils # (Auto) 0.0 TH/MM3 CBC Comment DIFF FINAL Differential Comment Pleural Fluid WBC 205 /MM3 Pleural Fluid RBC 39092 /MM3 Pleural Fluid Neutrophils 86 % Pleural Fluid Lymphocytes 14 % Pleural Fluid Total Protein 2.6 GM/DL Pleural Fluid LDH 369 U/L Pleural Fluid Glucose 96 MG/DL Blood Urea Nitrogen 23 MG/DL Creatinine 0.66 MG/DL Random Glucose 151 MG/DL Calcium Level 9.3 MG/DL Magnesium Level 2.1 MG/DL Sodium Level 132 MEQ/L Potassium Level 3.3 MEQ/L 3.0 MEQ/L Chloride Level 88 MEQ/L Carbon Dioxide Level 38.8 MEQ/L Anion Gap 5 MEQ/L Estimat Glomerular Filtration Rate 85 ML/MIN Test 07/27/17 04:40 Vancomycin Level Trough 10.4 MCG/ML Objective Remarks GENERAL: Well-developed patient, in no apparent distress. SKIN: No rashes, ecchymoses or lesions. Cool and dry. HEAD: Atraumatic. Normocephalic. No temporal or scalp tenderness. EYES: Pupils equal round and reactive. Extraocular motions intact. No scleral icterus. No injection or drainage. NECK: Trachea midline. No JVD or lymphadenopathy. Supple CARDIOVASCULAR: Irregular rate and irregular rhythm without murmurs RESPIRATORY: Decreased breath sounds bilateral, No wheezing or crackles. GASTROINTESTINAL: Abdomen soft, non-tender, nondistended. MUSCULOSKELETAL: Extremities without clubbing, cyanosis, or edema. NEUROLOGICAL: Awake and alert. No focal deficits. Medications and IVs Current Medications Medications (Trade) Dose Ordered Sig/Naldo Route Start Time Stop Time Status Last Admin Pharmacy Profile Note 0 ml @ 0 mls/hr UNSCH OTHER 07/24/17 05:45 Vancomycin HCl 1250 mg/Sodium Chloride 262.5 ml @ 262.5 mls/ hr Q24H IV 07/25/17 05:00 07/27/17 04:37 Piperacillin Sod/ Tazobactam Sod 100 ml @ 200 mls/hr Q6H IV 07/24/17 11:00 07/27/17 04:36 (NS Flush) 2 ml UNSCH PRN IV FLUSH 07/24/17 05:45 (NS Flush) 2 ml BID IV FLUSH 07/24/17 09:00 07/26/17 21:37 (Tylenol) 650 mg Q4H PRN PO 07/24/17 05:45 07/26/17 21:36 (Zofran Inj) 4 mg Q6H PRN IVP 07/24/17 05:45 (Narcan Inj) 0.4 mg UNSCH PRN IV PUSH 07/24/17 05:45 (Connie-Colace) 1 tab BID PO 07/24/17 09:00 07/25/17 09:36 (Milk Of Magnesia Liq) 30 ml Q12H PRN PO 07/24/17 05:45 (Senokot) 17.2 mg Q12H PRN PO 07/24/17 05:45 (Dulcolax Supp) 10 mg DAILY PRN RECTAL 07/24/17 05:45 (Lactulose Liq) 30 ml DAILY PRN PO 07/24/17 05:45 (Lopressor) 25 mg Q12HR PO 07/24/17 13:00 07/26/17 21:37 (Duoneb Neb) 1 ampule Q4HR NEB NEB 07/24/17 16:00 07/27/17 07:40 (Albuterol Concentrated Neb) 2.5 mg Q2HR NEB PRN NEB 07/24/17 13:45 (Lasix Inj) 20 mg DAILY IV PUSH 07/24/17 14:00 07/25/17 12:18 (Heparin Inj) 5,000 units Q8HR SQ 07/24/17 22:00 07/27/17 06:00 (Cardizem) 90 mg Q6HR PO 07/25/17 00:00 07/26/17 17:47 (Miralax) 17 gm DAILY PO 07/25/17 11:15 07/25/17 13:27 (Mycostatin Liq) 5 ml QID SWISH-SWAL 07/25/17 13:00 07/26/17 21:37 A/P Assessment and Plan This is an 82-year-old female with myasthenia gravis and atrial fibrillation who presented with shortness of breathing Pneumonia -Labs significant for leukocytosis. Imaging significant for chest x-ray with left-sided consolidation and pleural effusion. continue Vancomycin and Zosyn. continue Steroids. bronchodilators. accounts payable specialist following. Atrial fibrillation with RVR, on Cardizem by mouth and Beta blockers, -Echocardiogram showed EF 55-60%. -Chest x-ray shows bilateral opacities right greater than left with moderate to large amount of right pleural effusion. -Patient was being worked up by Dr. Gaston as outpatient. -Outpatient PET scan: large loculated pleural effusion with pleural uptake highly suspicious for pleural based metastatic disease as well as mediastinal adenopathy, highly suspicious for metastatic disease, a right lung base parenchymal opacity is mass like essentially consolidated lung. to continue antibiotics and Potassium replacement. Echo from February 2017 showed EF 55-60%. -Patient given Zosyn and vancomycin in the ED. We will continue with vancomycin and Zosyn. at this time blood culture negative removed Vancomycin. -Questioned probable malignancy, as per Cardiology do not know why the patient is off anticoagulation will get information from the office. Reactive airway disease she had diffused wheezing, no history of COPD or asthma , was given Solu-Medrol she uses Prednisone at home, asked to be restarted again on Prednisone, removed Solu-Medrol. Loculated Pleural effusion status post Thoracentesis. obtained 425 ml of fluid awaiting to follow cytology. electrolyte derangement replacing and following. Potassium 3.4 given 30 meq of Potassium chloride and for Hypophosphatemia given 21 mmol Mildly elevated troponin -Troponin 0 0.05 now 0.08. Most likely secondary to age of atrial fibrillation with RVR causing demand ischemia. Hypothyroidism/hypertension/GERD -continue hormonal replacement. -Dysphagia may be related to Myasthenia Gravis, continue Prednisone, Barium Swallow DVT prophylaxis -Heparin Code Status daughter, She stated she wants to be a DNI. She is okay with chest compression , shock and medication. she stated her daughter in law will bring her living will. Discussed Condition With Patient, Nurse Miss Alberto and daughter August. Discharge Planning Once cleared by Cardiology and Pulmonary specialists. Froy Hart MD Jul 27, 2017 08:56
[2017-07-27] MEDS: POLYETHYLENE GLYCOL 17 GM PKG PO SCH (09:00)
[2017-07-27] MEDS: SODIUM CHLORIDE 0.9% FLUSH 10 ML FLUSH IV FLUSH SCH ×2 (09:00→21:48)
[2017-07-27] MEDS: DOCUSATE SODIUM 50 MG/SENNA 8.6 MG TAB PO SCH ×2 (09:00→21:47)
[2017-07-27] MEDS: predniSONE 10 MG TAB PO SCH ×2 (10:03→21:47)
[2017-07-27] MEDS: METOPROLOL TARTRATE 25 MG TAB PO SCH ×2 (10:04→21:47)
[2017-07-27] MEDS: FUROSEMIDE 20 MG/2 ML VIAL IV PUSH SCH ×2 (10:07→10:24)
[2017-07-27] MEDS: NYSTATIN SUSP 500,000 U/5 ML CUP SWISH-SWAL SCH ×4 (10:08→21:46)
[2017-07-27 10:24] LABS: BICARBONATE 36.9 MEQ/L (21.0-32.0); CALCIUM 9.8 MG/DL (8.5-10.1); CREATININE 0.69 MG/DL (0.50-1.00); MAGNESIUM 2.1 MG/DL (1.5-2.5); PHOSPHORUS 1.6 MG/DL (2.5-4.9)
[2017-07-27] MEDS ORDERED: DEME150T2 PO (10:45)
[2017-07-27] MEDS ORDERED: PRED10 PO (10:45)
[2017-07-27] MEDS ORDERED: FURO40TA PO (10:45)
[2017-07-27] MEDS ORDERED: LEVO88TA2 PO (10:45)
[2017-07-27] MEDS ORDERED: CARD360C PO (10:45)
[2017-07-27] MEDS ORDERED: POTASSIUM PHOSPHATE INJ 21 MMOL in SODIUM CHLORIDE 0.9% INJ 150 ML IV ONE (12:15)
[2017-07-27] MEDS: POTASSIUM CHLOR 10 MEQ PREMIX 100 ML IV SCH ×3 (13:52→15:20)
--- NOTE | 2017-07-27 14:57 | HHI.PR ---
Subjective Remarks patient off the floor thoracentesis done Objective Vital Signs Date Time Temp Pulse Resp B/P (MAP) Pulse Ox O2 Delivery O2 Flow Rate FiO2 07/27/17 14:00 86 07/27/17 13:00 88 07/27/17 12:14 87 07/27/17 11:00 95 07/27/17 11:00 98.4 96 18 137/67 (90) 95 07/27/17 10:00 100 07/27/17 09:00 98 07/27/17 08:54 92 Nasal Cannula 2.00 07/27/17 08:54 100 18 155/82 (106) 92 07/27/17 08:00 96 07/27/17 07:41 92 Nasal Cannula 2.00 07/27/17 07:00 92 07/27/17 04:00 97.1 82 18 139/75 (96) 96 07/27/17 04:00 78 07/27/17 00:00 97.3 68 16 114/62 (79) 94 07/27/17 00:00 66 07/26/17 21:42 94 Nasal Cannula 3.00 07/26/17 20:00 97.6 72 16 114/60 (78) 95 07/26/17 20:00 Nasal Cannula 3.00 Humidified 07/26/17 20:00 70 07/26/17 18:00 76 07/26/17 17:00 74 07/26/17 15:30 98.8 78 16 130/60 (83) 98 07/26/17 15:30 78 07/26/17 15:00 72 I/O 07/26/17 07/26/17 07/26/17 07/27/17 07/27/17 07/27/17 07:00 15:00 23:00 07:00 15:00 23:00 Intake Total 240 ml 1100 ml 822.5 ml Output Total 325 ml 100 ml Balance -85 ml 1000 ml 822.5 ml Intake Oral 240 ml 500 ml 360 ml IV Total 600 ml 462.5 ml Output Urine Total 325 ml 100 ml # Voids 3 3 # Bowel Movements 0 1 0 Result Diagram: 07/25/17 0530 07/27/17 0440 Procedures Right Thoracentesis 07/25/17 Obtained 425 ml Assessment and Plan Assessment and Plan pleural effusion, whiteout right chest myasthenia gravis afib plan check fluid results obtain ct chest Katlyn Potts MD Jul 27, 2017 14:57
[2017-07-27] MEDS ORDERED: IOHEXOL 350 MG/ML 10 ML VIAL (for RAD DIAG) IVCONTRAST ONE (15:08)
--- NOTE | 2017-07-27 15:25 | RADRPT ---
EXAM DATE/TIME: 07/27/2017 14:52 [facility] COMPARISON: No previous studies available for comparison. INDICATIONS : Evaluate effusion. IV CONTRAST: 69 cc Omnipaque 350 (iohexol) IV RADIATION DOSE: 6.7 CTDIvol (mGy) MEDICAL HISTORY : Carcinoma, breast. Hypothyroidism. SURGICAL HISTORY : Tubal ligation. lumpectomy ENCOUNTER: Initial ACUITY: 1 day PAIN SCALE: 0/10 LOCATION: chest TECHNIQUE: Volumetric scanning of the chest was performed. Using automated exposure control and adjustment of t he mA and/or kV according to patient size, radiation dose was kept as low as reasonably achievable to obtain optimal diagnostic quality images. DICOM format image data is available electronically for review and comparison. Follow-up recommendations for detected pulmonary nodules are based at a minimum on nodule size and pa tient risk factors according to Fleischner Society Guidelines. FINDINGS: There is a large right-sided pleural effusion with a loculated appearance extending to the apex. Ther e is patchy alveolar and interstitial infiltrate in the left upper lobe, left lower lobe and atelecta sis and consolidation of the right lower lobe is noted. Air bronchogram formation is seen in the righ t middle lobe with bronchiectasis. A small left effusion is noted. On the right there is significant thickening of the parietal pleura and visceral pleura. There is necrotic lymphadenopathy in the media stinum including a right paratracheal mary alice mass measuring up to 3.3 cm, a large subcarinal mass wily uring up to 3.5 cm. Review of bone windows demonstrate a chronic-appearing deformity of the left [place] ral head, and degenerative changes of the spine. There is a nonacute compression deformity of the T12 vertebral body. CONCLUSION: Large right-sided pleural effusion with pleural thickening, small left effusion. Patchy airspace dise ase, right lower lobe atelectasis and mediastinal adenopathy. Joseph Williamson MD on July 27, 2017 at 15:20 Board Certified Radiologist. This report was verified electronically.
--- NOTE | 2017-07-27 16:50 | PD ---
HPI Chief Complaint: Respiratory Distress Time Seen by Provider: 03:14 Travel History International Travel<30 days: No Contact w/Intl Traveler<30days: No Traveled to known affect area: No History of Present Illness HPI pt is a 82 yr old female with myasthenia Gravis and recent Plural effusion that was tapped in recent weeks, . Pt has Afib , pt comes to ER with SOB desaturating on RA .Arrives via EMS Pt in mild resp distress and on non- rebreather .. able to provide her medical Hx . worsening SOB over last few days. Pt is awake alert and tachycardic possible PNA or recurrence of Pleural effusion. Empiric tylenol given to slow her heart rate if related to fever of PNA. She has not seen by another MD for this episode and took no medication to alleviate her SOB PFSH Past Medical History Arthritis: Yes (jassi. shoulders) Cancer: Yes (breast left) Cardiovascular Problems: No Chemotherapy: Yes Cerebrovascular Accident: No Diabetes: No Endocrine: Yes Genitourinary: No Immune Disorder: No Musculoskeletal: Yes Neurologic: Yes (mystania gravis) Psychiatric: No Reproductive: No Respiratory: No Migraines: No Radiation Therapy: Yes Seizures: No Thyroid Disease: Yes (hypothyroid) Past Surgical History Abdominal Surgery: No AICD: No Arteriovenous Shunt: No Cardiac Surgery: No Ear Surgery: No Endocrine Surgery: No Eye Surgery: No Genitourinary Surgery: No Gynecologic Surgery: Yes (tubal ligation 40 years ago, lumpectomy left breast) Insulin Pump: No Joint Replacement: No Oral Surgery: No Pacemaker: No Thoracic Surgery: No Other Surgery: Yes Social History Alcohol Use: No Tobacco Use: No Substance Use: No Allergies-Medications (Allergen,Severity, Reaction): Coded Allergies: ketorolac (Verified Allergy, Severe, 07/20/17) levofloxacin (Unverified Allergy, Intermediate, rash, 07/20/17) Reported Meds & Prescriptions Reported Meds & Active Scripts Active Cardizem CD 24 HR (Diltiazem CD 24 HR) 180 Mg Caper 180 Mg PO DAILY MDD 180 30 Days Reported Privigen Inj (Immune Globulin) 10 % Inj 55 Gm IV EVERY 8 WEEKS Tylenol (Acetaminophen) 325 Mg Tab 650 Mg PO ONCE PRN Diphenhydramine (Diphenhydramine HCl) 25 Mg Cap 25 Mg PO ONCE PRN Flonase Nasal Seeley (Fluticasone Nasal Seeley) 50 Mcg/Act Seeley 50 Mcg EACH NARE BID Tums (Calcium Carbonate (Antacid)) 500 Mg Chew 200 Mg PO DAILY PRN Lubricant Eye Drops Dry Eye Opth (Polyethylene Glycol-Propylene Opth) 0.4-0.3% Drops 1-2 Drop EACH EYE PRN Levothyroxine (Levothyroxine Sodium) 75 Mcg Tab 75 Mcg PO DAILY Prednisone 10 Mg Tab 10 Mg PO DAILY Probiotic (Saccharomyces Boulardii) Unknown Strength Cap Unknown Dose PO DAILY Vitamin B-12 (Cyanocobalamin) Unknown Strength Tab Unknown Dose PO DAILY Review of Systems Except as stated in HPI: all other systems reviewed are Neg Cardiovascular: Positive: Palpitations, Irregular Rhythm Respiratory: Positive: Shortness of Breath Physical Exam Narrative GENERAL: thin body habitus AOX3 SKIN: Warm and dry. HEAD: Atraumatic. Normocephalic. EYES: Pupils equal and round. No scleral icterus. No injection or drainage. ENT: No nasal bleeding or discharge. Mucous membranes pink and moist. NECK: Trachea midline. No JVD. CARDIOVASCULAR: irregulary irregular tachycardia 134 -144 RESPIRATORY: decrease BS on right lung field . GASTROINTESTINAL: Abdomen soft, non-tender, nondistended. Hepatic and splenic margins not palpable. MUSCULOSKELETAL: Extremities without clubbing, cyanosis, or edema. No obvious deformities. NEUROLOGICAL: Awake and alert. No obvious cranial nerve deficits. Motor grossly within normal limits. Five out of 5 muscle strength in the arms and legs. Normal speech. PSYCHIATRIC: Appropriate mood and affect; insight and judgment normal. Data Data Last Documented VS Vital Signs Date Time Temp Pulse Resp B/P (MAP) Pulse Ox O2 Delivery O2 Flow Rate FiO2 07/24/17 04:20 139 19 96 Nasal Cannula 2.00 07/24/17 04:14 122/72 (89) 07/24/17 03:18 97.9 Orders Orders Complete Blood Count With Diff (07/24/17 03:15) Comprehensive Metabolic Panel (07/24/17 03:15) Ckmb (Isoenzyme) Profile (07/24/17 03:15) Troponin I (07/24/17 03:15) B-Type Natriuretic Peptide (07/24/17 03:15) Lipase (07/24/17 03:15) Chest, Single Ap (07/24/17 03:15) Diltiazem Inj (Cardizem Inj) (07/24/17 03:30) Diltiazem Inj (Cardizem Inj) (07/24/17 03:30) Piperacil-Tazo 3.375 Gm Premix (Zosyn 3. (07/24/17 04:45) Vancomycin Inj (Vancomycin Inj) (07/24/17 04:45) Vital Signs (Adult) Q15MX4,Q4H (07/24/17 04:57) Strapping Machine Tender / Telemetry HARRISON.Q8H (07/24/17 04:57) Cardiac Rhythm HARRISON.Q8H (07/24/17 04:57) Notify Dr: Other (07/24/17 04:57) Diltiazem Inj (Cardizem Inj) (07/24/17 05:00) Acetaminophen (Tylenol) (07/24/17 05:15) Admit Order (Ed Use Only) (07/24/17 05:05) Labs Laboratory Tests Test 07/24/17 03:22 White Blood Count 15.7 TH/MM3 Red Blood Count 3.25 MIL/MM3 Hemoglobin 10.7 GM/DL Hematocrit 31.9 % Mean Corpuscular Volume 98.0 FL Mean Corpuscular Hemoglobin 32.9 PG Mean Corpuscular Hemoglobin Concent 33.6 % Red Cell Distribution Width 14.2 % Platelet Count 199 TH/MM3 Mean Platelet Volume 7.1 FL Neutrophils (%) (Auto) 95.6 % Lymphocytes (%) (Auto) 1.8 % Monocytes (%) (Auto) 2.4 % Eosinophils (%) (Auto) 0.0 % Basophils (%) (Auto) 0.2 % Neutrophils # (Auto) 14.9 TH/MM3 Lymphocytes # (Auto) 0.3 TH/MM3 Monocytes # (Auto) 0.4 TH/MM3 Eosinophils # (Auto) 0.0 TH/MM3 Basophils # (Auto) 0.0 TH/MM3 CBC Comment DIFF FINAL Differential Comment Blood Urea Nitrogen 22 MG/DL Creatinine 0.69 MG/DL Random Glucose 121 MG/DL Total Protein 6.9 GM/DL Albumin 2.0 GM/DL Calcium Level 9.3 MG/DL Alkaline Phosphatase 102 U/L Aspartate Amino Transf (AST/SGOT) 19 U/L Alanine Aminotransferase (ALT/SGPT) 22 U/L Total Bilirubin 0.2 MG/DL Sodium Level 129 MEQ/L Potassium Level 3.7 MEQ/L Chloride Level 87 MEQ/L Carbon Dioxide Level 35.7 MEQ/L Anion Gap 6 MEQ/L Estimat Glomerular Filtration Rate 81 ML/MIN Total Creatine Kinase 22 U/L Troponin I 0.05 NG/ML B-Type Natriuretic Peptide 422 PG/ML Lipase 85 U/L MDM Medical Decision Making Medical Screen Exam Complete: Yes Emergency Medical Condition: Yes Differential Diagnosis DDx includes afib vs fever induced tachycardia vs PNA vs MG exacebation vs Effusion and desaturation causing tachy rhythm and need for AV blockage , tylenol empirically for possible fevver induced techycardia Narrative Course Pt is placed on O2 to support saturation and CXR shows large white area of right lung , reading from RADs is pleural effusion and opacifications, I treat as PNA and Pleural effusion with Zosyn and Vanco and Cardizem for rapid afib, bolused 10 mg then another 10 mg due to advanced age and To moniotor BP as AV node is blocked, Then Cardizem Drip and tele admit for PNA , Effusion and Afib RVR [facility] intermediate ICU for afib RVR and tachy on drip. Diagnosis Primary Impression: Atrial fibrillation with RVR Additional Impressions: Pleural effusion PNA (pneumonia) Admitting Information Admitting Physician Requests: Admit Osmel De La Cruz MD Jul 27, 2017 16:50
--- NOTE | 2017-07-27 17:51 | PD.CARD.PN ---
Subjective Subjective Remarks Doing much better today SOB better, heart rates controlled 07/26 s/p right sided thoracentesis with 425cc out Objective Medications Current Medications Medications (Trade) Dose Ordered Sig/Naldo Route Start Time Stop Time Status Last Admin Piperacillin Sod/ Tazobactam Sod 100 ml @ 200 mls/hr Q6H IV 07/24/17 11:00 07/27/17 17:35 (NS Flush) 2 ml UNSCH PRN IV FLUSH 07/24/17 05:45 (NS Flush) 2 ml BID IV FLUSH 07/24/17 09:00 07/27/17 09:00 (Tylenol) 650 mg Q4H PRN PO 07/24/17 05:45 07/26/17 21:36 (Zofran Inj) 4 mg Q6H PRN IVP 07/24/17 05:45 (Narcan Inj) 0.4 mg UNSCH PRN IV PUSH 07/24/17 05:45 (Connie-Colace) 1 tab BID PO 07/24/17 09:00 07/25/17 09:36 (Milk Of Magnesia Liq) 30 ml Q12H PRN PO 07/24/17 05:45 (Senokot) 17.2 mg Q12H PRN PO 07/24/17 05:45 (Dulcolax Supp) 10 mg DAILY PRN RECTAL 07/24/17 05:45 (Lactulose Liq) 30 ml DAILY PRN PO 07/24/17 05:45 (Lopressor) 25 mg Q12HR PO 07/24/17 13:00 07/27/17 10:04 (Duoneb Neb) 1 ampule Q4HR NEB NEB 07/24/17 16:00 07/27/17 15:39 (Albuterol Concentrated Neb) 2.5 mg Q2HR NEB PRN NEB 07/24/17 13:45 (Lasix Inj) 20 mg DAILY IV PUSH 07/24/17 14:00 07/27/17 10:24 (Heparin Inj) 5,000 units Q8HR SQ 07/24/17 22:00 07/27/17 14:29 (Cardizem) 90 mg Q6HR PO 07/25/17 00:00 07/27/17 17:36 (Miralax) 17 gm DAILY PO 07/25/17 11:15 07/25/17 13:27 (Mycostatin Liq) 5 ml QID SWISH-SWAL 07/25/17 13:00 07/27/17 17:36 (Deltasone) 10 mg BID PO 07/27/17 09:45 07/27/17 10:03 Vital Signs / I&O Vital Signs Date Time Temp Pulse Resp B/P (MAP) Pulse Ox O2 Delivery O2 Flow Rate FiO2 07/27/17 16:02 88 07/27/17 15:18 97.6 85 18 152/76 (101) 95 07/27/17 15:00 88 07/27/17 14:00 86 07/27/17 13:00 88 07/27/17 12:14 87 07/27/17 11:00 95 07/27/17 11:00 98.4 96 18 137/67 (90) 95 07/27/17 10:00 100 07/27/17 09:00 98 07/27/17 08:54 92 Nasal Cannula 2.00 07/27/17 08:54 100 18 155/82 (106) 92 07/27/17 08:00 96 07/27/17 07:41 92 Nasal Cannula 2.00 07/27/17 07:00 92 07/27/17 04:00 97.1 82 18 139/75 (96) 96 07/27/17 04:00 78 07/27/17 00:00 97.3 68 16 114/62 (79) 94 07/27/17 00:00 66 07/26/17 21:42 94 Nasal Cannula 3.00 07/26/17 20:00 97.6 72 16 114/60 (78) 95 07/26/17 20:00 Nasal Cannula 3.00 Humidified 07/26/17 20:00 70 07/26/17 18:00 76 I/O 07/26/17 07/26/17 07/26/17 07/27/17 07/27/17 07/27/17 07:00 15:00 23:00 07:00 15:00 23:00 Intake Total 240 ml 1100 ml 822.5 ml Output Total 325 ml 100 ml Balance -85 ml 1000 ml 822.5 ml Intake Oral 240 ml 500 ml 360 ml IV Total 600 ml 462.5 ml Output Urine Total 325 ml 100 ml # Voids 3 3 # Bowel Movements 0 1 0 Physical Exam GENERAL: NAD, AAOx3 SKIN: Warm and dry. HEAD: Atraumatic. Normocephalic. EYES: Pupils equal and round. No scleral icterus. No injection or drainage. ENT: No nasal bleeding or discharge. Mucous membranes pink and moist. NECK: Trachea midline. No JVD. CARDIOVASCULAR: Irregularly irregular RESPIRATORY: No accessory muscle use. Decreased breath sounds bilaterally GASTROINTESTINAL: Abdomen soft, non-tender, nondistended. Hepatic and splenic margins not palpable. MUSCULOSKELETAL: Extremities without clubbing, cyanosis, or edema. No obvious deformities. NEUROLOGICAL: Awake and alert. No obvious cranial nerve deficits. Motor grossly within normal limits. Five out of 5 muscle strength in the arms and legs. Normal speech. PSYCHIATRIC: Appropriate mood and affect; insight and judgment normal. Laboratory Laboratory Tests Test 07/27/17 04:40 Blood Urea Nitrogen 21 MG/DL Creatinine 0.69 MG/DL Random Glucose 117 MG/DL Calcium Level 9.8 MG/DL Phosphorus Level 1.6 MG/DL Magnesium Level 2.1 MG/DL Sodium Level 136 MEQ/L Potassium Level 3.4 MEQ/L Chloride Level 92 MEQ/L Carbon Dioxide Level 36.9 MEQ/L Anion Gap 7 MEQ/L Estimat Glomerular Filtration Rate 81 ML/MIN Vancomycin Level Trough 10.4 MCG/ML Assessment and Plan Problem List: (1) Paroxysmal atrial fibrillation ICD Codes: I48.0 - Paroxysmal atrial fibrillation Status: Acute (2) Tachycardia ICD Codes: R00.0 - Tachycardia, unspecified Status: Acute (3) Myasthenia gravis ICD Codes: G70.00 - Myasthenia gravis without (acute) exacerbation Status: Acute (4) History of breast cancer ICD Codes: Z85.3 - Personal history of malignant neoplasm of breast Status: Acute (5) Elevated troponin ICD Codes: R74.8 - Abnormal levels of other serum enzymes Status: Acute (6) Edema of both legs ICD Codes: R60.0 - Localized edema Status: Acute (7) Hyponatremia ICD Codes: E87.1 - Hypo-osmolality and hyponatremia Status: Acute (8) Hypertension ICD Codes: I10 - Essential (primary) hypertension Status: Acute Assessment and Plan 1) Afib with RVR Rates now controlled, con't CCB/BB Not currently on anti-coagulation, will plan to hold off as patient will be getting thoracentesis Will review outpatient office note to see if there is a reason for or against anti-coagulation 2) Recurrent pleural effusion s/p right thoracentesis which removed 425cc fluid 3) Dyspnea Secondary to pleural effusion as well as Afib with RVR 4) Minimally elevated troponin Due to Afib with RVR and SOB/pleural effusion 5) Outpatient PET scan Review of the report shows a large loculated pleural effusion with pleural uptake highly suspicious for pleural based metastatic disease as well as mediastinal adenopathy, highly suspicious for metastatic disease, a right lung base parenchymal opacity is mass like essentially consolidated collapsed lung, however underlying malignancy in this location should be entertained. She will be further evaluated by pulmonology for considerations of thoracentesis so that pleural effusion can be evaluated for malignant cells. 6) EF 55-60% 7) No further cardiovascular work up Plan for possible rehab, then daughter taking her to live with her in [place] Luca Murphy DO Jul 27, 2017 17:51
[2017-07-28] VITALS (24 sets, daily range): BP systolic 132–177; BP diastolic 58–88; PULSE 77–100; RESP 16–20; TEMP 97.9–98.1; O2SAT 87–100
[2017-07-28] MEDS: RESP: ALBUTEROL 2.5 MG/IPRATROPIUM 0.5 MG NEB (SCH) NEB ×3 (03:27→12:00)
[2017-07-28] MEDS: HEPARIN SODIUM - SQ 10,000 UNITS/ML VIAL SQ SCH ×3 (05:55→21:44)
[2017-07-28] MEDS: DILTIAZEM HCL 90 MG TAB PO SCH ×4 (05:56→18:11)
[2017-07-28] MEDS: PIPERACIL-TAZO 4.5 GM PREMIX 100 ML IV SCH ×4 (05:56→21:44)
[2017-07-28 07:03] LABS: BICARBONATE 41.3 MEQ/L (21.0-32.0); CALCIUM 9.9 MG/DL (8.5-10.1); CREATININE 0.64 MG/DL (0.50-1.00); MAGNESIUM 2.2 MG/DL (1.5-2.5); PHOSPHORUS 1.8 MG/DL (2.5-4.9)
--- NOTE | 2017-07-28 08:50 | HHI.PR ---
Subjective Remarks This is an 82-year-old female with history of myasthenia gravis, hypertension, atrial fibrillation, and chronic anemia who presented with shortness of breathing. Patient stated that shortness of breathing happened last night so she went to the emergency department. Patient stated that about 2 weeks ago she has been having a cough so was seen aircraft detail draftsperson Dr. Gaston. Patient stated that she had a thoracentesis done about 1-1/2 weeks ago when she had 100 cc of fluid taken out. She also said that she had a PET scan done. Patient stated that she does not know the results. Patient also found wheezing upon exam she said that she had never had any history of wheezing. Denies any history of COPD or asthma. She denies any chest pain, palpitation, lightheadedness or dizziness. Seen in her bedroom in the presence of her Daughter, she has Respiratory insufficiency, followed by automotive parts specialist, recommended to continue Bronchodilator Steroids, awaiting for Right ultrasound guided thoracentesis, to continue Zosyn and Vancomycin. Lasix. Echocardiogram from February 2017 showed EF 55 to 60%. 07/26: Seen in her bedroom and discussed with nurse and her Daughter, her rate is controlled, status post Thoracentesis removed 425 ml of fluid no nausea, vomit or diarrhea. seen by automotive parts specialist recommended to continue Oxygen, to follow cytology from Thoracentesis, Outpatient PET scan: large loculated pleural effusion with pleural uptake highly suspicious for pleural based metastatic disease as well as mediastinal adenopathy, highly suspicious for metastatic disease, a right lung base parenchymal opacity is mass like essentially consolidated lung. to continue antibiotics and Potassium replacement. Echo from February 2017 showed EF 55-60%. 07/27: Seen in her bedroom, discussed with her Daughter Miss August, she complaint of Dysphagia, asked for Speech therapy for swallow eval, Barium Swallow asked may be related to Myasthenia Gravis but will rule out other pathology. no nausea vomit or diarrhea, her Daughter asking for PET scan result will leave that to automotive parts specialist. 07/28: Seen in her bedroom and discussed with her Daughter in law, no diarrhea, vomit or diarrhea. Objective Vital Signs Date Time Temp Pulse Resp B/P (MAP) Pulse Ox O2 Delivery O2 Flow Rate FiO2 07/28/17 07:56 90 20 177/87 (117) 92 07/28/17 07:52 78 07/28/17 07:36 94 Nasal Cannula 3.00 07/28/17 06:07 94 16 177/87 (117) 93 07/28/17 06:00 92 07/28/17 05:00 94 07/28/17 04:00 90 07/28/17 03:00 88 07/28/17 02:00 86 07/28/17 01:00 84 07/28/17 00:00 80 07/27/17 22:00 90 07/27/17 21:00 82 07/27/17 20:48 97 Nasal Cannula 2.00 07/27/17 20:12 83 16 141/70 (93) 95 07/27/17 20:00 74 07/27/17 19:48 Nasal Cannula 3.00 07/27/17 19:00 76 07/27/17 18:00 86 07/27/17 17:00 94 07/27/17 16:02 88 07/27/17 15:18 97.6 85 18 152/76 (101) 95 07/27/17 15:00 88 07/27/17 14:00 86 07/27/17 13:00 88 07/27/17 12:14 87 07/27/17 11:00 95 07/27/17 11:00 98.4 96 18 137/67 (90) 95 07/27/17 10:00 100 07/27/17 09:00 98 07/27/17 08:54 92 Nasal Cannula 2.00 07/27/17 08:54 100 18 155/82 (106) 92 I/O 07/27/17 07/27/17 07/27/17 07/28/17 07/28/17 07/28/17 07:00 15:00 23:00 07:00 15:00 23:00 Intake Total 822.5 ml 1370 ml 450 ml Output Total 1200 ml Balance 822.5 ml 170 ml 450 ml Intake Oral 360 ml 720 ml 240 ml IV Total 462.5 ml 650 ml 210 ml Output Urine Total 1200 ml # Voids 3 2 # Bowel Movements 0 0 Result Diagram: 07/25/17 0530 07/28/17 0608 Imaging Last Impressions Chest CT 07/26/17 0000 Signed Impressions: Service Date/Time: Thursday, July 27, 2017 14:52 - CONCLUSION: Large right-sided pleural effusion with pleural thickening, small left effusion. Patchy airspace disease, right lower lobe atelectasis and mediastinal adenopathy. Joseph Williamson MD Chest X-Ray 07/25/17 0032 Signed Impressions: Service Date/Time: Tuesday, July 25, 2017 00:38 - CONCLUSION: There is essentially complete opacification of the right hemithorax currently related to worsening consolidation and effusion. Jose Herman MD Thoracentesis Ultrasound 07/25/17 0000 Signed Impressions: Service Date/Time: Tuesday, July 25, 2017 16:08 - CONCLUSION: The ultrasound images show the effusion on the right to be highly loculated. This will limit the amount of fluid that can be removed via thoracentesis. Eduardo Broderick Jr., MD Procedures Right Thoracentesis 07/25/17 Obtained 425 ml Other Results Laboratory Tests Test 07/24/17 03:22 07/24/17 10:15 07/24/17 18:00 07/25/17 00:28 Blood Urea Nitrogen 22 MG/DL Creatinine 0.69 MG/DL Random Glucose 121 MG/DL Total Protein 6.9 GM/DL Albumin 2.0 GM/DL Calcium Level 9.3 MG/DL Alkaline Phosphatase 102 U/L Aspartate Amino Transf (AST/SGOT) 19 U/L Alanine Aminotransferase (ALT/SGPT) 22 U/L Total Bilirubin 0.2 MG/DL Sodium Level 129 MEQ/L Potassium Level 3.7 MEQ/L Chloride Level 87 MEQ/L Carbon Dioxide Level 35.7 MEQ/L B-Type Natriuretic Peptide 422 PG/ML Lipase 85 U/L Lactic Acid Level 2.6 mmol/L Prothrombin Time 10.1 SEC Prothromb Time International Ratio 1.0 RATIO Activated Partial Thromboplast Time 25.4 SEC Total Creatine Kinase 40 U/L Troponin I 0.08 NG/ML Thyroid Stimulating Hormone 3rd Gen 2.420 uIU/ML Blood Gas Puncture Site RT RADIAL Blood Gas Patient Temperature 98.6 Blood Gas HCO3 38 mmol/L Blood Gas Base Excess 12.9 mmol/L Blood Gas Oxygen Saturation 90 % Arterial Blood pH 7.41 Arterial Blood Partial Pressure CO2 62 mmHg Arterial Blood Partial Pressure O2 68 mmHg Arterial Blood Oxygen Content 14.5 Vol % Arterial Blood Carboxyhemoglobin 0.9 % Arterial Blood Methemoglobin 1.1 % Blood Gas Hemoglobin 11.4 G/DL Oxygen Delivery Device NRB MASK Blood Gas Liter Flow 15 L/M Test 07/25/17 05:30 07/25/17 17:26 07/27/17 04:40 07/28/17 06:08 White Blood Count 10.8 TH/MM3 Red Blood Count 3.10 MIL/MM3 Hemoglobin 10.5 GM/DL Hematocrit 30.4 % Mean Corpuscular Volume 98.2 FL Mean Corpuscular Hemoglobin 33.7 PG Mean Corpuscular Hemoglobin Concent 34.4 % Red Cell Distribution Width 14.2 % Platelet Count 179 TH/MM3 Mean Platelet Volume 7.4 FL Neutrophils (%) (Auto) 97.4 % Lymphocytes (%) (Auto) 1.5 % Monocytes (%) (Auto) 1.1 % Eosinophils (%) (Auto) 0.0 % Basophils (%) (Auto) 0.0 % Neutrophils # (Auto) 10.5 TH/MM3 Lymphocytes # (Auto) 0.2 TH/MM3 Monocytes # (Auto) 0.1 TH/MM3 Eosinophils # (Auto) 0.0 TH/MM3 Basophils # (Auto) 0.0 TH/MM3 CBC Comment DIFF FINAL Differential Comment Pleural Fluid WBC 205 /MM3 Pleural Fluid RBC 82076 /MM3 Pleural Fluid Neutrophils 86 % Pleural Fluid Lymphocytes 14 % Pleural Fluid Total Protein 2.6 GM/DL Pleural Fluid LDH 369 U/L Pleural Fluid Glucose 96 MG/DL Vancomycin Level Trough 10.4 MCG/ML Blood Urea Nitrogen 17 MG/DL Creatinine 0.64 MG/DL Random Glucose 125 MG/DL Calcium Level 9.9 MG/DL Phosphorus Level 1.8 MG/DL Magnesium Level 2.2 MG/DL Sodium Level 140 MEQ/L Potassium Level 3.4 MEQ/L Chloride Level 95 MEQ/L Carbon Dioxide Level 41.3 MEQ/L Anion Gap 4 MEQ/L Estimat Glomerular Filtration Rate 88 ML/MIN Objective Remarks GENERAL: Well-developed patient, in no apparent distress. SKIN: No rashes, ecchymoses or lesions. Cool and dry. HEAD: Atraumatic. Normocephalic. No temporal or scalp tenderness. EYES: Pupils equal round and reactive. Extraocular motions intact. No scleral icterus. No injection or drainage. NECK: Trachea midline. No JVD or lymphadenopathy. Supple CARDIOVASCULAR: Irregular rate and irregular rhythm without murmurs RESPIRATORY: Decreased breath sounds bilateral, No wheezing or crackles. GASTROINTESTINAL: Abdomen soft, non-tender, nondistended. MUSCULOSKELETAL: Extremities without clubbing, cyanosis, or edema. NEUROLOGICAL: Awake and alert. No focal deficits. Medications and IVs Current Medications Medications (Trade) Dose Ordered Sig/Naldo Route Start Time Stop Time Status Last Admin Piperacillin Sod/ Tazobactam Sod 100 ml @ 200 mls/hr Q6H IV 07/24/17 11:00 07/28/17 05:56 (NS Flush) 2 ml UNSCH PRN IV FLUSH 07/24/17 05:45 (NS Flush) 2 ml BID IV FLUSH 07/24/17 09:00 07/27/17 21:48 (Tylenol) 650 mg Q4H PRN PO 07/24/17 05:45 07/26/17 21:36 (Zofran Inj) 4 mg Q6H PRN IVP 07/24/17 05:45 (Narcan Inj) 0.4 mg UNSCH PRN IV PUSH 07/24/17 05:45 (Connie-Colace) 1 tab BID PO 07/24/17 09:00 07/27/17 21:47 (Milk Of Magnesia Liq) 30 ml Q12H PRN PO 07/24/17 05:45 (Senokot) 17.2 mg Q12H PRN PO 07/24/17 05:45 (Dulcolax Supp) 10 mg DAILY PRN RECTAL 07/24/17 05:45 (Lactulose Liq) 30 ml DAILY PRN PO 07/24/17 05:45 (Lopressor) 25 mg Q12HR PO 07/24/17 13:00 07/27/17 21:47 (Duoneb Neb) 1 ampule Q4HR NEB NEB 07/24/17 16:00 07/28/17 07:35 (Albuterol Concentrated Neb) 2.5 mg Q2HR NEB PRN NEB 07/24/17 13:45 (Lasix Inj) 20 mg DAILY IV PUSH 07/24/17 14:00 07/27/17 10:24 (Heparin Inj) 5,000 units Q8HR SQ 07/24/17 22:00 07/28/17 05:55 (Cardizem) 90 mg Q6HR PO 07/25/17 00:00 07/28/17 05:56 (Miralax) 17 gm DAILY PO 07/25/17 11:15 07/25/17 13:27 (Mycostatin Liq) 5 ml QID SWISH-SWAL 07/25/17 13:00 07/27/17 21:46 (Deltasone) 10 mg BID PO 07/27/17 09:45 07/27/17 21:47 A/P Assessment and Plan This is an 82-year-old female with myasthenia gravis and atrial fibrillation who presented with shortness of breathing Pneumonia -Labs significant for leukocytosis. Imaging significant for chest x-ray with left-sided consolidation and pleural effusion. continue Vancomycin and Zosyn. continue Steroids. bronchodilators. automotive parts specialist following. Atrial fibrillation with RVR, on Cardizem by mouth and Beta blockers, -Echocardiogram showed EF 55-60%. -Chest x-ray shows bilateral opacities right greater than left with moderate to large amount of right pleural effusion. -Patient was being worked up by Dr. Gaston as outpatient. -Outpatient PET scan: large loculated pleural effusion with pleural uptake highly suspicious for pleural based metastatic disease as well as mediastinal adenopathy, highly suspicious for metastatic disease, a right lung base parenchymal opacity is mass like essentially consolidated lung. to continue antibiotics and Potassium replacement. Echo from February 2017 showed EF 55-60%. -Patient given Zosyn and vancomycin in the ED. We will continue with vancomycin and Zosyn. at this time blood culture negative removed Vancomycin. -Questioned probable malignancy, as per Cardiology do not know why the patient is off anticoagulation will get information from the office. Reactive airway disease she had diffused wheezing, no history of COPD or asthma , was given Solu-Medrol she uses Prednisone at home, asked to be restarted again on Prednisone, removed Solu-Medrol. Loculated Pleural effusion status post Thoracentesis. obtained 425 ml of fluid awaiting to follow cytology. electrolyte derangement replacing and following. Potassium 3.4 given 30 meq of Potassium chloride and for Hypophosphatemia given 21 mmol Mildly elevated troponin -Troponin 0 0.05 now 0.08. Most likely secondary to age of atrial fibrillation with RVR causing demand ischemia. Hypothyroidism/hypertension/GERD -continue hormonal replacement. -Dysphagia may be related to Myasthenia Gravis, continue Prednisone, Barium Swallow DVT prophylaxis -Heparin Code Status daughter, She stated she wants to be a DNI. She is okay with chest compression , shock and medication. she stated her daughter in law will bring her living will. Discussed Condition With Patient, Nurse Miss Alberto and daughter Mrs. August. Discharge Planning Once cleared by Cardiology and Pulmonary specialists. Froy Hart MD Jul 28, 2017 08:50
[2017-07-28] MEDS: POLYETHYLENE GLYCOL 17 GM PKG PO SCH (09:00)
[2017-07-28] MEDS: METOPROLOL TARTRATE 25 MG TAB PO SCH ×2 (09:20→21:43)
[2017-07-28] MEDS: predniSONE 10 MG TAB PO SCH ×2 (09:20→21:43)
[2017-07-28] MEDS: DOCUSATE SODIUM 50 MG/SENNA 8.6 MG TAB PO SCH ×2 (09:20→21:43)
[2017-07-28] MEDS: NYSTATIN SUSP 500,000 U/5 ML CUP SWISH-SWAL SCH ×4 (09:22→21:42)
[2017-07-28] MEDS: FUROSEMIDE 20 MG/2 ML VIAL IV PUSH SCH (09:22)
[2017-07-28] MEDS: SODIUM CHLORIDE 0.9% FLUSH 10 ML FLUSH IV FLUSH SCH ×2 (09:22→21:45)
[2017-07-28] MEDS: POTASSIUM CHLOR 10 MEQ PREMIX 100 ML IV SCH ×3 (09:46→18:20)
[2017-07-28] MEDS ORDERED: POTASSIUM PHOSPHATE INJ 21 MMOL in SODIUM CHLORIDE 0.9% INJ 150 ML IV ONE (10:00)
--- NOTE | 2017-07-28 11:49 | RADRPT ---
EXAM DATE/TIME: 07/28/2017 11:14 [facility] COMPARISON: None. INDICATIONS : <<Dysphagia.>> FLUORO TIME: 1.2 minutes IMAGE COUNT: 10 CONTRAST: 1. Liquid E-Z Paque Barium Sulfate (60% w/v, 41% w.w) MEDICAL HISTORY : myasthenia gravis, hx of breast cancer, hypothyroidism SURGICAL HISTORY : Tubal ligation. lumpectomy ENCOUNTER: Initial ACUITY: 4 - 6 days PAIN SCORE: 1/10 LOCATION: Bilateral neck FINDINGS: Exam limited by patient's medical condition. Patient requested she not drink in the lateral position. There is a severe esophageal motility disorder with tertiary contractions. There is reflux to the up per esophagus during the exam. Probable Zenker's diverticulum present. No aspiration noted during the study. CONCLUSION: 1. Severe esophageal motility disorder. 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 No aspiration noted. Reflux t o upper esophagus. Naman Tate MD on July 28, 2017 at 11:40 Board Certified Radiologist. This report was verified electronically.
[2017-07-28 16:12] LABS: AMYLASE BODY FLUID 18 U/L; AMYLASE BODY FLUID TYPE PLEURAL
--- NOTE | 2017-07-28 16:23 | HHI.PR ---
Subjective Remarks alert on o2 congested good cough Objective Vital Signs Date Time Temp Pulse Resp B/P (MAP) Pulse Ox O2 Delivery O2 Flow Rate FiO2 07/28/17 07:56 90 20 177/87 (117) 92 07/28/17 07:52 78 07/28/17 07:36 94 Nasal Cannula 3.00 07/28/17 06:07 94 16 177/87 (117) 93 07/28/17 06:00 92 07/28/17 05:00 94 07/28/17 04:00 90 07/28/17 03:00 88 07/28/17 02:00 86 07/28/17 01:00 84 07/28/17 00:00 Nasal Cannula 3.00 40 07/28/17 00:00 80 07/27/17 22:00 90 07/27/17 21:00 82 07/27/17 20:48 97 Nasal Cannula 2.00 07/27/17 20:12 83 16 141/70 (93) 95 07/27/17 20:00 74 07/27/17 19:48 Nasal Cannula 3.00 07/27/17 19:00 76 07/27/17 18:00 86 07/27/17 17:00 94 I/O 07/27/17 07/27/17 07/27/17 07/28/17 07/28/17 07/28/17 07:00 15:00 23:00 07:00 15:00 23:00 Intake Total 822.5 ml 1370 ml 450 ml Output Total 1200 ml Balance 822.5 ml 170 ml 450 ml Intake Oral 360 ml 720 ml 240 ml IV Total 462.5 ml 650 ml 210 ml Output Urine Total 1200 ml # Voids 3 2 # Bowel Movements 0 0 Result Diagram: 07/25/17 0530 07/28/17 0608 Procedures Right Thoracentesis 07/25/17 Obtained 425 ml Objective Remarks GENERAL: SKIN: Warm and dry. HEAD: Atraumatic. Normocephalic. EYES: Pupils equal and round. No scleral icterus. No injection or drainage. ENT: No nasal bleeding or discharge. Mucous membranes pink and moist. NECK: Trachea midline. No JVD. CARDIOVASCULAR: Regular rate and rhythm. RESPIRATORY: No accessory muscle use. scattered rhonchi. Breath sounds equal bilaterally. GASTROINTESTINAL: Abdomen soft, non-tender, nondistended. Hepatic and splenic margins not palpable. MUSCULOSKELETAL: Extremities without clubbing, cyanosis, or edema. No obvious deformities. NEUROLOGICAL: Awake and alert. No obvious cranial nerve deficits. Motor grossly within normal limits. Five out of 5 muscle strength in the arms and legs. Normal speech. PSYCHIATRIC: Appropriate mood and affect; insight and judgment normal. Assessment and Plan Assessment and Plan pleural effusion, post thoracentesis myasthenia gravis afib increase activity pulmonaty toilet Katlyn Potts MD Jul 28, 2017 16:23
[2017-07-28] MEDS: RESP: ALBUTEROL CONC 2.5 MG/0.5 ML NEB NEB PRN (19:18)
[2017-07-28] MEDS ORDERED: FUROSEMIDE 40 MG/4 ML VIAL IV PUSH ONE (20:30)
[2017-07-28] MEDS ORDERED: POTASSIUM CHLORIDE 20 MEQ CONTROLLED RELEASE TAB PO ONE (20:30)
[2017-07-28] MEDS: POTASSIUM CHLOR 20 MEQ PREMIX 100 ML IV SCH ×2 (21:44→23:55)
[2017-07-29] VITALS (30 sets, daily range): BP systolic 108–166; BP diastolic 48–93; PULSE 69–112; RESP 18–20; TEMP 97.7–98.1; O2SAT 89–100
--- NOTE | 2017-07-29 00:27 | PD.CARD.PN ---
Subjective Subjective Remarks Patient was seen earlier on 07/28, late entry Doing much better today SOB better, heart rates controlled 07/26 s/p right sided thoracentesis with 425cc out Objective Medications Current Medications Medications (Trade) Dose Ordered Sig/Naldo Route Start Time Stop Time Status Last Admin Piperacillin Sod/ Tazobactam Sod 100 ml @ 200 mls/hr Q6H IV 07/24/17 11:00 07/28/17 18:11 (NS Flush) 2 ml UNSCH PRN IV FLUSH 07/24/17 05:45 (NS Flush) 2 ml BID IV FLUSH 07/24/17 09:00 07/28/17 21:45 (Tylenol) 650 mg Q4H PRN PO 07/24/17 05:45 07/26/17 21:36 (Zofran Inj) 4 mg Q6H PRN IVP 07/24/17 05:45 (Narcan Inj) 0.4 mg UNSCH PRN IV PUSH 07/24/17 05:45 (Connie-Colace) 1 tab BID PO 07/24/17 09:00 07/28/17 21:43 (Milk Of Magnesia Liq) 30 ml Q12H PRN PO 07/24/17 05:45 (Senokot) 17.2 mg Q12H PRN PO 07/24/17 05:45 (Dulcolax Supp) 10 mg DAILY PRN RECTAL 07/24/17 05:45 (Lactulose Liq) 30 ml DAILY PRN PO 07/24/17 05:45 (Lopressor) 25 mg Q12HR PO 07/24/17 13:00 07/28/17 21:43 (Albuterol Concentrated Neb) 2.5 mg Q2HR NEB PRN NEB 07/24/17 13:45 07/28/17 19:18 (Lasix Inj) 20 mg DAILY IV PUSH 07/24/17 14:00 07/28/17 09:22 (Heparin Inj) 5,000 units Q8HR SQ 07/24/17 22:00 07/28/17 21:44 (Cardizem) 90 mg Q6HR PO 07/25/17 00:00 07/28/17 18:11 (Miralax) 17 gm DAILY PO 07/25/17 11:15 07/25/17 13:27 (Mycostatin Liq) 5 ml QID SWISH-SWAL 07/25/17 13:00 07/28/17 21:42 (Deltasone) 10 mg BID PO 07/27/17 09:45 07/28/17 21:43 Potassium Chloride 100 ml @ 50 mls/hr Q2H IV 07/28/17 21:00 07/29/17 00:59 07/28/17 23:55 Vital Signs / I&O Vital Signs Date Time Temp Pulse Resp B/P (MAP) Pulse Ox O2 Delivery O2 Flow Rate FiO2 07/28/17 19:18 100 Nasal Cannula 3.00 07/28/17 18:10 97.9 94 20 159/88 (111) 100 07/28/17 16:00 96 07/28/17 12:00 97.9 90 20 132/58 (82) 95 07/28/17 12:00 100 07/28/17 08:00 91 07/28/17 08:00 Nasal Cannula 3.00 07/28/17 08:00 98.0 95 20 157/62 (93) 95 07/28/17 07:56 90 20 177/87 (117) 92 07/28/17 07:52 78 07/28/17 07:36 94 Nasal Cannula 3.00 07/28/17 06:07 94 16 177/87 (117) 93 07/28/17 06:00 92 07/28/17 05:00 94 07/28/17 04:00 90 07/28/17 03:00 88 07/28/17 02:00 86 07/28/17 01:00 84 I/O 07/28/17 07/28/17 07/28/17 07/29/17 07/29/17 07/29/17 07:00 15:00 23:00 07:00 15:00 23:00 Intake Total 450 ml 200 ml Output Total 300 ml Balance 450 ml -100 ml Intake Oral 240 ml 200 ml IV Total 210 ml Output Urine Total 300 ml # Voids 2 2 Physical Exam GENERAL: NAD, AAOx3 SKIN: Warm and dry. HEAD: Atraumatic. Normocephalic. EYES: Pupils equal and round. No scleral icterus. No injection or drainage. ENT: No nasal bleeding or discharge. Mucous membranes pink and moist. NECK: Trachea midline. No JVD. CARDIOVASCULAR: Irregularly irregular RESPIRATORY: No accessory muscle use. Decreased breath sounds bilaterally GASTROINTESTINAL: Abdomen soft, non-tender, nondistended. Hepatic and splenic margins not palpable. MUSCULOSKELETAL: Extremities without clubbing, cyanosis, or edema. No obvious deformities. NEUROLOGICAL: Awake and alert. No obvious cranial nerve deficits. Motor grossly within normal limits. Five out of 5 muscle strength in the arms and legs. Normal speech. PSYCHIATRIC: Appropriate mood and affect; insight and judgment normal. Laboratory Laboratory Tests Test 07/28/17 06:08 Blood Urea Nitrogen 17 MG/DL Creatinine 0.64 MG/DL Random Glucose 125 MG/DL Calcium Level 9.9 MG/DL Phosphorus Level 1.8 MG/DL Magnesium Level 2.2 MG/DL Sodium Level 140 MEQ/L Potassium Level 3.4 MEQ/L Chloride Level 95 MEQ/L Carbon Dioxide Level 41.3 MEQ/L Anion Gap 4 MEQ/L Estimat Glomerular Filtration Rate 88 ML/MIN Assessment and Plan Problem List: (1) Paroxysmal atrial fibrillation ICD Codes: I48.0 - Paroxysmal atrial fibrillation Status: Acute (2) Tachycardia ICD Codes: R00.0 - Tachycardia, unspecified Status: Acute (3) Myasthenia gravis ICD Codes: G70.00 - Myasthenia gravis without (acute) exacerbation Status: Acute (4) History of breast cancer ICD Codes: Z85.3 - Personal history of malignant neoplasm of breast Status: Acute (5) Elevated troponin ICD Codes: R74.8 - Abnormal levels of other serum enzymes Status: Acute (6) Edema of both legs ICD Codes: R60.0 - Localized edema Status: Acute (7) Hyponatremia ICD Codes: E87.1 - Hypo-osmolality and hyponatremia Status: Acute (8) Hypertension ICD Codes: I10 - Essential (primary) hypertension Status: Acute Assessment and Plan 1) Afib with RVR Rates now controlled, con't CCB/BB Not currently on anti-coagulation, will plan to hold off as patient will be getting thoracentesis Will review outpatient office note to see if there is a reason for or against anti-coagulation 2) Recurrent pleural effusion s/p right thoracentesis which removed 425cc fluid 3) Dyspnea Secondary to pleural effusion as well as Afib with RVR 4) Minimally elevated troponin Due to Afib with RVR and SOB/pleural effusion 5) Outpatient PET scan Review of the report shows a large loculated pleural effusion with pleural uptake highly suspicious for pleural based metastatic disease as well as mediastinal adenopathy, highly suspicious for metastatic disease, a right lung base parenchymal opacity is mass like essentially consolidated collapsed lung, however underlying malignancy in this location should be entertained. She will be further evaluated by pulmonology for considerations of thoracentesis so that pleural effusion can be evaluated for malignant cells. 6) EF 55-60% 7) No further cardiovascular work up Plan for possible rehab, then daughter taking her to live with her in [place] Luca Murphy DO Jul 29, 2017 00:26
[2017-07-29] MEDS ORDERED: FUROSEMIDE 20 MG/2 ML VIAL IV PUSH ONE (04:30)
[2017-07-29] MEDS: predniSONE 10 MG TAB PO SCH ×2 (04:39→23:53)
[2017-07-29] MEDS: DOCUSATE SODIUM 50 MG/SENNA 8.6 MG TAB PO SCH ×2 (04:40→21:00)
[2017-07-29] MEDS: METOPROLOL TARTRATE 25 MG TAB PO SCH ×2 (04:40→23:53)
[2017-07-29] MEDS: NYSTATIN SUSP 500,000 U/5 ML CUP SWISH-SWAL SCH ×4 (04:41→23:54)
[2017-07-29] MEDS ORDERED: PHARMACY ORDERED LAB ONE (04:45)
[2017-07-29] MEDS: DILTIAZEM HCL 90 MG TAB PO SCH ×5 (05:58→23:54)
[2017-07-29] MEDS: HEPARIN SODIUM - SQ 10,000 UNITS/ML VIAL SQ SCH ×3 (05:58→23:54)
[2017-07-29] MEDS: PIPERACIL-TAZO 4.5 GM PREMIX 100 ML IV SCH ×4 (06:31→23:54)
[2017-07-29 07:50] LABS: BICARBONATE 43.8 MEQ/L (21.0-32.0); CALCIUM 10.6 MG/DL (8.5-10.1); CREATININE 0.67 MG/DL (0.50-1.00)
[2017-07-29] MEDS: POLYETHYLENE GLYCOL 17 GM PKG PO SCH (10:08)
[2017-07-29] MEDS: FUROSEMIDE 20 MG/2 ML VIAL IV PUSH SCH (10:09)
[2017-07-29] MEDS: SODIUM CHLORIDE 0.9% FLUSH 10 ML FLUSH IV FLUSH SCH ×2 (10:09→23:55)
--- NOTE | 2017-07-29 11:11 | RADRPT ---
EXAM DATE/TIME: 07/29/2017 09:16 [facility] COMPARISON: No previous studies available for comparison. EXTERNAL COMPARISON : [facility], PET CT Tumor, July 22, 2017. Chest Xray, 06/19/2017 INDICATIONS : Right pleural effusion. MEDICAL HISTORY : Hypothyroid. Left breast cancer. Radiation. Myastenia gravis. SURGICAL HISTORY : Left breast lumpectomy. ENCOUNTER: Subsequent ACUITY: 2 weeks PAIN SCORE: 0/10 LOCATION: Right chest MEASUREMENTS: SKIN TO PARIETAL PLEURA: Inadequate fluid SKIN TO MAX SAFE DEPTH: Inadequate fluid ESTIMATED FLUID VOLUME: 287 cc FLUID COMPOSITION: complex FINDINGS: Right-sided therapeutic thoracentesis was not performed due to the small amount of complex pleural fl uid. CONCLUSION: Right-sided therapeutic thoracentesis was not performed due to the small amount of co mplex pleural fluid. Sammy Louise MD on July 29, 2017 at 11:08 Board Certified Radiologist. This report was verified electronically.
[2017-07-29] MEDS: RESP: ALBUTEROL CONC 2.5 MG/0.5 ML NEB NEB PRN (13:22)
[2017-07-29] MEDS: POTASSIUM CHLOR 20 MEQ PREMIX 100 ML IV SCH ×2 (14:45→16:53)
--- NOTE | 2017-07-29 16:19 | HHI.PR ---
Subjective Remarks WEAK TODAY on BIPAP congested good cough Objective Vital Signs Date Time Temp Pulse Resp B/P (MAP) Pulse Ox O2 Delivery O2 Flow Rate FiO2 07/29/17 16:08 100 07/29/17 15:38 97.9 94 20 111/48 (69) 98 07/29/17 15:38 94 07/29/17 14:48 96 40 07/29/17 13:24 100 Non-Rebreather 15.00 07/29/17 13:23 98 07/29/17 12:53 97.9 105 20 117/54 (75) 100 07/29/17 12:53 101 07/29/17 11:13 100 07/29/17 10:51 112 07/29/17 09:36 111 07/29/17 08:02 Bi-Pap 07/29/17 07:54 97.7 86 20 166/93 (117) 95 07/29/17 07:30 100 40 07/29/17 07:21 109 07/29/17 05:20 103 07/29/17 04:20 99 40 07/29/17 04:00 93 07/29/17 04:00 Bi-Pap 07/29/17 03:31 69 18 140/70 (93) 100 07/29/17 03:10 98 Nasal Cannula 6.00 07/29/17 03:00 87 07/29/17 02:00 95 07/29/17 00:18 84 07/29/17 00:00 Bi-Pap 07/29/17 00:00 86 07/29/17 00:00 98.1 83 20 138/73 (94) 89 07/28/17 23:31 98 40 07/28/17 23:00 80 07/28/17 22:00 82 07/28/17 21:00 80 07/28/17 20:30 Nasal Cannula 2.00 07/28/17 20:30 98.1 78 20 156/84 (108) 87 07/28/17 20:06 77 07/28/17 20:00 79 07/28/17 19:18 100 Nasal Cannula 3.00 07/28/17 19:00 88 07/28/17 18:10 97.9 94 20 159/88 (111) 100 I/O 07/28/17 07/28/17 07/28/17 07/29/1718 3/14/18 07:00 15:00 23:00 07:00 15:00 23:00 Intake Total 450 ml 200 ml 460 ml Output Total 300 ml 1900 ml Balance 450 ml -100 ml -1440 ml Intake Oral 240 ml 200 ml 240 ml IV Total 210 ml 220 ml Output Urine Total 300 ml 1900 ml # Voids 2 2 Result Diagram: 07/25/17 0530 07/29/17 0540 Procedures Right Thoracentesis 07/25/17 Obtained 425 ml Objective Remarks GENERAL: SKIN: Warm and dry. HEAD: Atraumatic. Normocephalic. EYES: Pupils equal and round. No scleral icterus. No injection or drainage. ENT: No nasal bleeding or discharge. Mucous membranes pink and moist. NECK: Trachea midline. No JVD. CARDIOVASCULAR: Regular rate and rhythm. RESPIRATORY: No accessory muscle use. scattered rhonchi. Breath sounds equal bilaterally. GASTROINTESTINAL: Abdomen soft, non-tender, nondistended. Hepatic and splenic margins not palpable. MUSCULOSKELETAL: Extremities without clubbing, cyanosis, or edema. No obvious deformities. NEUROLOGICAL: Awake and alert. No obvious cranial nerve deficits. Motor grossly within normal limits. Five out of 5 muscle strength in the arms and legs. Normal speech. PSYCHIATRIC: Appropriate mood and affect; insight and judgment normal. Assessment and Plan Assessment and Plan pleural effusion, post thoracentesis myasthenia gravis afib DETERIORATING PLAN increase activity pulmonary toilet Hospice care Katlyn Potts MD Jul 29, 2017 16:19
--- NOTE | 2017-07-29 16:47 | PD.CARD.PN ---
Subjective Subjective Remarks Doing worse overall On Bipap, overall looks worn down Objective Medications Current Medications Medications (Trade) Dose Ordered Sig/Naldo Route Start Time Stop Time Status Last Admin Piperacillin Sod/ Tazobactam Sod 100 ml @ 200 mls/hr Q6H IV 07/24/17 11:00 07/29/17 11:57 (NS Flush) 2 ml UNSCH PRN IV FLUSH 07/24/17 05:45 (NS Flush) 2 ml BID IV FLUSH 07/24/17 09:00 07/29/17 10:09 (Tylenol) 650 mg Q4H PRN PO 07/24/17 05:45 07/26/17 21:36 (Zofran Inj) 4 mg Q6H PRN IVP 07/24/17 05:45 (Narcan Inj) 0.4 mg UNSCH PRN IV PUSH 07/24/17 05:45 (Connie-Colace) 1 tab BID PO 07/24/17 09:00 07/28/17 09:20 (Milk Of Magnesia Liq) 30 ml Q12H PRN PO 07/24/17 05:45 (Senokot) 17.2 mg Q12H PRN PO 07/24/17 05:45 (Dulcolax Supp) 10 mg DAILY PRN RECTAL 07/24/17 05:45 (Lactulose Liq) 30 ml DAILY PRN PO 07/24/17 05:45 (Lopressor) 25 mg Q12HR PO 07/24/17 13:00 07/28/17 09:20 (Albuterol Concentrated Neb) 2.5 mg Q2HR NEB PRN NEB 07/24/17 13:45 07/29/17 13:22 (Lasix Inj) 20 mg DAILY IV PUSH 07/24/17 14:00 07/29/17 10:09 (Heparin Inj) 5,000 units Q8HR SQ 07/24/17 22:00 07/29/17 14:47 (Cardizem) 90 mg Q6HR PO 07/25/17 00:00 07/29/17 11:58 (Miralax) 17 gm DAILY PO 07/25/17 11:15 07/29/17 10:08 (Mycostatin Liq) 5 ml QID SWISH-SWAL 07/25/17 13:00 07/29/17 12:03 (Deltasone) 10 mg BID PO 07/27/17 09:45 07/28/17 09:20 Potassium Chloride 100 ml @ 50 mls/hr Q2H IV 07/29/17 14:00 07/29/17 17:59 07/29/17 14:45 Vital Signs / I&O Vital Signs Date Time Temp Pulse Resp B/P (MAP) Pulse Ox O2 Delivery O2 Flow Rate FiO2 07/29/17 16:08 100 07/29/17 15:38 97.9 94 20 111/48 (69) 98 07/29/17 15:38 94 07/29/17 14:48 96 40 07/29/17 13:24 100 Non-Rebreather 15.00 07/29/17 13:23 98 07/29/17 12:53 97.9 105 20 117/54 (75) 100 07/29/17 12:53 101 07/29/17 11:13 100 07/29/17 10:51 112 07/29/17 09:36 111 07/29/17 08:02 Bi-Pap 07/29/17 07:54 97.7 86 20 166/93 (117) 95 07/29/17 07:30 100 40 07/29/17 07:21 109 07/29/17 05:20 103 07/29/17 04:20 99 40 07/29/17 04:00 93 07/29/17 04:00 Bi-Pap 07/29/17 03:31 69 18 140/70 (93) 100 07/29/17 03:10 98 Nasal Cannula 6.00 07/29/17 03:00 87 07/29/17 02:00 95 07/29/17 00:18 84 07/29/17 00:00 Bi-Pap 07/29/17 00:00 86 07/29/17 00:00 98.1 83 20 138/73 (94) 89 07/28/17 23:31 98 40 07/28/17 23:00 80 07/28/17 22:00 82 07/28/17 21:00 80 07/28/17 20:30 Nasal Cannula 2.00 07/28/17 20:30 98.1 78 20 156/84 (108) 87 07/28/17 20:06 77 07/28/17 20:00 79 07/28/17 19:18 100 Nasal Cannula 3.00 07/28/17 19:00 88 07/28/17 18:10 97.9 94 20 159/88 (111) 100 I/O 07/28/17 07/28/17 07/28/17 07/29/17 07/29/17 07/29/17 07:00 15:00 23:00 07:00 15:00 23:00 Intake Total 450 ml 200 ml 460 ml Output Total 300 ml 1900 ml Balance 450 ml -100 ml -1440 ml Intake Oral 240 ml 200 ml 240 ml IV Total 210 ml 220 ml Output Urine Total 300 ml 1900 ml # Voids 2 2 Physical Exam GENERAL: Bipap, AAOx3 SKIN: Warm and dry. HEAD: Atraumatic. Normocephalic. EYES: Pupils equal and round. No scleral icterus. No injection or drainage. ENT: No nasal bleeding or discharge. Mucous membranes pink and moist. NECK: Trachea midline. No JVD. CARDIOVASCULAR: Irregularly irregular RESPIRATORY: No accessory muscle use. Decreased breath sounds bilaterally GASTROINTESTINAL: Abdomen soft, non-tender, nondistended. Hepatic and splenic margins not palpable. MUSCULOSKELETAL: Extremities without clubbing, cyanosis, or edema. No obvious deformities. NEUROLOGICAL: Awake and alert. No obvious cranial nerve deficits. Motor grossly within normal limits. Five out of 5 muscle strength in the arms and legs. Normal speech. PSYCHIATRIC: Appropriate mood and affect; insight and judgment normal. Laboratory Laboratory Tests Test 07/29/17 04:42 07/29/17 05:40 Blood Gas Puncture Site RT RADIAL Blood Gas Patient Temperature 98.6 Blood Gas HCO3 44 mmol/L Blood Gas Base Excess 18.0 mmol/L Blood Gas Oxygen Saturation 93 % Arterial Blood pH 7.43 Arterial Blood Partial Pressure CO2 66 mmHg Arterial Blood Partial Pressure O2 77 mmHg Arterial Blood Oxygen Content 15.2 Vol % Arterial Blood Carboxyhemoglobin 1.0 % Arterial Blood Methemoglobin 1.1 % Blood Gas Hemoglobin 11.6 G/DL Oxygen Delivery Device BIPAP Blood Gas Ventilator Setting 15IPAP/10EPAP Blood Gas Inspired Oxygen 40 % Blood Urea Nitrogen 17 MG/DL Creatinine 0.67 MG/DL Random Glucose 111 MG/DL Calcium Level 10.6 MG/DL Magnesium Level 2.0 MG/DL Sodium Level 140 MEQ/L Potassium Level 3.3 MEQ/L Chloride Level 92 MEQ/L Carbon Dioxide Level 43.8 MEQ/L Anion Gap 4 MEQ/L Estimat Glomerular Filtration Rate 84 ML/MIN Imaging Last 24 hours Impressions Chest Ultrasound 07/29/17 0000 Signed Impressions: Service Date/Time: Saturday, July 29, 2017 09:16 - CONCLUSION: Right-sided therapeutic thoracentesis was not performed due to the small amount of complex pleural fluid. Sammy Louise MD Assessment and Plan Problem List: (1) Paroxysmal atrial fibrillation ICD Codes: I48.0 - Paroxysmal atrial fibrillation Status: Acute (2) Tachycardia ICD Codes: R00.0 - Tachycardia, unspecified Status: Acute (3) Myasthenia gravis ICD Codes: G70.00 - Myasthenia gravis without (acute) exacerbation Status: Acute (4) History of breast cancer ICD Codes: Z85.3 - Personal history of malignant neoplasm of breast Status: Acute (5) Elevated troponin ICD Codes: R74.8 - Abnormal levels of other serum enzymes Status: Acute (6) Edema of both legs ICD Codes: R60.0 - Localized edema Status: Acute (7) Hyponatremia ICD Codes: E87.1 - Hypo-osmolality and hyponatremia Status: Acute (8) Hypertension ICD Codes: I10 - Essential (primary) hypertension Status: Acute Assessment and Plan 1) Afib with RVR Rates now controlled, con't CCB/BB Not currently on anti-coagulation, will plan to hold off as patient will be getting thoracentesis 2) Recurrent pleural effusion s/p right thoracentesis which removed 425cc fluid 3) Dyspnea Secondary to pleural effusion as well as Afib with RVR 4) Minimally elevated troponin Due to Afib with RVR and SOB/pleural effusion 5) Outpatient PET scan Review of the report shows a large loculated pleural effusion with pleural uptake highly suspicious for pleural based metastatic disease as well as mediastinal adenopathy, highly suspicious for metastatic disease, a right lung base parenchymal opacity is mass like essentially consolidated collapsed lung, however underlying malignancy in this location should be entertained. She will be further evaluated by pulmonology for considerations of thoracentesis so that pleural effusion can be evaluated for malignant cells. 6) EF 55-60% 7) No further cardiovascular work up Plan for possible rehab, then daughter taking her to live with her in [place] Concern for overall deterioration today (07/29) discussed with daughter Luca Murphy Jul 29, 2017 16:47
--- NOTE | 2017-07-29 18:08 | HHI.PR ---
Subjective Remarks This is an 82-year-old female with history of myasthenia gravis, hypertension, atrial fibrillation, and chronic anemia who presented with shortness of breathing. Patient stated that shortness of breathing happened last night so she went to the emergency department. Patient stated that about 2 weeks ago she has been having a cough so was seen research and development scientist Dr. Gaston. Patient stated that she had a thoracentesis done about 1-1/2 weeks ago when she had 100 cc of fluid taken out. She also said that she had a PET scan done. Patient stated that she does not know the results. Patient also found wheezing upon exam she said that she had never had any history of wheezing. Denies any history of COPD or asthma. She denies any chest pain, palpitation, lightheadedness or dizziness. Seen in her bedroom in the presence of her Daughter, she has Respiratory insufficiency, followed by route sales specialist, recommended to continue Bronchodilator Steroids, awaiting for Right ultrasound guided thoracentesis, to continue Zosyn and Vancomycin. Lasix. Echocardiogram from February 2017 showed EF 55 to 60%. 07/26: Seen in her bedroom and discussed with nurse and her Daughter, her rate is controlled, status post Thoracentesis removed 425 ml of fluid no nausea, vomit or diarrhea. seen by route sales specialist recommended to continue Oxygen, to follow cytology from Thoracentesis, Outpatient PET scan: large loculated pleural effusion with pleural uptake highly suspicious for pleural based metastatic disease as well as mediastinal adenopathy, highly suspicious for metastatic disease, a right lung base parenchymal opacity is mass like essentially consolidated lung. to continue antibiotics and Potassium replacement. Echo from February 2017 showed EF 55-60%. 07/27: Seen in her bedroom, discussed with her Daughter Miss August, she complaint of Dysphagia, asked for Speech therapy for swallow eval, Barium Swallow asked may be related to Myasthenia Gravis but will rule out other pathology. no nausea vomit or diarrhea, her Daughter asking for PET scan result will leave that to route sales specialist. 07/28: Seen in her bedroom and discussed with her Daughter in law. 07/29: Discussed with Daughter in law and patient she is worsening respiratory steward, I offered for Hospice, but will wait for final recommendations by route sales specialist Doctor Juan Carlos, who came and saw the patient and was agreeable with Hospice, asked for Consult. no nausea, vomit or diarrhea. the patient is been on BiPAP during the night and today on non rebreather mask. Objective Vital Signs Date Time Temp Pulse Resp B/P (MAP) Pulse Ox O2 Delivery O2 Flow Rate FiO2 07/29/17 17:34 94 07/29/17 16:08 100 07/29/17 15:38 97.9 94 20 111/48 (69) 98 07/29/17 15:38 94 07/29/17 14:48 96 40 07/29/17 13:24 100 Non-Rebreather 15.00 07/29/17 13:23 98 07/29/17 12:53 97.9 105 20 117/54 (75) 100 07/29/17 12:53 101 07/29/17 11:13 100 07/29/17 10:51 112 07/29/17 09:36 111 07/29/17 08:02 Bi-Pap 07/29/17 07:54 97.7 86 20 166/93 (117) 95 07/29/17 07:30 100 40 07/29/17 07:21 109 07/29/17 05:20 103 07/29/17 04:20 99 40 07/29/17 04:00 93 07/29/17 04:00 Bi-Pap 07/29/17 03:31 69 18 140/70 (93) 100 07/29/17 03:10 98 Nasal Cannula 6.00 07/29/17 03:00 87 07/29/17 02:00 95 07/29/17 00:18 84 07/29/17 00:00 Bi-Pap 07/29/17 00:00 86 07/29/17 00:00 98.1 83 20 138/73 (94) 89 07/28/17 23:31 98 40 07/28/17 23:00 80 07/28/17 22:00 82 07/28/17 21:00 80 07/28/17 20:30 Nasal Cannula 2.00 07/28/17 20:30 98.1 78 20 156/84 (108) 87 07/28/17 20:06 77 07/28/17 20:00 79 07/28/17 19:18 100 Nasal Cannula 3.00 07/28/17 19:00 88 07/28/17 18:10 97.9 94 20 159/88 (111) 100 I/O 07/28/17 07/28/17 07/28/17 07/29/17 07/29/17 07/29/17 07:00 15:00 23:00 07:00 15:00 23:00 Intake Total 450 ml 200 ml 460 ml Output Total 300 ml 1900 ml Balance 450 ml -100 ml -1440 ml Intake Oral 240 ml 200 ml 240 ml IV Total 210 ml 220 ml Output Urine Total 300 ml 1900 ml # Voids 2 2 Result Diagram: 07/25/17 0530 07/29/17 0540 Imaging Last Impressions Chest Ultrasound 07/29/17 0000 Signed Impressions: Service Date/Time: Saturday, July 29, 2017 09:16 - CONCLUSION: Right-sided therapeutic thoracentesis was not performed due to the small amount of complex pleural fluid. Sammy Louise MD Barium Swallow X-Ray 07/28/17 0000 Signed Impressions: Service Date/Time: Friday, July 28, 2017 11:14 - CONCLUSION: 1. Severe esophageal motility disorder. 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 No aspiration noted. Reflux to upper esophagus. Naman Tate MD Chest CT 07/26/17 0000 Signed Impressions: Service Date/Time: Thursday, July 27, 2017 14:52 - CONCLUSION: Large right-sided pleural effusion with pleural thickening, small left effusion. Patchy airspace disease, right lower lobe atelectasis and mediastinal adenopathy. Joseph Williamson MD Chest X-Ray 07/25/17 0032 Signed Impressions: Service Date/Time: Tuesday, July 25, 2017 00:38 - CONCLUSION: There is essentially complete opacification of the right hemithorax currently related to worsening consolidation and effusion. Jose Herman MD Thoracentesis Ultrasound 07/25/17 0000 Signed Impressions: Service Date/Time: Tuesday, July 25, 2017 16:08 - CONCLUSION: The ultrasound images show the effusion on the right to be highly loculated. This will limit the amount of fluid that can be removed via thoracentesis. Eduardo Broderick Jr., MD Procedures Right Thoracentesis 07/25/17 Obtained 425 ml Other Results Laboratory Tests Test 07/24/17 03:22 07/24/17 10:15 07/24/17 18:00 07/25/17 00:28 Blood Urea Nitrogen 22 MG/DL Creatinine 0.69 MG/DL Random Glucose 121 MG/DL Total Protein 6.9 GM/DL Albumin 2.0 GM/DL Calcium Level 9.3 MG/DL Alkaline Phosphatase 102 U/L Aspartate Amino Transf (AST/SGOT) 19 U/L Alanine Aminotransferase (ALT/SGPT) 22 U/L Total Bilirubin 0.2 MG/DL Sodium Level 129 MEQ/L Potassium Level 3.7 MEQ/L Chloride Level 87 MEQ/L Carbon Dioxide Level 35.7 MEQ/L B-Type Natriuretic Peptide 422 PG/ML Lipase 85 U/L Lactic Acid Level 2.6 mmol/L Prothrombin Time 10.1 SEC Prothromb Time International Ratio 1.0 RATIO Activated Partial Thromboplast Time 25.4 SEC Total Creatine Kinase 40 U/L Troponin I 0.08 NG/ML Thyroid Stimulating Hormone 3rd Gen 2.420 uIU/ML Blood Gas Liter Flow 15 L/M Test 07/25/17 05:30 07/25/17 17:26 07/27/17 04:40 07/28/17 06:08 White Blood Count 10.8 TH/MM3 Red Blood Count 3.10 MIL/MM3 Hemoglobin 10.5 GM/DL Hematocrit 30.4 % Mean Corpuscular Volume 98.2 FL Mean Corpuscular Hemoglobin 33.7 PG Mean Corpuscular Hemoglobin Concent 34.4 % Red Cell Distribution Width 14.2 % Platelet Count 179 TH/MM3 Mean Platelet Volume 7.4 FL Neutrophils (%) (Auto) 97.4 % Lymphocytes (%) (Auto) 1.5 % Monocytes (%) (Auto) 1.1 % Eosinophils (%) (Auto) 0.0 % Basophils (%) (Auto) 0.0 % Neutrophils # (Auto) 10.5 TH/MM3 Lymphocytes # (Auto) 0.2 TH/MM3 Monocytes # (Auto) 0.1 TH/MM3 Eosinophils # (Auto) 0.0 TH/MM3 Basophils # (Auto) 0.0 TH/MM3 CBC Comment DIFF FINAL Differential Comment Body Fluid Amylase Source PLEURAL Body Fluid Amylase 18 U/L Pleural Fluid WBC 205 /MM3 Pleural Fluid RBC 18320 /MM3 Pleural Fluid Neutrophils 86 % Pleural Fluid Lymphocytes 14 % Pleural Fluid Total Protein 2.6 GM/DL Pleural Fluid LDH 369 U/L Pleural Fluid Glucose 96 MG/DL Vancomycin Level Trough 10.4 MCG/ML Blood Urea Nitrogen 17 MG/DL Creatinine 0.64 MG/DL Random Glucose 125 MG/DL Calcium Level 9.9 MG/DL Phosphorus Level 1.8 MG/DL Magnesium Level 2.2 MG/DL Sodium Level 140 MEQ/L Potassium Level 3.4 MEQ/L Chloride Level 95 MEQ/L Carbon Dioxide Level 41.3 MEQ/L Test 07/29/17 04:42 07/29/17 05:40 Blood Gas Puncture Site RT RADIAL Blood Gas Patient Temperature 98.6 Blood Gas HCO3 44 mmol/L Blood Gas Base Excess 18.0 mmol/L Blood Gas Oxygen Saturation 93 % Arterial Blood pH 7.43 Arterial Blood Partial Pressure CO2 66 mmHg Arterial Blood Partial Pressure O2 77 mmHg Arterial Blood Oxygen Content 15.2 Vol % Arterial Blood Carboxyhemoglobin 1.0 % Arterial Blood Methemoglobin 1.1 % Blood Gas Hemoglobin 11.6 G/DL Oxygen Delivery Device BIPAP Blood Gas Ventilator Setting 15IPAP/10EPAP Blood Gas Inspired Oxygen 40 % Blood Urea Nitrogen 17 MG/DL Creatinine 0.67 MG/DL Random Glucose 111 MG/DL Calcium Level 10.6 MG/DL Magnesium Level 2.0 MG/DL Sodium Level 140 MEQ/L Potassium Level 3.3 MEQ/L Chloride Level 92 MEQ/L Carbon Dioxide Level 43.8 MEQ/L Anion Gap 4 MEQ/L Estimat Glomerular Filtration Rate 84 ML/MIN Objective Remarks GENERAL: Well-developed patient, in no apparent distress. SKIN: No rashes, ecchymoses or lesions. Cool and dry. HEAD: Atraumatic. Normocephalic. No temporal or scalp tenderness. EYES: Pupils equal round and reactive. Extraocular motions intact. No scleral icterus. No injection or drainage. NECK: Trachea midline. No JVD or lymphadenopathy. Supple CARDIOVASCULAR: Irregular rate and irregular rhythm without murmurs RESPIRATORY: Decreased breath sounds bilateral, No wheezing or crackles. GASTROINTESTINAL: Abdomen soft, non-tender, nondistended. MUSCULOSKELETAL: Extremities without clubbing, cyanosis, or edema. NEUROLOGICAL: Awake and alert. No focal deficits. Medications and IVs Current Medications Medications (Trade) Dose Ordered Sig/Naldo Route Start Time Stop Time Status Last Admin Piperacillin Sod/ Tazobactam Sod 100 ml @ 200 mls/hr Q6H IV 07/24/17 11:00 07/29/17 16:53 (NS Flush) 2 ml UNSCH PRN IV FLUSH 07/24/17 05:45 (NS Flush) 2 ml BID IV FLUSH 07/24/17 09:00 07/29/17 10:09 (Tylenol) 650 mg Q4H PRN PO 07/24/17 05:45 07/26/17 21:36 (Zofran Inj) 4 mg Q6H PRN IVP 07/24/17 05:45 (Narcan Inj) 0.4 mg UNSCH PRN IV PUSH 07/24/17 05:45 (Connie-Colace) 1 tab BID PO 07/24/17 09:00 07/28/17 09:20 (Milk Of Magnesia Liq) 30 ml Q12H PRN PO 07/24/17 05:45 (Senokot) 17.2 mg Q12H PRN PO 07/24/17 05:45 (Dulcolax Supp) 10 mg DAILY PRN RECTAL 07/24/17 05:45 (Lactulose Liq) 30 ml DAILY PRN PO 07/24/17 05:45 (Lopressor) 25 mg Q12HR PO 07/24/17 13:00 07/28/17 09:20 (Albuterol Concentrated Neb) 2.5 mg Q2HR NEB PRN NEB 07/24/17 13:45 07/29/17 13:22 (Lasix Inj) 20 mg DAILY IV PUSH 07/24/17 14:00 07/29/17 10:09 (Heparin Inj) 5,000 units Q8HR SQ 07/24/17 22:00 07/29/17 14:47 (Cardizem) 90 mg Q6HR PO 07/25/17 00:00 07/29/17 11:58 (Miralax) 17 gm DAILY PO 07/25/17 11:15 07/29/17 10:08 (Mycostatin Liq) 5 ml QID SWISH-SWAL 07/25/17 13:00 07/29/17 12:03 (Deltasone) 10 mg BID PO 07/27/17 09:45 07/28/17 09:20 A/P Assessment and Plan This is an 82-year-old female with myasthenia gravis and atrial fibrillation who presented with shortness of breathing Pneumonia -Labs significant for leukocytosis. Imaging significant for chest x-ray with left-sided consolidation and pleural effusion. continue Vancomycin and Zosyn. continue Steroids. bronchodilators. route sales specialist following. Atrial fibrillation with RVR, on Cardizem by mouth and Beta blockers, -Echocardiogram showed EF 55-60%. -Chest x-ray shows bilateral opacities right greater than left with moderate to large amount of right pleural effusion. -Patient was being worked up by Dr. Gaston as outpatient. -Outpatient PET scan: large loculated pleural effusion with pleural uptake highly suspicious for pleural based metastatic disease as well as mediastinal adenopathy, highly suspicious for metastatic disease, a right lung base parenchymal opacity is mass like essentially consolidated lung. to continue antibiotics and Potassium replacement. Echo from February 2017 showed EF 55-60%. -Patient given Zosyn and vancomycin in the ED. We will continue with vancomycin and Zosyn. at this time blood culture negative removed Vancomycin. -Questioned probable malignancy, as per Cardiology do not know why the patient is off anticoagulation will get information from the office. Respiratory Failure during the night she was on BiPAP and today on non Rebreather mask to continue steroids, Bronchodilator Mucolytic and incentive spirometry. Loculated Pleural effusion status post Thoracentesis. obtained 425 ml of fluid awaiting to follow cytology. today was recommended for Therapeutic Thoracentesis but not enough fluid for procedure. electrolyte derangement replacing and following. Potassium 3.4 given 30 meq of Potassium chloride. Mildly elevated troponin -Troponin 0 0.05 now 0.08. Most likely secondary to age of atrial fibrillation with RVR causing demand ischemia. Hypothyroidism/hypertension/GERD -continue hormonal replacement. -Dysphagia may be related to Myasthenia Gravis, continue Prednisone, Barium Swallow DVT prophylaxis -Heparin Code Status daughter, She stated she wants to be a DNI. She is okay with chest compression , shock and medication. she stated her daughter in law will bring her living will. Discussed Condition With Discussed with Patient and her Daughter in law offered Hospice, they preferred to wait for route sales specialist Doctor Juan Carlos who is agreeable with Hospice placement for the patient Poor short term prognosis. Discharge Planning Clear for discharge to hospice once bed available. Froy Hart MD Jul 29, 2017 18:08
[2017-07-30] VITALS (19 sets, daily range): BP systolic 95–125; BP diastolic 51–62; PULSE 60–100; RESP 20–22; TEMP 97.4–97.7; O2SAT 64–100
[2017-07-30] MEDS: PIPERACIL-TAZO 4.5 GM PREMIX 100 ML IV SCH ×2 (06:51→13:23)
[2017-07-30] MEDS: DILTIAZEM HCL 90 MG TAB PO SCH ×2 (06:51→13:23)
[2017-07-30] MEDS: HEPARIN SODIUM - SQ 10,000 UNITS/ML VIAL SQ SCH (06:52)
[2017-07-30] MEDS: POLYETHYLENE GLYCOL 17 GM PKG PO SCH (09:00)
[2017-07-30] MEDS: SODIUM CHLORIDE 0.9% FLUSH 10 ML FLUSH IV FLUSH SCH (09:00)
--- NOTE | 2017-07-30 09:05 | HHI.PR ---
Subjective Remarks This is an 82-year-old female with history of myasthenia gravis, hypertension, atrial fibrillation, and chronic anemia who presented with shortness of breathing. Patient stated that shortness of breathing happened last night so she went to the emergency department. Patient stated that about 2 weeks ago she has been having a cough so was seen finishing trimmer Dr. Gaston. Patient stated that she had a thoracentesis done about 1-1/2 weeks ago when she had 100 cc of fluid taken out. She also said that she had a PET scan done. Patient stated that she does not know the results. Patient also found wheezing upon exam she said that she had never had any history of wheezing. Denies any history of COPD or asthma. She denies any chest pain, palpitation, lightheadedness or dizziness. Seen in her bedroom in the presence of her Daughter, she has Respiratory insufficiency, followed by guest specialist, recommended to continue Bronchodilator Steroids, awaiting for Right ultrasound guided thoracentesis, to continue Zosyn and Vancomycin. Lasix. Echocardiogram from February 2017 showed EF 55 to 60%. 07/26: Seen in her bedroom and discussed with nurse and her Daughter, her rate is controlled, status post Thoracentesis removed 425 ml of fluid no nausea, vomit or diarrhea. seen by guest specialist recommended to continue Oxygen, to follow cytology from Thoracentesis, Outpatient PET scan: large loculated pleural effusion with pleural uptake highly suspicious for pleural based metastatic disease as well as mediastinal adenopathy, highly suspicious for metastatic disease, a right lung base parenchymal opacity is mass like essentially consolidated lung. to continue antibiotics and Potassium replacement. Echo from February 2017 showed EF 55-60%. 07/27: Seen in her bedroom, discussed with her Daughter Miss August, she complaint of Dysphagia, asked for Speech therapy for swallow eval, Barium Swallow asked may be related to Myasthenia Gravis but will rule out other pathology. no nausea vomit or diarrhea, her Daughter asking for PET scan result will leave that to guest specialist. 07/28: Seen in her bedroom and discussed with her Daughter in law. 07/29: Discussed with Daughter in law and patient she is worsening respiratory steward, I offered for Hospice, but will wait for final recommendations by guest specialist Doctor Juan Carlos, who came and saw the patient and was agreeable with Hospice, asked for Consult. no nausea, vomit or diarrhea. the patient is been on BiPAP during the night and today on non rebreather mask. 07/30: Seen in her bedroom and going to Hospice now. Objective Vital Signs Date Time Temp Pulse Resp B/P (MAP) Pulse Ox O2 Delivery O2 Flow Rate FiO2 07/30/17 07:01 88 07/30/17 06:06 67 07/30/17 05:00 87 07/30/17 04:23 100 22.00 40 07/30/17 04:00 72 20 125/62 (83) 95 07/30/17 04:00 74 07/30/17 04:00 71 07/30/17 03:00 68 07/30/17 02:00 60 07/30/17 01:00 66 07/30/17 00:00 100 07/30/17 00:00 75 07/30/17 00:00 97.5 86 22 125/62 (83) 100 07/29/17 23:54 98 Non-Rebreather 15.00 100 07/29/17 23:00 94 07/29/17 22:00 92 07/29/17 21:00 80 07/29/17 20:00 88 18 108/54 (72) 97 07/29/17 20:00 86 07/29/17 20:00 86 07/29/17 20:00 Bi-Pap 15.00 40 Non-Rebreather 07/29/17 19:46 100 40 07/29/17 19:00 98 07/29/17 18:38 99 07/29/17 17:34 94 07/29/17 16:08 100 07/29/17 15:38 97.9 94 20 111/48 (69) 98 07/29/17 15:38 94 07/29/17 14:48 96 40 07/29/17 13:24 100 Non-Rebreather 15.00 07/29/17 13:23 98 07/29/17 12:53 97.9 105 20 117/54 (75) 100 07/29/17 12:53 101 07/29/17 11:13 100 07/29/17 10:51 112 07/29/17 09:36 111 I/O 07/29/17 07/29/17 07/29/17 07/30/17 07/30/17 07/30/17 07:00 15:00 23:00 07:00 15:00 23:00 Intake Total 460 ml 120 ml Output Total 1900 ml 401 ml 500 ml Balance -1440 ml -281 ml -500 ml Intake Oral 240 ml 120 ml IV Total 220 ml Output Urine Total 1900 ml 400 ml 500 ml Stool Total 1 ml # Voids 1 Result Diagram: 07/29/17 0540 Imaging Last Impressions Chest Ultrasound 07/29/17 0000 Signed Impressions: Service Date/Time: Saturday, July 29, 2017 09:16 - CONCLUSION: Right-sided therapeutic thoracentesis was not performed due to the small amount of complex pleural fluid. Sammy Louise MD Barium Swallow X-Ray 07/28/17 0000 Signed Impressions: Service Date/Time: Friday, July 28, 2017 11:14 - CONCLUSION: 1. Severe esophageal motility disorder. 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 No aspiration noted. Reflux to upper esophagus. Naman Tate MD Chest CT 07/26/17 0000 Signed Impressions: Service Date/Time: Thursday, July 27, 2017 14:52 - CONCLUSION: Large right-sided pleural effusion with pleural thickening, small left effusion. Patchy airspace disease, right lower lobe atelectasis and mediastinal adenopathy. Joseph Williamson MD Chest X-Ray 07/25/17 0032 Signed Impressions: Service Date/Time: Tuesday, July 25, 2017 00:38 - CONCLUSION: There is essentially complete opacification of the right hemithorax currently related to worsening consolidation and effusion. Jose Herman MD Thoracentesis Ultrasound 07/25/17 0000 Signed Impressions: Service Date/Time: Tuesday, July 25, 2017 16:08 - CONCLUSION: The ultrasound images show the effusion on the right to be highly loculated. This will limit the amount of fluid that can be removed via thoracentesis. Eduardo Broderick Jr., MD Procedures Right Thoracentesis 07/25/17 Obtained 425 ml Other Results Laboratory Tests Test 07/24/17 03:22 07/24/17 10:15 07/24/17 18:00 07/25/17 00:28 Blood Urea Nitrogen 22 MG/DL Creatinine 0.69 MG/DL Random Glucose 121 MG/DL Total Protein 6.9 GM/DL Albumin 2.0 GM/DL Calcium Level 9.3 MG/DL Alkaline Phosphatase 102 U/L Aspartate Amino Transf (AST/SGOT) 19 U/L Alanine Aminotransferase (ALT/SGPT) 22 U/L Total Bilirubin 0.2 MG/DL Sodium Level 129 MEQ/L Potassium Level 3.7 MEQ/L Chloride Level 87 MEQ/L Carbon Dioxide Level 35.7 MEQ/L B-Type Natriuretic Peptide 422 PG/ML Lipase 85 U/L Lactic Acid Level 2.6 mmol/L Prothrombin Time 10.1 SEC Prothromb Time International Ratio 1.0 RATIO Activated Partial Thromboplast Time 25.4 SEC Total Creatine Kinase 40 U/L Troponin I 0.08 NG/ML Thyroid Stimulating Hormone 3rd Gen 2.420 uIU/ML Blood Gas Liter Flow 15 L/M Test 07/25/17 05:30 07/25/17 17:26 07/27/17 04:40 07/28/17 06:08 White Blood Count 10.8 TH/MM3 Red Blood Count 3.10 MIL/MM3 Hemoglobin 10.5 GM/DL Hematocrit 30.4 % Mean Corpuscular Volume 98.2 FL Mean Corpuscular Hemoglobin 33.7 PG Mean Corpuscular Hemoglobin Concent 34.4 % Red Cell Distribution Width 14.2 % Platelet Count 179 TH/MM3 Mean Platelet Volume 7.4 FL Neutrophils (%) (Auto) 97.4 % Lymphocytes (%) (Auto) 1.5 % Monocytes (%) (Auto) 1.1 % Eosinophils (%) (Auto) 0.0 % Basophils (%) (Auto) 0.0 % Neutrophils # (Auto) 10.5 TH/MM3 Lymphocytes # (Auto) 0.2 TH/MM3 Monocytes # (Auto) 0.1 TH/MM3 Eosinophils # (Auto) 0.0 TH/MM3 Basophils # (Auto) 0.0 TH/MM3 CBC Comment DIFF FINAL Differential Comment Body Fluid Amylase Source PLEURAL Body Fluid Amylase 18 U/L Pleural Fluid WBC 205 /MM3 Pleural Fluid RBC 70096 /MM3 Pleural Fluid Neutrophils 86 % Pleural Fluid Lymphocytes 14 % Pleural Fluid Total Protein 2.6 GM/DL Pleural Fluid LDH 369 U/L Pleural Fluid Glucose 96 MG/DL Vancomycin Level Trough 10.4 MCG/ML Blood Urea Nitrogen 17 MG/DL Creatinine 0.64 MG/DL Random Glucose 125 MG/DL Calcium Level 9.9 MG/DL Phosphorus Level 1.8 MG/DL Magnesium Level 2.2 MG/DL Sodium Level 140 MEQ/L Potassium Level 3.4 MEQ/L Chloride Level 95 MEQ/L Carbon Dioxide Level 41.3 MEQ/L Test 07/29/17 04:42 07/29/17 05:40 Blood Gas Puncture Site RT RADIAL Blood Gas Patient Temperature 98.6 Blood Gas HCO3 44 mmol/L Blood Gas Base Excess 18.0 mmol/L Blood Gas Oxygen Saturation 93 % Arterial Blood pH 7.43 Arterial Blood Partial Pressure CO2 66 mmHg Arterial Blood Partial Pressure O2 77 mmHg Arterial Blood Oxygen Content 15.2 Vol % Arterial Blood Carboxyhemoglobin 1.0 % Arterial Blood Methemoglobin 1.1 % Blood Gas Hemoglobin 11.6 G/DL Oxygen Delivery Device BIPAP Blood Gas Ventilator Setting 15IPAP/10EPAP Blood Gas Inspired Oxygen 40 % Blood Urea Nitrogen 17 MG/DL Creatinine 0.67 MG/DL Random Glucose 111 MG/DL Calcium Level 10.6 MG/DL Magnesium Level 2.0 MG/DL Sodium Level 140 MEQ/L Potassium Level 3.3 MEQ/L Chloride Level 92 MEQ/L Carbon Dioxide Level 43.8 MEQ/L Anion Gap 4 MEQ/L Estimat Glomerular Filtration Rate 84 ML/MIN Objective Remarks GENERAL: Well-developed patient, in no apparent distress. SKIN: No rashes, ecchymoses or lesions. Cool and dry. HEAD: Atraumatic. Normocephalic. No temporal or scalp tenderness. EYES: Pupils equal round and reactive. Extraocular motions intact. No scleral icterus. No injection or drainage. NECK: Trachea midline. No JVD or lymphadenopathy. Supple CARDIOVASCULAR: Irregular rate and irregular rhythm without murmurs RESPIRATORY: Decreased breath sounds bilateral, No wheezing or crackles. GASTROINTESTINAL: Abdomen soft, non-tender, nondistended. MUSCULOSKELETAL: Extremities without clubbing, cyanosis, or edema. NEUROLOGICAL: Awake and alert. No focal deficits. Medications and IVs Current Medications Medications (Trade) Dose Ordered Sig/Naldo Route Start Time Stop Time Status Last Admin Piperacillin Sod/ Tazobactam Sod 100 ml @ 200 mls/hr Q6H IV 07/24/17 11:00 07/30/17 06:51 (NS Flush) 2 ml UNSCH PRN IV FLUSH 07/24/17 05:45 (NS Flush) 2 ml BID IV FLUSH 07/24/17 09:00 07/29/17 23:55 (Tylenol) 650 mg Q4H PRN PO 07/24/17 05:45 07/26/17 21:36 (Zofran Inj) 4 mg Q6H PRN IVP 07/24/17 05:45 (Narcan Inj) 0.4 mg UNSCH PRN IV PUSH 07/24/17 05:45 (Connie-Colace) 1 tab BID PO 07/24/17 09:00 07/28/17 09:20 (Milk Of Magnesia Liq) 30 ml Q12H PRN PO 07/24/17 05:45 (Senokot) 17.2 mg Q12H PRN PO 07/24/17 05:45 (Dulcolax Supp) 10 mg DAILY PRN RECTAL 07/24/17 05:45 (Lactulose Liq) 30 ml DAILY PRN PO 07/24/17 05:45 (Lopressor) 25 mg Q12HR PO 07/24/17 13:00 07/29/17 23:53 (Albuterol Concentrated Neb) 2.5 mg Q2HR NEB PRN NEB 07/24/17 13:45 07/29/17 13:22 (Lasix Inj) 20 mg DAILY IV PUSH 07/24/17 14:00 07/29/17 10:09 (Heparin Inj) 5,000 units Q8HR SQ 07/24/17 22:00 07/30/17 06:52 (Cardizem) 90 mg Q6HR PO 07/25/17 00:00 07/30/17 06:51 (Miralax) 17 gm DAILY PO 07/25/17 11:15 07/29/17 10:08 (Mycostatin Liq) 5 ml QID SWISH-SWAL 07/25/17 13:00 07/29/17 23:54 (Deltasone) 10 mg BID PO 07/27/17 09:45 07/29/17 23:53 A/P Assessment and Plan This is an 82-year-old female with myasthenia gravis and atrial fibrillation who presented with shortness of breathing Pneumonia -Labs significant for leukocytosis. Imaging significant for chest x-ray with left-sided consolidation and pleural effusion. continue Vancomycin and Zosyn. continue Steroids. bronchodilators. guest specialist following. Atrial fibrillation with RVR, on Cardizem by mouth and Beta blockers, -Echocardiogram showed EF 55-60%. -Chest x-ray shows bilateral opacities right greater than left with moderate to large amount of right pleural effusion. -Patient was being worked up by Dr. Gaston as outpatient. -Outpatient PET scan: large loculated pleural effusion with pleural uptake highly suspicious for pleural based metastatic disease as well as mediastinal adenopathy, highly suspicious for metastatic disease, a right lung base parenchymal opacity is mass like essentially consolidated lung. to continue antibiotics and Potassium replacement. Echo from February 2017 showed EF 55-60%. -Patient given Zosyn and vancomycin in the ED. We will continue with vancomycin and Zosyn. at this time blood culture negative removed Vancomycin. -Questioned probable malignancy, as per Cardiology do not know why the patient is off anticoagulation will get information from the office. Respiratory Failure during the night she was on BiPAP and today on non Rebreather mask to continue steroids, Bronchodilator Mucolytic and incentive spirometry. Loculated Pleural effusion status post Thoracentesis. obtained 425 ml of fluid awaiting to follow cytology. today was recommended for Therapeutic Thoracentesis but not enough fluid for procedure. electrolyte derangement replacing and following. Potassium 3.4 given 30 meq of Potassium chloride. Mildly elevated troponin -Troponin 0 0.05 now 0.08. Most likely secondary to age of atrial fibrillation with RVR causing demand ischemia. Hypothyroidism/hypertension/GERD -continue hormonal replacement. -Dysphagia may be related to Myasthenia Gravis, continue Prednisone, Barium Swallow DVT prophylaxis -Heparin Code Status daughter, She stated she wants to be a DNI. She is okay with chest compression , shock and medication. she stated her daughter in law will bring her living will. Discussed Condition With Discussed with Patient and her Daughter in law offered Hospice, they preferred to wait for guest specialist Doctor Juan Carlos who is agreeable with Hospice placement for the patient Poor short term prognosis. Discharge Planning Discharge to hospice now. Froy Hart MD Jul 30, 2017 09:05
[2017-07-30] MEDS: predniSONE 10 MG TAB PO SCH (09:26)
[2017-07-30] MEDS: METOPROLOL TARTRATE 25 MG TAB PO SCH (09:26)
[2017-07-30] MEDS: FUROSEMIDE 20 MG/2 ML VIAL IV PUSH SCH (09:26)
[2017-07-30] MEDS: DOCUSATE SODIUM 50 MG/SENNA 8.6 MG TAB PO SCH (09:26)
[2017-07-30] MEDS: NYSTATIN SUSP 500,000 U/5 ML CUP SWISH-SWAL SCH ×2 (09:26→13:23)
--- NOTE | 2017-07-30 15:20 | HHI.DS ---
Discharge Summary Admission Date Jul 24, 2017 at 05:08 Discharge Date: Jul 30, 2017 Admitting Diagnosis RAPID AFIB (1) Respiratory failure ICD Code: J96.90 - Respiratory failure, unspecified, unspecified whether with hypoxia or hypercapnia Diagnosis: Principal (2) Myasthenia gravis ICD Code: G70.00 - Myasthenia gravis without (acute) exacerbation Diagnosis: Secondary Status: Acute (3) Paroxysmal atrial fibrillation ICD Code: I48.0 - Paroxysmal atrial fibrillation Diagnosis: Principal Status: Acute Procedures Right Thoracentesis 07/25/17 Obtained 425 ml Brief History - From Admission This is an 82-year-old female with history of myasthenia gravis, hypertension, atrial fibrillation, and chronic anemia who presented with shortness of breathing. Patient stated that shortness of breathing happened last night so she went to the emergency department. Patient stated that about 2 weeks ago she has been having a cough so was seen health safety and environment manager Dr. Gaston. Patient stated that she had a thoracentesis done about 1-1/2 weeks ago when she had 100 cc of fluid taken out. She also said that she had a PET scan done. Patient stated that she does not know the results. Patient also found wheezing upon exam she said that she had never had any history of wheezing. Denies any history of COPD or asthma. She denies any chest pain, palpitation, lightheadedness or dizziness. Patient's daughter at the bedside during the interview. She is asking for a second opinion with a different health safety and environment manager. All other review of system reviewed and negative. CBC/BMP: 07/29/17 0540 Significant Findings Laboratory Tests Test 07/28/17 06:08 07/29/17 04:42 07/29/17 05:40 Random Glucose 125 MG/DL (74-106) 111 MG/DL (74-106) Phosphorus Level 1.8 MG/DL (2.5-4.9) Potassium Level 3.4 MEQ/L (3.5-5.1) 3.3 MEQ/L (3.5-5.1) Chloride Level 95 MEQ/L (98-107) 92 MEQ/L (98-107) Carbon Dioxide Level 41.3 MEQ/L (21.0-32.0) 43.8 MEQ/L (21.0-32.0) Anion Gap 4 MEQ/L (5-15) 4 MEQ/L (5-15) Estimat Glomerular Filtration Rate 88 ML/MIN (>89) 84 ML/MIN (>89) Blood Gas HCO3 44 mmol/L (22-26) Blood Gas Base Excess 18.0 mmol/L (-2-2) Arterial Blood pH 7.43 (7.380-7.420) Arterial Blood Partial Pressure CO2 66 mmHg (38-42) Blood Gas Hemoglobin 11.6 G/DL (12.0-16.0) Calcium Level 10.6 MG/DL (8.5-10.1) Imaging Last Impressions Chest Ultrasound 07/29/17 0000 Signed Impressions: Service Date/Time: Saturday, July 29, 2017 09:16 - CONCLUSION: Right-sided therapeutic thoracentesis was not performed due to the small amount of complex pleural fluid. Sammy Louise MD Barium Swallow X-Ray 07/28/17 0000 Signed Impressions: Service Date/Time: Friday, July 28, 2017 11:14 - CONCLUSION: 1. Severe esophageal motility disorder. 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 No aspiration noted. Reflux to upper esophagus. Naman Tate MD Chest CT 07/26/17 0000 Signed Impressions: Service Date/Time: Thursday, July 27, 2017 14:52 - CONCLUSION: Large right-sided pleural effusion with pleural thickening, small left effusion. Patchy airspace disease, right lower lobe atelectasis and mediastinal adenopathy. Joseph Williamson MD Chest X-Ray 07/25/17 0032 Signed Impressions: Service Date/Time: Tuesday, July 25, 2017 00:38 - CONCLUSION: There is essentially complete opacification of the right hemithorax currently related to worsening consolidation and effusion. Jose Herman MD Thoracentesis Ultrasound 07/25/17 0000 Signed Impressions: Service Date/Time: Tuesday, July 25, 2017 16:08 - CONCLUSION: The ultrasound images show the effusion on the right to be highly loculated. This will limit the amount of fluid that can be removed via thoracentesis. Eduardo Broderick Jr., MD PE at Discharge GENERAL: Well-developed patient, in no apparent distress. SKIN: No rashes, ecchymoses or lesions. Cool and dry. HEAD: Atraumatic. Normocephalic. No temporal or scalp tenderness. EYES: Pupils equal round and reactive. Extraocular motions intact. No scleral icterus. No injection or drainage. NECK: Trachea midline. No JVD or lymphadenopathy. Supple CARDIOVASCULAR: Irregular rate and irregular rhythm without murmurs RESPIRATORY: Decreased breath sounds bilateral, No wheezing or crackles. GASTROINTESTINAL: Abdomen soft, non-tender, nondistended. MUSCULOSKELETAL: Extremities without clubbing, cyanosis, or edema. NEUROLOGICAL: Awake and alert. No focal deficits. Hospital Course This is an 82-year-old female with history of myasthenia gravis, hypertension, atrial fibrillation, and chronic anemia who presented with shortness of breathing. Patient stated that shortness of breathing happened last night so she went to the emergency department. Patient stated that about 2 weeks ago she has been having a cough so was seen health safety and environment manager Dr. Gaston. Patient stated that she had a thoracentesis done about 1-1/2 weeks ago when she had 100 cc of fluid taken out. She also said that she had a PET scan done. Patient stated that she does not know the results. Patient also found wheezing upon exam she said that she had never had any history of wheezing. Denies any history of COPD or asthma. She denies any chest pain, palpitation, lightheadedness or dizziness. Seen in her bedroom in the presence of her Daughter, she has Respiratory insufficiency, followed by lighting specialist, recommended to continue Bronchodilator Steroids, awaiting for Right ultrasound guided thoracentesis, to continue Zosyn and Vancomycin. Lasix. Echocardiogram from February 2017 showed EF 55 to 60%. 07/26: Seen in her bedroom and discussed with nurse and her Daughter, her rate is controlled, status post Thoracentesis removed 425 ml of fluid no nausea, vomit or diarrhea. seen by lighting specialist recommended to continue Oxygen, to follow cytology from Thoracentesis, Outpatient PET scan: large loculated pleural effusion with pleural uptake highly suspicious for pleural based metastatic disease as well as mediastinal adenopathy, highly suspicious for metastatic disease, a right lung base parenchymal opacity is mass like essentially consolidated lung. to continue antibiotics and Potassium replacement. Echo from February 2017 showed EF 55-60%. 07/27: Seen in her bedroom, discussed with her Daughter Miss August, she complaint of Dysphagia, asked for Speech therapy for swallow eval, Barium Swallow asked may be related to Myasthenia Gravis but will rule out other pathology. no nausea vomit or diarrhea, her Daughter asking for PET scan result will leave that to lighting specialist. 07/28: Seen in her bedroom and discussed with her Daughter in law. 07/29: Discussed with Daughter in law and patient she is worsening respiratory steward, I offered for Hospice, but will wait for final recommendations by lighting specialist Doctor Juan Carlos, who came and saw the patient and was agreeable with Hospice, asked for Consult. no nausea, vomit or diarrhea. the patient is been on BiPAP during the night and today on non rebreather mask. 07/30: Seen in her bedroom and going to Hospice now. Assessment and Plan This is an 82-year-old female with myasthenia gravis and atrial fibrillation who presented with shortness of breathing Pneumonia -Labs significant for leukocytosis. Imaging significant for chest x-ray with left-sided consolidation and pleural effusion. continue Vancomycin and Zosyn. continue Steroids. bronchodilators. lighting specialist following. Atrial fibrillation with RVR, on Cardizem by mouth and Beta blockers, -Echocardiogram showed EF 55-60%. -Chest x-ray shows bilateral opacities right greater than left with moderate to large amount of right pleural effusion. -Patient was being worked up by Dr. Gaston as outpatient. -Outpatient PET scan: large loculated pleural effusion with pleural uptake highly suspicious for pleural based metastatic disease as well as mediastinal adenopathy, highly suspicious for metastatic disease, a right lung base parenchymal opacity is mass like essentially consolidated lung. to continue antibiotics and Potassium replacement. Echo from February 2017 showed EF 55-60%. -Patient given Zosyn and vancomycin in the ED. We will continue with vancomycin and Zosyn. at this time blood culture negative removed Vancomycin. -Questioned probable malignancy, as per Cardiology do not know why the patient is off anticoagulation will get information from the office. Respiratory Failure during the night she was on BiPAP and today on non Rebreather mask to continue steroids, Bronchodilator Mucolytic and incentive spirometry. Loculated Pleural effusion status post Thoracentesis. obtained 425 ml of fluid awaiting to follow cytology. today was recommended for Therapeutic Thoracentesis but not enough fluid for procedure. electrolyte derangement replacing and following. Potassium 3.4 given 30 meq of Potassium chloride. Mildly elevated troponin -Troponin 0 0.05 now 0.08. Most likely secondary to age of atrial fibrillation with RVR causing demand ischemia. Hypothyroidism/hypertension/GERD -continue hormonal replacement. -Dysphagia may be related to Myasthenia Gravis, continue Prednisone, Barium Swallow DVT prophylaxis -Heparin Code Status daughter, She stated she wants to be a DNI. She is okay with chest compression , shock and medication. she stated her daughter in law will bring her living will. Discussed Condition With Discussed with Patient and her Daughter in law offered Hospice, they preferred to wait for lighting specialist Doctor Juan Carlos who is agreeable with Hospice placement for the patient Poor short term prognosis. Discharge Planning Discharge to hospice now. Pt Condition on Discharge: Deteriorating Discharge Disposition: Hospice/Med Facility Discharge Time: > 30 minutes Discharge Instructions DIET: Follow Instructions for: As Tolerated, No Restrictions Activities you can perform: Regular-No Restrictions Froy Hrat MD Jul 30, 2017 15:20
== END 2017-07-30 13:57 | disposition hospice, inpatient (51) | DRG 186 ==
LOC: NEPE 03:11 → NEDA 05:08 → NEDH 08:52 → HCIS 13:12
PROVIDERS: ADMIT Internal Medicine; ATTEND Internal Medicine
PROC: 0W993ZX Drainage of Right Pleural Cavity, Percutaneous Approach, Diagnostic (ICD-10-PCS; principal; 2017-07-25)
PROC: 5A09357 Assistance with Respiratory Ventilation, Less than 24 Consecutive Hours, Continuous Positive Airway Pressure (ICD-10-PCS; 2017-07-25)
DX: J90 Pleural effusion, not elsewhere classified (principal); J18.9 Pneumonia, unspecified organism; J96.90 Respiratory failure, unspecified, unspecified whether with hypoxia or hypercapnia; I24.8 Other forms of acute ischemic heart disease; I48.0 Paroxysmal atrial fibrillation; G70.00 Myasthenia gravis without (acute) exacerbation; D64.9 Anemia, unspecified; E87.1 Hypo-osmolality and hyponatremia; E83.39 Other disorders of phosphorus metabolism; R13.10 Dysphagia, unspecified; J45.909 Unspecified asthma, uncomplicated; E03.9 Hypothyroidism, unspecified; I10 Essential (primary) hypertension; K21.9 Gastro-esophageal reflux disease without esophagitis; R00.0 Tachycardia, unspecified; M19.90 Unspecified osteoarthritis, unspecified site; R59.0 Localized enlarged lymph nodes; E87.6 Hypokalemia; Z92.21 Personal history of antineoplastic chemotherapy; Z85.3 Personal history of malignant neoplasm of breast
CPT/HCPCS: 32555; 36600; 71045; 71260; 74230; 76604; 80048; 80053; 80202; 82150; 82550; 82805; 82945; 83605; 83615; 83690; 83735; 83880; 84100; 84132; 84157; 84443; 84484; 85025; 85610; 85730; 87040; 87070; 87102; 87205; 87206; 88112; 88305; 89051; 93005; 93306; 94002; 94003; 94640; 94664; 96374; 96376; C1729; J1644; J1940; J2543; J2930; J3370; J3480; J7050; J7512; J7611; Q9967